=== PATIENT | female | born 1960 | race Caucasian/White ===

== ENCOUNTER 2016-07-04 11:02 | Emergency (ER) ==
--- NOTE | 2016-07-04 12:37 | PROVIDER DOCUMENTATION ---
HPI-Musculoskeletal Pain/Inj - GENERAL Chief Complaint: Fall Stated Complaint: FALL Time Seen by Provider: 07/04/16 12:26 Source: patient - HX OF PRESENT ILLNESS-MUSKULOSKELTAL Nature of Presenting Problem: 56 y/o WF c/o left knee pain after falling off the last step of an [employer] bus. Denies hitting head or loc. She was on her way back from [facility], M/W/F dialysis. Denies pain in other locations. The knee bled, controlled now. Ambulatory. Denies dec rom, but states it is sore. Denies obvious deformity Review of Systems - Adult - REVIEW OF SYSTEMS - ADULT Constitutional: reports: no symptoms reported. denies: chills, fever, fatique Eyes: reports: no symptoms reported. denies: blurred vision, double vision, eye pain Ears, Nose, Mouth & Throat: reports: no symptoms reported. denies: ear pain, nose pain, throat pain Cardiovascular: reports: no symptoms reported. denies: chest pain, palpitations Respiratory: reports: no symptoms reported. denies: cough, shortness of breath , wheezing Gastrointestinal: reports: no symptoms reported. denies: abdominal pain, diarrhea, nausea, vomiting Genitourinary: reports: no symptoms reported. denies: dysuria, discharge, frequency, incontinence Musculoskeletal: reports: see HPI, joint pain, joint swelling, muscle aches. denies: bone pain, back pain, neck pain Integumentary: reports: no symptoms reported. denies: rash Neurological: reports: no symptoms reported. denies: headache/migraines Psychiatric: reports: no symptoms reported Endocrine: reports: no symptoms reported Hematologic/Lymphatic: reports: no symptoms reported Allergic/Immunologic: reports: no symptoms reported All Other Systems: Reviewed and Negative Past History - Adult - PAST MEDICAL HISTORY-ADULT Review of Records: reports: Old Records Reviewed, Nursing Assessment Review, Medications Reviewed, Social history reviewed & non-contributory. Major Childhood Illnesses: reports: history unknown Cardiovascular: reports: HTN Respiratory: reports: denies history Gastrointestinal: reports: GERD Obstetrical/Gynecological: reports: other (breast cancer/ hysterectomy) Genitourinary: reports: dialysis (Mon, Wed, Fri), ESRD Musculoskeletal: reports: denies history Neurological: reports: denies history Psychiatric: reports: anxiety Endocrine/Immune: reports: Diabetes, thyroid disorder Other Conditions: reports: denies history - PRIOR SURGERIES/PROCEDURES Surgical/Procedure History: reports: cholecystectomy, hysterectomy, other (left mastectomy) - IMMUNIZATION STATUS Childhood Immunizations: UTD Flu Vaccine: UTD - FAMILY HISTORY Family History: reviewed, not pertinent - SOCIAL HISTORY Smoking: denies Substance Use: none/never Alcohol Use Frequency: never Physical Exam-Injury Related - Physical Exam-Injury Related Initial Vital Signs Reviewed: Yes General Appearance: appears well, alert, no apparent distress, obese Eyes: PERRL/EOMI, pink conjunctivae Head, Ears, Nose, Mouth & Throat: normocephalic/atraumatic, moist mucous membranes Neck: non-tender, full range of motion, supple, normal inspection. negative: C- spine tenderness Respiratory: chest non-tender, lungs clear, normal breath sounds, no pleuratic chest pain, no respiratory distress, no accessory muscle use. negative: respiratory distress, decreased breath sounds, accessory muscle use, crackles, rales, rhonchi, stridor, wheezing Cardiovascular: normal peripheral pulses, regular rate, rhythm, no edema, no gallop, no JVD, no murmur Peripheral Pulses: dorsalis-pedis (R): 2+, dorsalis-pedis (L): 2+ Lymphatic: no adenopathy Extremity: normal range of motion, normal gait, normal inspection, no pedal edema, no calf tenderness, normal capillary refill, pelvis stable, other (left knee: there is a very minimal abrasion on the anterior left knee, no swelling appreciated. Full rom, strength 5/5. Negative Lockmans, valgus and varus stressing.) Integumentary: normal color, warm/dry Neurologic: grossly normal, no motor/sensory deficits Psych/Mental Status: AL, normal mood/affect, normal thought content, normal thought process, oriented x 3 - Glascow Coma Score Best Eye Response ([place]): (4) open spontaneously Best Verbal Response ([place]): (5) oriented Best Motor Response ([place]): (6) obeys commands Progress - PLAN OF CARE/RESULTS Progress/Plan/Lab Results: Vital Signs Temp Pulse Resp BP Pulse Ox 07/04/16 14:32 73 18 119/68 100 07/04/16 11:15 97.3 F L 72 18 161/66 100 Penicillins Allergy (Mild, Verified 05/28/16 18:51) RASH Gabapentin [Neurontin] 300 mg PO ORDERED 01/13/14 Levothyroxine Sodium [Synthroid] 200 mcg PO QAM 01/13/14 Furosemide 40 mg PO DAILY 03/16/14 Niacin 500 mg PO DAILY 03/16/14 Amlodipine Besylate [Norvasc] 10 mg PO DAILY 06/14/14 Cinnamon Bark/Chromium Picolin [Cinnamon Plus Chromium Capsule] 1 each PO DAILY 03/29/15 Insulin Detemir [Levemir] 100 unit SUBQ QHS 03/29/15 Insulin Glulisine [Apidra] 30 unit SUBQ BID 03/29/15 Levothyroxine [Synthroid] 25 microgm PO DAILY 01/31/16 [place]-3 Fatty Acids/Fish Oil [Fish Oil 1,000 mg Softgel] 1 each PO DAILY Quetiapine Fumarate 200 mg PO HS 01/31/16 Saxagliptin [Onglyza] 5 mg PO DAILY 01/31/16 Venlafaxine HCl [Venlafaxine HCl ER] 375 mg PO BID 01/31/16 Glycerin [Colace] 1 each RC PRN PRN #15 supp.rect 05/28/16 Tramadol [Ultram] 50 mg PO Q8HR #20 tablet 07/04/16 Orders Category Date Time Status Knee Immobilizer .left Care 07/04/16 14:04 Active EXTREM LOWER W/O CONTRAST [CT] Stat Exams 07/04/16 13:22 Draft KNEE 3 VIEWS LEFT [RAD] Stat Exams 07/04/16 12:27 Draft - XRAY 1 XRAY: Left XRAY Study: Knee Impression: Abnormal (? possible lateral tibial plateau fracture. consider futher imaging with CT or MRI per Dr. Ortega, radiology) - CT/MRI 1 CT Study: Lower Ext Impression: Abnormal (chronic appearing lateral tibial plateau deformity. no definite acute fracture. no ligament rupture. Large nonspecific joint effusion.) Departure - Departure Time of Disposition Order: 14:05 DIAGNOSIS: Knee effusion, left Disposition: HOME 01 Certified Medical Emergency: Emergent Condition: Stable Additional Instructions: Follow up with Dr. Lua, orthopedic ED Follow Up Instructions: You have been treated by a care provider in the Emergency Department. These instructions are being provided to you so you can have an understanding of how to care for yourself upon discharge. Upon discharge from the Emergency Department, you are responsible for making arrangements for follow-up care by a physician of your choice. Take all prescribed medications as directed. Return to the Emergency Department immediately for any new or worsening symptoms. You may call the Physician Referral phone number at [phone] to obtain a list of Physicians who are taking new patients. Prescriptions: Tramadol [Ultram] 50 mg PO Q8HR #20 tablet Referrals: Ilir Rosado MD [Primary Care Provider] - Mayi Lua MD [STAFF PHYSICIAN] - Instructions: Knee Effusion, [id number] Attestation - Physician/ Mid-level Attestation Patient care was provided by Mid-level provider (ASSEMBLY MACHINE FEEDER/PA):: Yes Mid-level provider:: Radha Tipton Mid-level documentation review:: The Mid-level provider documentation, treatment plan and medical decision making was reviewed by the physician who agrees with all treatment and medical decision making by the MLP.
--- NOTE | 2016-07-04 13:30 | Diag Imaging Result Document ---
PROCEDURE NAME: KNEE 3 VIEWS LEFT - 07/04/2016 X-RAY LEFT KNEE 4 VIEWS: COMPARISON: None. FINDINGS: There is a large suprapatellar joint effusion. There is abnormal appearance of the bony trabeculae in an oblique fashion in the central tibial plateau extending to the lateral tibial plateau. A fracture here may be suspected. There is moderate, triple compartment osteoarthritis with significant degenerative osteophyte formation. There is also lateral subluxation of the patella with degenerative changes here. IMPRESSION: 1. Cannot exclude nondisplaced tibial plateau fracture. Correlate clinically. Further imaging may be considered. 2. Joint effusion. 3. Osteoarthritis.
--- NOTE | 2016-07-04 14:14 | Diag Imaging Result Document ---
PROCEDURE NAME: EXTREM LOWER W/O CONTRAST - 07/04/2016 CT OF THE KNEES: COMPARISON: Left knee x-ray earlier 07/04/2016. FINDINGS: There is indeed a large suprapatellar joint effusion on the left. There is some old degenerative deformity at the anterior lateral tibial plateau. No evidence of acute fracture. There is severe lateral tilting of the patella with extremely severe osteoarthritis here. There is also severe osteoarthritis at the medial joint compartment. The ACL and PCL are intact. There is degeneration at the patellar ligament insertion. The right knee demonstrates some osteoarthrosis but no fracture or dislocation. No joint effusion. IMPRESSION: 1. Large indeterminate joint effusion on the left. 2. Chronic-appearing mild depression of the lateral tibial plateau but no definite acute fracture. 3. The ACL and PCL are intact.
[2016-07-04 14:33] VITALS: BP 119/68
== END 2016-07-04 15:47 | disposition home or self-care (01) ==
LOC: ED 11:02
DX: M25.462 Effusion, left knee (principal); M25.562 Pain in left knee; S80.212A Abrasion, left knee, initial encounter; M79.1 Myalgia; E11.9 Type 2 diabetes mellitus without complications; E07.9 Disorder of thyroid, unspecified; I12.0 Hypertensive chronic kidney disease with stage 5 chronic kidney disease or end stage renal disease; N18.6 End stage renal disease; Z79.899 Other long term (current) drug therapy; Z85.3 Personal history of malignant neoplasm of breast; Z99.2 Dependence on renal dialysis; Z90.12 Acquired absence of left breast and nipple; E66.9 Obesity, unspecified; Z68.39 Body mass index [BMI] 39.0-39.9, adult; W17.89XA Other fall from one level to another, initial encounter; Z79.4 Long term (current) use of insulin
CPT/HCPCS: 73700

== ENCOUNTER 2016-12-26 10:45 | Observation (INO) ==
[2016-12-26 11:40] LABS: CALCIUM 8.7 mg/dL (8.8-10.2); POTASSIUM 3.4 mmol/L (3.5-5.1)
[2016-12-26 11:51] LABS: HEMATOCRIT 21.2 % (37.0-47.0); HEMOGLOBIN 6.7 g/dL (12.0-16.0); MCH 33.8 PG (27-31); MCHC 31.6 g/dL (33-37); MCV 107.1 FL (81-99); MPV 9.8 FL (7.4-10.4); RBC 1.98 XMIL (4.2-5.4)
[2016-12-26] MEDS ORDERED: NS 2,000 ML MISC PRN (13:36)
[2016-12-26] MEDS ORDERED: TIGHT: 0.2 ML/HR MISC PRN (13:36)
[2016-12-26] MEDS ORDERED: HEPARIN IV PRN (13:36)
[2016-12-26 14:46] LABS: ALBUMIN 4.2 g/dL (3.5-5.0); ALKALINE PHOSPHATASE 71 U/L (32-104); DIRECT BILIRUBIN < 0.20 mg/dL (0.00-0.20); GOT 19 U/L (10-30); GPT 5 U/L (10-36); TOTAL BILIRUBIN 0.19 mg/dL (0.20-1.00); TOTAL PROTEIN 7.1 g/dL (6.3-8.3)
--- NOTE | 2016-12-26 14:46 | PROVIDER DOCUMENTATION ---
This chart was entered by Williams Donovan Scribe, acting as scribe for Elier Gray MD. HPI-General Adult - General Chief Complaint: Abnormal Lab[s] Stated Complaint: LOW BLOOD Time Seen by Provider: 12/26/16 10:54 Source: patient Allergies/Adverse Reactions: Patient Allergies Allergy/AdvReac Type Severity Reaction Status Date / Time Penicillins Allergy Mild RASH Verified 12/26/16 11:07 Home Medications: Home Medication List Medication Instructions Recorded Confirmed Last Taken Type Gabapentin [Neurontin] 300 mg PO ORDERED 01/13/14 12/26/16 12/25/16 23:00 History Levothyroxine Sodium [Synthroid] 200 mcg PO QAM 01/13/14 12/26/16 12/26/16 09: 00 History Furosemide 40 mg PO DAILY 03/16/14 12/26/16 12/26/16 09:00 History Niacin 500 mg PO DAILY 03/16/14 12/26/16 12/25/16 13:00 History Amlodipine Besylate [Norvasc] 10 mg PO DAILY 06/14/14 12/26/16 12/25/16 23:00 History Cinnamon Bark/Chromium Picolin 1 each PO DAILY 03/29/15 12/26/16 12/25/16 History [Cinnamon Plus Chromium Capsule] Insulin Detemir [Levemir] 90 unit SUBQ QHS 03/29/15 12/26/16 12/23/16 History Levothyroxine [Synthroid] 25 microgm PO DAILY 01/31/16 12/26/16 12/26/16 09:00 History [facility]-3 Fatty Acids/Fish Oil [Fish 1 each PO DAILY 01/31/16 12/26/16 12/25/16 13 :00 History Oil 1,000 mg Softgel] Quetiapine Fumarate 200 mg PO HS 01/31/16 12/26/16 12/25/16 23:00 History Venlafaxine HCl [Venlafaxine HCl 375 mg PO BID 01/31/16 12/26/16 12/25/16 History ER] Tramadol [Ultram] 50 mg PO Q8HR #20 tablet 07/04/16 12/26/16 Unknown Rx Insulin Aspart [Novolog Flexpen] 0 unit SQ DIRECTED 12/26/16 12/26/16 09:00 History Linagliptin [Tradjenta] 5 mg PO DAILY 12/26/16 12/26/16 12/25/16 19:00 History - History of Present Illness -Gen Adult Nature of Presenting Problems: patient is a 56 y/o F that presents to the ER after receiving call from and was told he had low blood counts and needed transfused. She reports having labs drawn this week during dialysis. Patient reports some shortness of breath on exertion and weakness but no other symptoms. She had previous transfusion a few weeks ago. She reports no blood loss. Location of Pain/Injury: reports: none Quality of Pain: reports: none Severity: reports: moderate Onset/Duration: reports: unsure Timing: reports: still present, constant Context/Activities at Onset: reports: none Modifying Factors: worse with: exercise Associated Symptoms: reports: shortness of breath, weakness. denies: chest pain , diaphoresis, diarrhea, dizziness, fever/chills, genitourinary problems, nausea , vomiting Similar Symptoms Previously?: Yes Recently seen or treated by another doctor?: Yes Review of Systems - Adult - REVIEW OF SYSTEMS - ADULT Constitutional: reports: armando. denies: chills, fever Eyes: reports: no symptoms reported Ears, Nose, Mouth & Throat: denies: ear discharge, ear pain, sinus problem Cardiovascular: denies: chest pain, edema, palpitations, syncope Respiratory: reports: dyspnea on exertion, shortness of breath. denies: chronic cough, cough, wheezing Gastrointestinal: denies: abdominal pain, hematemesis, diarrhea, nausea, rectal bleeding, vomiting Genitourinary: reports: no symptoms reported Musculoskeletal: reports: muscle weakness. denies: joint pain, joint swelling Integumentary: reports: no symptoms reported Neurological: denies: dizziness/vertigo, headache/migraines, loss of balance, numbness, paresthesia Psychiatric: reports: no symptoms reported Endocrine: reports: no symptoms reported Hematologic/Lymphatic: reports: no symptoms reported Allergic/Immunologic: reports: no symptoms reported All Other Systems: Reviewed and Negative Past History - Adult - PAST MEDICAL HISTORY-ADULT Review of Records: reports: Old Records Reviewed, Nursing Assessment Review, Medications Reviewed Cardiovascular: reports: HTN Gastrointestinal: reports: GERD Obstetrical/Gynecological: reports: other (breast cancer/ hysterectomy) Genitourinary: reports: dialysis (Mon, Wed, Fri), ESRD Psychiatric: reports: anxiety Endocrine/Immune: reports: Diabetes, thyroid disorder - PRIOR SURGERIES/PROCEDURES Surgical/Procedure History: reports: cholecystectomy, hysterectomy, other (left mastectomy) - IMMUNIZATION STATUS Childhood Immunizations: UTD Flu Vaccine: UTD - FAMILY HISTORY Family History: reviewed, not pertinent - SOCIAL HISTORY Smoking: non-smoker Living Situation: family Physical Exam-General - PHYSICAL EXAM-ADULT Initial Vital Signs Reviewed: Yes - CONSTITUTIONAL General Appearance: alert, no apparent distress - EYES Eyes: PERRL/EOMI, pink conjunctivae. negative: pale conjunctivae - HEAD, EARS, NOSE, MOUTH & THROAT HENMT: normocephalic/atraumatic, moist mucous membranes, normal ENT inspection - NECK Neck: full range of motion, normal inspection - RESPIRATORY Respiratory: lungs clear, normal breath sounds, no respiratory distress, no accessory muscle use - CARDIOVASCULAR Cardiovascular: regular rate, rhythm, no edema, no murmur - GASTROINTESTINAL (ABDOMEN) Abdominal Exam: normal bowel sounds, non tender, soft - MUSCULOSKELETAL Extremity: normal range of motion, no pedal edema, normal capillary refill - SKIN Integumentary: normal color, warm/dry. negative: pallor - NEUROLOGIC Neurologic: deckhand maintenance II-XII nml as tested, no motor/sensory deficits - PSYCHIATRIC Psych/Mental Status: normal mood/affect, normal thought content, normal thought process, oriented x 3 Progress - PLAN OF CARE/RESULTS Progress/Plan/Lab Results: Vital Signs - 8 hr 12/26/16 10:48 Temperature 98.5 F Pulse Rate 90 Respiratory Rate 18 Blood Pressure 118/79 O2 Sat by Pulse Oximetry 95 Orders Category Date Time Status BMP [BASIC METABOLIC PANEL] [CHEM] Stat Lab 12/26/16 11:09 Ordered CBC WITH NO DIFF [HEME] Stat Lab 12/26/16 11:09 Ordered TYPE & SCREEN [BBK] Stat Lab 12/26/16 11:09 Ordered Vital Signs Temp Pulse Resp BP Pulse Ox 12/26/16 10:48 98.5 F 90 18 118/79 95 Penicillins Allergy (Mild, Verified 12/26/16 11:07) RASH Gabapentin [Neurontin] 300 mg PO ORDERED 01/13/14 Levothyroxine Sodium [Synthroid] 200 mcg PO QAM 01/13/14 Furosemide 40 mg PO DAILY 03/16/14 Niacin 500 mg PO DAILY 03/16/14 Amlodipine Besylate [Norvasc] 10 mg PO DAILY 06/14/14 Cinnamon Bark/Chromium Picolin [Cinnamon Plus Chromium Capsule] 1 each PO DAILY 03/29/15 Insulin Detemir [Levemir] 90 unit SUBQ QHS 03/29/15 Levothyroxine [Synthroid] 25 microgm PO DAILY 01/31/16 [facility]-3 Fatty Acids/Fish Oil [Fish Oil 1,000 mg Softgel] 1 each PO DAILY Quetiapine Fumarate 200 mg PO HS 01/31/16 Venlafaxine HCl [Venlafaxine HCl ER] 375 mg PO BID 01/31/16 Tramadol [Ultram] 50 mg PO Q8HR #20 tablet 07/04/16 Insulin Aspart [Novolog Flexpen] 0 unit SQ DIRECTED 12/26/16 Linagliptin [Tradjenta] 5 mg PO DAILY 12/26/16 Laboratory 12/26/16 12/26/16 12/26/16 11:03 11:03 11:03 WBC 8.25 RBC 1.98 L Hgb 6.7 L Hct 21.2 L MCV 107.1 H MCH 33.8 H MCHC 31.6 L RDW Std Deviation 16.8 H Plt Count 203 MPV 9.8 Sodium 134 L Potassium 3.4 L Chloride 93 L Carbon Dioxide 25 Anion Gap 16 BUN 36 H Creatinine 5.1 H Estimated GFR/1.73 m2 9 BUN/Creatinine Ratio 7 Glucose 187 H Calculated Osmolality 281 Calcium 8.7 L Blood Type O POSITIVE Antibody Screen NEGATIVE Result Diagrams: 12/26/16 11:03 12/26/16 11:03 - CONSULTS/PCP/HOSPITALIST Notification #1 *Consult/PCP/Hospitalist*: Time Discussed: 12:56 Reason/Comments: anemia Consult Disposition: Admit (to hospitalist) #2 Consult: Ashley accepted by RUHKSANA Time Discussed: 13:05 Consult Disposition: Will see in ED, Admit Departure - Departure Date of Disposition Decision: 12/26/16 Time of Disposition Decision: 13:06 DIAGNOSIS: Anemia, ESRD on dialysis Disposition: ADMITTED INPATIENT 09 Certified Medical Emergency: Emergent Condition: Stable - Critical Care Note This patient required my direct & personal management of CC.: No This chart was documented by the indicated scribe, (Williams Donovan, Scribe) and accurately reflects the services I performed and decisions made by me, Elier Gray MD, as attested by the provider's signature.
--- NOTE | 2016-12-26 14:51 | Diag Imaging Result Doc PS360 ---
CHEST-2 VIEWS - 12/26/2016 INDICATION: hypoxia TECHNIQUE: COMPARISON: 05/28/2016 FINDINGS: Stable moderate cardiomegaly. Pulmonary vascularity is distended, more so than on the prior exam. No definite infiltrates or edema. No pneumothorax or large effusion. IMPRESSION: Cardiomegaly. Worsening pulmonary vascular congestion. Electronically signed by Norman Ortega 12/26/2016 2:48 PM
--- NOTE | 2016-12-26 15:26 | HISTORY AND PHYSICAL ---
VISITOR SERVICES TECHNICIAN: Dr. Trav Christine. PRIMARY CARE PHYSICIAN: Dr. Ilir Rosado. CHIEF COMPLAINT: Shortness of breath and abnormal labs. HISTORY OF PRESENT ILLNESS: Mrs. Jiang is a pleasant 56-year-old female with a history of ESRD on hemodialysis, chronic anemia, hypothyroidism, obesity, untreated sleep apnea, diabetes mellitus, who presents to the ER after being directed here by Dr. Christine for profound anemia. Apparently she received a PRBC transfusion for anemia around 2 weeks ago. Recheck today revealed that she had again low hemoglobin and hematocrit and she was directed here for further treatment. In the ER she was noted to have a hemoglobin 6.7, and hematocrit of 21.2 with a fairly significant macrocytosis. She denies any hematochezia or hematemesis. She states she reports possibly some melena. Subjectively she complains of shortness of breath but denies any chest pain. She also has lower extremity edema and occasional orthopnea. She denies any cough, congestion, fever, chills. After reviewing her history she has been here before for anemia and initially had endoscopy done with Dr. Chiang around 2 years ago which showed some gastritis but nothing acute. She is now going to be admitted for further treatment and evaluation. PAST MEDICAL HISTORY: 1. ESRD on hemodialysis followed by Dr. Christine. 2. Hypothyroidism. 3. Chronic anemia. 4. Diabetes mellitus. 5. Morbid obesity. 6. Pica, patient reports eating seven 24 ounce glasses of ice a day. 7. Hyperlipidemia. 8. Hypertension. 9. Peripheral neuropathy. 10. History of breast cancer. SURGICAL HISTORY: Left mastectomy, hysterectomy, cholecystectomy, right and left AV shunt, left reversed total shoulder arthroplasty. SOCIAL HISTORY: Patient denies tobacco, alcohol or drug use. FAMILY HISTORY: Noncontributory. REVIEW OF SYSTEMS: Fourteen-point review of systems obtained and found to be negative with the exception of the HPI. HOME MEDICATIONS: Norvasc 10 mg daily. Cinnamon bark. Chromium 1 daily. Lasix 40 mg daily. Neurontin 300 mg as directed. NovoLog FlexPen as directed. Levemir 90 units at bedtime. Synthroid 200 mcg a.m. Tradjenta 5 mg daily. Niacin 500 mg daily. [place]-3 fish oil 1 daily. Quetiapine 200 mg at bedtime. Tramadol 50 mg as needed. Venlafaxine 375 mg p.o. b.i.d. ALLERGIES: Penicillin. PHYSICAL EXAMINATION: VITAL SIGNS: Blood pressure is 118/79, pulse rate is 90, respiratory rate 18, O2 saturation 95% on room air. Temperature is 98.5 degrees. GENERAL: Morbidly obese, female, lying in hospital bed. No acute distress. NEUROLOGIC: The patient is awake, alert, and oriented. She follows commands without focal deficits. HEENT: Head is atraumatic, normocephalic. Her pupils are equal, round, reactive to light. Oral mucosa is moist. Trachea is midline. CHEST: Diminished throughout with occasional expiratory wheezes. CV: Regular. S1, S2 is noted. No murmurs. GI: Soft, nondistended, positive bowel sounds. EXTREMITIES: Trace to 1+ edema bilaterally. Diminished pulses bilaterally. DIAGNOSTIC DATA: WBC 8.25, hemoglobin 6.7, hematocrit 21.2, MCV 107.1, platelet count 203,000. Sodium 134, potassium 3.4, chloride 93, CO2 25, anion gap 16, BUN 36, creatinine 5.1, glucose 187, calcium 8.7. ASSESSMENT AND PLAN: 1. Unexplained anemia: Iron studies have been ordered. We will also check a thyroid function panel. She is going to be transfused 2 units and we will monitor her H and H. GI will also be consulted for possible endoscopy. 2. Dyspnea: Likely multifactorial to include anemia, possible COPD and heart failure. We are going to check an echo, chest x-ray, EKG and trend her enzymes. 3. ESRD on hemodialysis per Dr. Christine and his team. Appreciate the input. 4. Diabetes mellitus: We will add pattern sugars and sliding scale insulin. Continue her home medications. 5. Hypertension: Chronic and stable, continue home medications. 6. Hypokalemia: We will check a magnesium and replace, trend her electrolytes. 7. DVT prophylaxis will be provided with SCDs given possibility of bleeding. Further recommendations to follow. Dictated by RUKHSANA Self for Robert Baptiste MD cc: RUKHSANA Self MD I have seen and examined patient and I agree with the plan above. ESRD with Fluid overload. Severe anemia etiology unclear. Will be needing GI work up. MTDD
--- NOTE | 2016-12-26 15:30 | CONSULTATION ---
DATE OF CONSULTATION: 12/26/2016 REASON FOR CONSULTATION: Assistance with management. HISTORY OF PRESENT ILLNESS: Ms. Jiang is a 56-year-old, white female, who is well known to us. She has end-stage kidney disease and receives hemodialysis every Saturday, Saturday, and Saturday. She has diabetes, hypertension, hyperlipidemia, peripheral neuropathy, hypothyroidism, peripheral vascular disease. She has had problems with anemia and had a transfusion about a month ago. Her last unit transfused was on 12/05/2016. Her hemoglobin has trended back down such that it was 6.7 on Saturday. She has fatigue, exercise intolerance, and dark stool though no overt red blood and no nausea or vomiting. She has had some chest discomfort as well. She has subjective chills but no fever. No shortness of breath at rest. No cough or sputum production. Because of her recurrent problems with anemia, she is admitted to the hospital in order to receive a transfusion and also to have an evaluation. She has symptoms related to her anemia with shortness of breath and chest discomfort. PAST MEDICAL HISTORY: As above. HOME MEDICATIONS: Gabapentin, levothyroxine, niacin, furosemide, amlodipine, insulin, quetiapine, venlafaxine, omega-3, tramadol, linagliptin, insulin. ALLERGIES: Penicillin. SOCIAL: She lives at home. FAMILY HISTORY: Noncontributory. REVIEW OF SYSTEMS: Otherwise noncontributory. PHYSICAL EXAMINATION: Vital Signs: Blood pressure 118/79, heart rate 90, respiration 18, afebrile. Generally: She is a middle-aged white female in no acute distress. Skin: Pale and dry. No bruising. Eyes, Mouth: Pupils are equal and round. Conjunctivae are pink and moist. Oropharynx is pale but moist. Neck: Supple. Trachea is midline. Neck vein distention is not present. Heart: Regular without gallops or murmurs. Lungs: Have equal breath sounds. No crackles or wheezes. Abdomen: Soft, nontender. Bowel sounds are present. Extremities: Have 1 to 2+ edema. No clubbing or cyanosis. LABORATORY DATA: Sodium 134, potassium 3.4, chloride 93, bicarbonate 25. BUN 36, creatinine 5.1. Hemoglobin 6.7. IMPRESSION: 1. Symptomatic anemia. She will be admitted to the hospital and transfused on dialysis. We will ask GI to assist with her management and perform diagnostic studies as appropriate. If no GI source, then she may need to see Hematology. Her other cell lines are normal, however. We will check iron studies, B12, folate. 2. Hypertension in target. 3. Diabetes/hyperlipidemia. Will refer to the primary team. cc: Trav Christine MD
[2016-12-26] MEDS ORDERED: NS 2,000 ML ONE (15:44)
--- NOTE | 2016-12-26 16:38 | EKG Report ---
Test Performed on : 12/26/2016 3:37:14 PM Test Reason : dyspnea Blood Pressure : / mmHG Vent. Rate : 080 BPM Atrial Rate : 080 BPM P-R Int : 162 ms QRS Dur : 170 ms QT Int : 462 ms P-R-T Axes : 038 055 018 degrees QTc Int : 532 ms Normal sinus rhythm. Indeterminate axis Right bundle branch block Possible Inferior infarct (cited on or before 13-JAN-2014) Abnormal ECG When compared with ECG of 31-JAN-2016 12:04, fusion complexes are no longer present aberrant conduction. is no longer present Criteria for Anterior infarct are no longer present Criteria for Anterolateral infarct are no longer present Confirmed by Alonzo ELIZONDO, Ilir Massey ([id number]) on 12/27/2016 2:59:58 PM
[2016-12-27] MEDS: HUMALOG SUBQ SCH ×4 (05:59→22:39)
[2016-12-27] MEDS: ULTRAM PO SCH ×3 (06:00→22:41)
[2016-12-27 07:02] LABS: IRON SATURATION 19 %; TIBC 258 ug/dL; TOTAL IRON 50 ug/dL (49-151); UNBOUND IRON 208 ug/dL (112-346)
[2016-12-27 07:04] LABS: CALCIUM 8.9 mg/dL (8.8-10.2); POTASSIUM 3.3 mmol/L (3.5-5.1)
[2016-12-27 07:23] LABS: FERRITIN 378 ng/mL (13-150)
[2016-12-27] MEDS: NORVASC PO SCH (08:57)
--- NOTE | 2016-12-27 09:13 | ECHO REPORT ---
ORDER DATE: 12/26/2016 INDICATION: Dyspnea, hypertension, diabetes. FINDINGS: 1. Right atrium is normal in size. 2. Mild tricuspid regurgitation. RV systolic pressure of 38. 3. Normal RV size and systolic function. 4. Trace pulmonic insufficiency. 5. Mild left atrial enlargement at 4.9 cm. 6. No mitral prolapse. Mild mitral regurgitation. 7. Upper limits of normal LV size with an end-diastolic dimension of 5.6. Moderate left ventricular hypertrophy with a posterior and interventricular septal wall thickness of 1.5 cm each. Normal LV systolic function. Calculated EF of 69% with normal wall motion. 8. Aortic valve opens well. No evidence of stenosis or insufficiency. 9. Aorta appears normal in visualized segments. 10. There is a small posterior pericardial effusion with no evidence of tamponade physiology. cc: MD Kevin Galo CRNP
--- NOTE | 2016-12-27 10:43 | PROGRESS NOTE ---
DATE: 12/27/2016 TIME SEEN: 07 SUBJECTIVE: Ms. Jiang is resting quietly in bed. She is sitting up. Her feet are dependent. She states that she did not sleep well. She did not get her sleeper. She denies chest pain or increased work of breathing. States that she is breathing better and her weakness has improved. OBJECTIVE: Vital Signs: Her most recent vital signs are temperature 98.6 degrees, blood pressure 137/85, heart rate 90, respirations 18. She is on room air. She has had 750 in. She has had 2.5 L removed on dialysis yesterday. Laboratory Data: Sodium 140, potassium 3.3, chloride is 98, CO2 27, BUN 24, creatinine 3.5, glucose 196, anion gap is 15, calcium 8.9. Albumin yesterday was 4.2. White count 8.25 with a hemoglobin of 6.7 drawn on the . She has received 2 units of packed red blood cells since this lab. Physical Examination: General: This is a 56-year-old, white female. She is in no acute distress. Her skin is pale. She is warm, and dry. HEENT: Normocephalic, atraumatic. Conjunctivae pale pink. She has ZAC. Mucous membranes are moist. Neck: Supple. Trachea midline. No JVD. Cardiovascular: Regular rate and rhythm. She is without murmur or gallop. Lungs: Clear to auscultation anteriorly. Equal excursion on room air. Abdomen : Large, round, soft, nontender. Positive bowel sounds. Genitourinary: Not inspected. Minimal void with dialysis assist. Extremities: Continues with 1 to 2+ lower extremity edema. No clubbing or cyanosis. Neurological: Alert and oriented x3. ASSESSMENT AND PLAN: 1. End-stage renal disease. Patient had her routine dialysis yesterday. There is no indication for intervention today. We will plan for her prescribed normal treatment in the morning. 2. Electrolytes and acid-base balance. These are stable. 3. Anemia. Patient has been symptomatic with anemia. She has a GI consult on board. She has received 2 units of packed red blood cells during the night. This is the 2nd time in the past 30 days that patient's hemoglobin has dropped below 7. We will defer to GI for a workup. Otherwise, we are checking her anemia panel with iron studies, B12, and folate. I would like to thank you for allowing us to follow with this patient. Seen, data reviewed, discussed with Austin Ferraro on 12/27/16. I agree with the above assessment and plan of care. rg Dictated by RUKHSANA Bone for Trav Christine MD cc: RUKHSANA Bone MD [facility]
--- NOTE | 2016-12-27 13:46 | PROGRESS NOTE ---
DATE: 12/27/2016 SUBJECTIVE: Today, Ms. Jiang referred to be doing a whole lot better. Of note, she says she has been having some hair loss and being very cold. She ran a little bit of diarrhea since she had her gallbladder removed. OBJECTIVE: Vital Signs: Blood pressure is 187/85, pulse of 90, respirations 20, temperature 98.6 degrees. General: Ms. Jiang is a 56-year-old female. She is in bed, no distress. She was actually having her lunch when I saw her. She is not in any distress. HEENT: Mucosa is pink and moist. Anicteric. Acyanotic. Neck is supple. Chest: Good air entry bilaterally. A few bibasilar crepitations. Cardiovascular: Regular rate and rhythm. Abdomen is soft, distended. Extremities 1+ pedal edema. 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 There is no focal neurological deficit. LABORATORY DATA: Sodium is 140, potassium is 3.3, chloride is 98, bicarb is 27, creatinine is 3.3, consistent with her end-stage renal disease. A TSH is 51.39. Patient is on 225 mcg of levothyroxine. A chest x-ray which was done yesterday shows cardiomegaly and worsening pulmonary vascular congestion. An echocardiogram showed EF of 69%. ASSESSMENT: 1. Fluid overload likely due to underlying endstage renal disease. 2. Respiratory distress on presentation due to pulmonary edema, improved with dialysis. 3. Endstage renal disease. 4. Severe hypothyroidism. We will increase her levothyroxine to 250 mcg daily. 5. Severe normocytic anemia. Hemoglobin and hematocrit was 6.7 on presentation. The patient was transfused 2 packed red blood cells yesterday during dialysis. She is going to get an esophagogastroduodenoscopy and possible colonoscopy tomorrow with GI to give us some answers about why the patient continues to be anemic. We will keep the patient n.p.o. after midnight, and we will withhold any anticoagulation that she is on for tomorrow. cc: Robert Baptiste MD
[2016-12-27] MEDS ORDERED: GOLYTELY PO ONE (14:00)
[2016-12-27] MEDS: EFFEXOR XR PO SCH ×2 (14:41→22:41)
[2016-12-27] MEDS: SEROQUEL PO SCH (22:41)
[2016-12-28] MEDS: ULTRAM PO SCH ×3 (05:54→21:20)
[2016-12-28] MEDS: HUMALOG SUBQ SCH ×4 (06:04→21:20)
[2016-12-28] MEDS: SYNTHROID PO SCH (06:05)
[2016-12-28] MEDS ORDERED: NS 2,000 ML MISC PRN (06:57)
[2016-12-28] MEDS ORDERED: TIGHT: 0.2 ML/HR MISC PRN (06:57)
[2016-12-28] MEDS ORDERED: HEPARIN IV PRN (06:57)
[2016-12-28 07:18] LABS: MANUAL DIFF NEEDED? NO
[2016-12-28 07:28] LABS: BASO% 0.6 % (0.0-0.8); EOS# 0.24 X1000 (0.0-0.7); EOS% 2.8 % (0.0-10.0); HEMATOCRIT 29.1 % (37.0-47.0); HEMOGLOBIN 9.5 g/dL (12.0-16.0); IMM GRAN# 0.04 X1000 (0.0-0.04); IMM GRAN% 0.5 % (0.0-0.5); LYMPH# 0.93 X1000 (1.2-3.4); LYMPH% 10.8 % (20.5-51.1); MCH 32.6 PG (27-31); MCHC 32.6 g/dL (33-37); MONO# 0.71 X1000 (0.11-0.59); MONO% 8.3 % (1.7-9.3); MPV 10.4 FL (7.4-10.4); PLT 188 X1000 (130-400); RBC 2.91 XMIL (4.2-5.4)
[2016-12-28 07:48] LABS: ALBUMIN 4.1 g/dL (3.5-5.0); POTASSIUM 3.9 mmol/L (3.5-5.1)
[2016-12-28] MEDS ORDERED: NS 2,000 ML ONE (08:31)
[2016-12-28] MEDS ORDERED: HEPARIN ONE (08:32)
[2016-12-28] MEDS ORDERED: EPOGEN SUBQ ONE (09:34)
[2016-12-28] MEDS ORDERED: TYLENOL PO ONE (09:39)
--- NOTE | 2016-12-28 10:34 | PROGRESS NOTE ---
DATE: 12/28/2016 SUBJECTIVE: She had some nausea and vomiting with her bowel prep. She states that she did have clear stool by the end. No shortness of breath. OBJECTIVE: Vital Signs: Blood pressure 191/78, heart rate 71, respiration 18, afebrile. Intake 1.4 L. Output 600 mL. General: No acute distress. Skin: Pale and dry. Conjunctivae are pink. Oropharynx is moist. Neck: Neck veins are not appreciated. Heart: Regular. Lungs: Have equal breath sounds. No crackles. Abdomen: Obese and soft. Nontender. Bowel sounds present. Extremities: Have trace edema. No clubbing or cyanosis. LABORATORY DATA: Sodium 140, potassium 3.9, chloride 96, bicarbonate 24, BUN 33, creatinine 4.7. Hemoglobin 9.5. IMPRESSION: 1. End-stage kidney disease. She will have her routine hemodialysis treatment today. 2. Electrolytes/acid base. In target. 3. Anemia. Improved with transfusions. She has esophagogastroduodenoscopy and colonoscopy planned for today. We will dose with erythropoietin today. 4. Hypertension. Observe following dialysis. cc: Trav Christine MD
[2016-12-28] MEDS ORDERED: ZEMURON ONE (13:51)
[2016-12-28] MEDS ORDERED: NORCURON ONE (13:51)
[2016-12-28] MEDS ORDERED: DIPRIVAN 1% ONE (14:01)
[2016-12-28] MEDS ORDERED: ROBINUL ONE (14:01)
[2016-12-28] MEDS ORDERED: XYLOCAINE-MPF 2% ONE (14:01)
--- NOTE | 2016-12-28 14:59 | CONSULTATION ---
DATE OF CONSULTATION: 12/27/2016 REFERRING PHYSICIAN: Dr. Christine PRIMARY CARE DOCTOR: Ilir Rosado. REASON FOR CONSULTATION: Anemia. HISTORY OF PRESENT ILLNESS: Ms. Jiang is a 56-year-old female who was admitted on 12/18/2016 for shortness of breath and profound anemia. Yesterday, she got a blood transfusion. She has end- stage renal disease on hemodialysis for almost a year, being followed Dr. Christine. She had a similar presentation in 2014. At that time an EGD showed evidence of gastritis with no active bleeding. During this admission her hemoglobin is 6.7, hematocrit 21.2, with significant macrocytosis. She denies any signs of overt GI bleeding. Denies any nausea, vomiting, vomiting blood, or passing blood in the stools, or black stools. She denies any nosebleeds, gum bleeding, or any kind of blood in the urine. She does admit to taking Aleve every day for arthritis and she does take a lot of ice tea. PAST MEDICAL HISTORY: 1. End-stage renal disease on hemodialysis per Dr. Christine for last 1 year. 2. Hypothyroidism. 3. Obesity. 4. Chronic anemia. 5. Diabetes mellitus for many years. 6. Morbid obesity. 7. Pica. 8. Hyperlipidemia. 9. Hypertension. 10. Peripheral neuropathy. 11. History of breast cancer. PAST SURGICAL HISTORY: Left mastectomy, hysterectomy, cholecystectomy, right and left AV shunt, left reversed total shoulder arthroplasty. SOCIAL HISTORY: Denies alcohol, tobacco, or illicit drugs. FAMILY HISTORY: Noncontributory. No history of colon cancer in her family. REVIEW OF SYSTEMS: The patient denies any fevers, rigors, chills, chest pain, shortness of breath, dyspnea at rest. Does have exertional shortness of breath and feeling weak and tired related to anemia. Denies any nausea, vomiting, vomiting blood, passing blood in the stools, or any black stools. Denies any history of blood in the urine. Denies any nosebleeds , gum bleeding. Denies any neurologic complaints. MEDICATIONS: In the home are reviewed. Medications in the hospital were also reviewed. ALLERGIES: Penicillin. PHYSICAL EXAMINATION: Vital signs: Temperature of 98.6 degrees, pulse rate of 90, respiratory rate of 20, blood pressure 187/85, saturating 98% on room air. Body weight of 232 pounds 9.4 ounces, BMI of 39.5 kg. General appearance: Obese, lying in bed, in no acute distress. HEENT: Pale conjunctivae. No icterus. Pupils equal, react to light. Neck: Supple. Chest: Decreased breath sounds. Cardiac: Regular rate and rhythm. No murmur. Abdomen: Obese , soft, nontender, nondistended. Bowel sounds are noted. No guarding or rebound. Extremities: No cyanosis, clubbing. She has AV grafts noted in the upper extremities. Neurologic: She is alert, awake, oriented. LABS: Hemoglobin and hematocrit are 6.7 and 21.2, white count of 8.2, platelet count of 203,000, MCV of 107.1. Sodium 140, potassium 3.3, chloride 98, bicarb 27, anion gap of 15, BUN of 24, creatinine 3.5, glucose of 196, calcium is 8.9. Iron level of 50, percent saturation 19, ferritin of 378. AST 19, ALT 5, alkaline phosphatase 71, total bilirubin is 0.19, direct of less than 0.2. Total protein 7.1, albumin of 4.2. B12 of 1464, folate of 24. TSH 51.39. Chest x-ray done on 12/26 showed cardiomegaly, worsening pulmonary vascular congestion. She is status post 2 unit blood transfusion yesterday. IMPRESSION: 1. Macrocytic anemia. 2. History of use of nonsteroidal anti-inflammatory drugs. 3. End-stage renal disease, on hemodialysis on Saturday, Saturday, Saturday. 4. Diabetes. 5. Morbid obesity. 6. Symptomatic anemia. RECOMMENDATIONS: 1. We will schedule the patient for an EGD and colonoscopy tomorrow. In this regard, she will be on clear liquids today. Will make her NPO past midnight. I will give her a gallon of GoLYTELY today. We will start her on PPIs, Pepcid 20 mg IV q.12 hours. 2. Will call for a hematology consult. 3. Counseled the patient to avoid any NSAIDs and avoid excessive tea. The patient needs to follow gastroesophageal reflux lifestyle changes. Further recommendations pending hospital course. cc: MD Ilir Pabon MD Manish Arora, MD MTDD
[2016-12-28] MEDS: EFFEXOR XR PO SCH ×2 (15:34→21:45)
[2016-12-28] MEDS: NORVASC PO SCH (15:35)
--- NOTE | 2016-12-28 15:52 | PROGRESS NOTE ---
DATE: 12/28/2016 Today Ms. Jiang referred to be doing fine. She had the preparation for the GI procedures. Did have some nauseation but no major complaints. OBJECTIVE: Vital signs: Blood pressure was 183/78, pulse of 68, respiration is 14, temperature is 98.2 degrees. General: Ms. Jiang is a 56-year-old female. She was in bed and did not seem to be in any distress. HEENT: Mucosa is pink and moist. Anicteric. Acyanotic. Neck: Supple. Chest: Good air entry bilaterally. Few bibasilar crepitations. Cardiovascular: Regular rate and rhythm. Abdomen: Soft. Extremity: 1+ pedal edema. 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 There is no focal neurological deficit. LABORATORY DATA: WBC is 8.60, hemoglobin is 9.5, platelet count of 188,000. Chemistry is reviewed. It is consistent with end-stage renal disease. ASSESSMENT: 1. Fluid overload due to underlying end-stage renal disease. This has improved with dialysis. 2. Respiratory distress on presentation due to pulmonary edema improved with dialysis. 3. End-stage renal disease on hemodialysis. 4. Severe hypothyroidism. Patient is now on levothyroxine 250 mcg daily. 5. Severe normocytic anemia status post 2 PRBC transfusion. The patient is pending EGD and colonoscopy. Today we will re-evaluate later on with the report of the procedures. cc: Robert Baptiste MD
[2016-12-28] MEDS: SEROQUEL PO SCH (21:20)
[2016-12-29] MEDS: SYNTHROID PO SCH ×2 (05:46→06:09)
[2016-12-29] MEDS: ULTRAM PO SCH (05:48)
[2016-12-29] MEDS: HUMALOG SUBQ SCH ×2 (06:08→10:55)
[2016-12-29 06:28] LABS: ALBUMIN 3.7 g/dL (3.5-5.0); CALCIUM 8.8 mg/dL (8.8-10.2)
[2016-12-29 07:51] VITALS: BP 151/67
[2016-12-29] MEDS: NORVASC PO SCH (10:47)
[2016-12-29] MEDS: EFFEXOR XR PO SCH (10:47)
--- NOTE | 2016-12-29 14:55 | PROGRESS NOTE ---
DATE: 12/29/2016 DISPOSITION: Home. FOLLOWUP: 1. Dr. Christine. 2. Dr. Chiang. PRIMARY CARE PROVIDER: Dr. Ilir Rosado. INTERVENTION DONE DURING THIS ADMISSION: 1. EGD was done by Dr. Chiang, which was unremarkable. 2. Colonoscopy was attempted, but was unsuccessful because of poor preparation. IMAGING STUDIES OF SIGNIFICANCE: 1. An echocardiogram was done which showed ejection fraction of 69% with RV systolic pressure of 38, some moderate left ventricular hypertrophy with a posterior and interventricular septal wall of 1.5. 2. A chest x-ray was done which should cardiomegaly, worsening pulmonary vascular congestion. ADMISSION DIAGNOSES: 1. Unexplained anemia. 2. Dyspnea. 3. Endstage renal disease. 4. Hypertension. DIAGNOSES AT THE TIME OF DISCHARGE: 1. Fluid overload secondary to underlying endstage renal disease. 2. Respiratory distress on presentation due to pulmonary edema, improved with dialysis. 3. Possible diastolic heart failure. 4. Cardiomegaly with concentric hypertrophic cardiomyopathy. 5. Severe hypothyroidism. 6. Severe normocytic anemia likely related with endstage renal disease, status post 2 packed red blood cell transfusion. Patient had an esophagogastroduodenoscopy which was unremarkable. 7. Morbid obesity with body mass index of 39.5. 8. Suspicion of sleep apnea. DISCHARGE MEDICATIONS: 1. Gabapentin 300 p.r.n. 2. Levothyroxine 250 p.o. daily. 3. Furosemide 40 mg daily. 4. Amlodipine 10 mg daily. 5. Insulin Levemir 19 units subcutaneous daily. 6. Quetiapine 200 p.o. at bedtime. 7. Tramadol p.r.n. 8. Linagliptin 5 mg daily. 9. Sliding scale insulin as directed. 10. Omeprazole 20 mg daily. PRESENTING COMPLAINT: Shortness of breath and abnormal labs. HISTORY OF PRESENTING COMPLAINT: Ms. Jiang is a 56-year-old female, who normally follows up with Dr. Christine for endstage renal disease. Patient was brought in because of profound anemia for wake up. The patient also had some shortness of breath with some pulmonary edema on chest x-ray, which resolved with dialysis. During the hospital stay, patient was transfused 2 packed red blood cells. EGD was done and was unremarkable sigmoid colon. The colonoscopy was attempted, but there was poor preparation. Patient will follow up with Dr. Chiang for outpatient procedure. The patient also got dialyzed during the hospital stay. Shortness of breath improved. Echocardiogram did confirm that she has cardiomegaly with concentric hypertrophic cardiomyopathy likely due to underlying hypertension versus possible infiltrative disease like hypothyroidism or the diabetes mellitus itself. Today Ms. Jiang referred to be doing a lot better. She is going to be discharged to follow up with Dr. Chiang for outpatient colonoscopy and also follow up with Dr. Christine. Her hemoglobin went up to 9.5 after the 2 PRBC transfusion, and her chemistry has been reviewed consistent with endstage renal disease. ACTIVITY: Activity as tolerated. DIET: Renal and cardiac diet. FOLLOWUP: Follow up with Dr. Chiang, Dr. Christine and Dr. Rosado. TIME SPENT FOR DISCHARGE: 38 minutes. cc: Robert Baptiste MD
[2016-12-30] MEDS ORDERED: PRILOSEC PO SCH (07:00)
--- NOTE | 2017-01-19 16:10 | OPERATIVE NOTE ---
PROCEDURE DATE: 12/28/2016 PROCEDURE/PROGRESS NOTE: I was asked to see the patient with anemia requiring blood transfusion. She had similar spell a month before. Patient is scheduled for colonoscopy and EGD. However the patient was evaluated by Anesthesia, she appears to be too fragile, and I am consulted, and procedure was canceled. We will follow her closely in discussion with nephrologists. Since there is no sign of any rigorous bleeding we will treat her conservatively for now. cc: Tremaine Gil MD
--- NOTE | 2017-01-27 15:09 | OPERATIVE NOTE ---
PROCEDURE DATE: 12/28/2016 PROCEDURES: 1. Esophagogastroduodenoscopy. 2. Attempted colonoscopy. PREOPERATIVE DIAGNOSIS: Severe microcytic anemia. POSTOPERATIVE DIAGNOSIS: Gastritis. No active bleeding. Colonoscopy canceled. DESCRIPTION OF PROCEDURE: After informed consent and adequate intravenous sedation by Anesthesia, the scope introduced through the esophagus stomach and duodenum. The patient has no signs of any bleeding. There is some gastric erythema. At this point, patient is turned around. The patient, however, appears to be fragile. Anesthesiologist was called in and it was determined that she had to be awakened and we should not proceed with colonoscopy this point. We will reschedule when she is ready. She has volume overload, renal disease and these things need to be further tuned up and anemia improved with possible transfusions and general improvement of overall status before we do the colonoscopy. cc: Tremaine Gil MD
== END 2016-12-29 13:50 | disposition home or self-care (01) ==
LOC: ED 10:45 → EDIPHOLD 10:45 → 4N 15:18
PROVIDERS: ATTEND Internal Medicine

== ENCOUNTER 2017-03-13 01:37 | Inpatient (IN) ==
[2017-03-06 12:37] LABS: URINE MICRO REVIEW NEEDED? NO; URINE SOURCE CLEAN CATCH
[2017-03-06 12:40] LABS: BASO% 0.5 % (0.0-0.8); BILIRUBIN URINE NEGATIVE (NEGATIVE); BLOOD URINE TRACE (NEGATIVE); COLOR STRAW; EOS# 0.16 X1000 (0.0-0.7); EOS% 2.1 % (0.0-10.0); GLUCOSE URINE NEGATIVE (NEGATIVE); HEMATOCRIT 27.2 % (37.0-47.0); HEMOGLOBIN 8.4 g/dL (12.0-16.0); IMM GRAN# 0.02 X1000 (0.0-0.04); IMM GRAN% 0.3 % (0.0-0.5); LEUKOCYTES URINE NEGATIVE (NEGATIVE); LYMPH# 0.76 X1000 (1.2-3.4); LYMPH% 10.1 % (20.5-51.1); MANUAL DIFF NEEDED? YES; MCH 32.8 PG (27-31); MCHC 30.9 g/dL (33-37); MCV 106.3 FL (81-99); MONO# 0.51 X1000 (0.11-0.59); MONO% 6.8 % (1.7-9.3); NEUT% 80.2 % (42.2-75.2); NITRITE URINE NEGATIVE (NEGATIVE); PH URINE 7.5; PLT 239 X1000 (130-400); PROTEIN URINE 200 mg/dL (NEGATIVE); RBC 2.56 XMIL (4.2-5.4); SP GRAVITY URINE 1.002; TURBIDITY URINE CLEAR (CLEAR); UR EPITHELIAL CELLS <10 /HPF (<10); URINE BACTERIA 1+ /HPF; URINE RBC <10 /HPF (<10); URINE WBC <10 /HPF (<10); UROBILINOGEN URINE NORMAL (NORMAL)
[2017-03-06 12:49] LABS: INR 1.02; PROTIME 10.7 Seconds (9.2-11.7); PTT 28.5 Seconds (22.0-36.0)
[2017-03-06 12:54] LABS: BANDS 2 % (0-1); EOS 2 % (1-10); LYMPHS 12 % (21-51)
[2017-03-06 12:55] LABS: CALCIUM 9.1 mg/dL (8.8-10.2); POTASSIUM 4.2 mmol/L (3.5-5.1)
--- NOTE | 2017-03-06 14:01 | EKG Report ---
Test Performed on : 03/06/2017 12:02:04 PM Test Reason : [facility] Blood Pressure : / mmHG Vent. Rate : 080 BPM Atrial Rate : 080 BPM P-R Int : 160 ms QRS Dur : 156 ms QT Int : 434 ms P-R-T Axes : 041 156 034 degrees QTc Int : 500 ms Normal sinus rhythm. Indeterminate axis Right bundle branch block Possible Inferior infarct (cited on or before 13-JAN-2014) Abnormal ECG When compared with ECG of 26-DEC-2016 15:37, No significant change was found Confirmed by Demario Freitas MD ([id number]) on 03/06/2017 9:44:42 PM
[2017-03-13] MEDS ORDERED: FENTANYL ONE (08:09)
[2017-03-13] MEDS ORDERED: VERSED ONE (08:09)
[2017-03-13] MEDS ORDERED: PEPCID ONE (08:19)
[2017-03-13] MEDS ORDERED: REGLAN ONE (08:19)
[2017-03-13] MEDS ORDERED: COLACE ONE (08:19)
[2017-03-13] MEDS ORDERED: VANCOMYCIN 1 GM/NS 1 GM/250 ML IVPB ONE (08:20)
[2017-03-13] MEDS ORDERED: 1/2 NS 500 ML ONE (08:20)
[2017-03-13] MEDS ORDERED: LYRICA ONE (08:20)
[2017-03-13] MEDS ORDERED: CELEBREX ONE (08:20)
[2017-03-13] MEDS ORDERED: XYLOCAINE-MPF 2% ONE (09:32)
[2017-03-13] MEDS ORDERED: DIPRIVAN 1% ONE (09:32)
[2017-03-13] MEDS ORDERED: QUELICIN (DOSE) ONE (09:33)
[2017-03-13] MEDS ORDERED: MARCAINE 0.25% PF ONE (09:41)
[2017-03-13] MEDS ORDERED: DURAMORPH ONE (09:41)
[2017-03-13] MEDS ORDERED: TORADOL ONE (09:41)
[2017-03-13] MEDS ORDERED: VANCOMYCIN ONE (09:42)
[2017-03-13] MEDS ORDERED: SODIUM CHLORIDE 0.9% ONE (09:42)
[2017-03-13] MEDS ORDERED: CYKLOKAPRON 1,000 MG/NS 1,000 MG/100 ML IVPB ONE (09:42)
[2017-03-13] MEDS ORDERED: NEOSPORIN G.U. IRRIGANT ONE (09:43)
[2017-03-13] MEDS ORDERED: EXPAREL 1.3% ONE (09:43)
[2017-03-13] MEDS ORDERED: ZOFRAN ONE (10:49)
[2017-03-13] MEDS ORDERED: DECADRON ONE (10:49)
[2017-03-13] MEDS ORDERED: OFIRMEV 1000 MG/ISOTONIC SOLN 1,000 MG/100 ML BOTTLE ONE (10:49)
[2017-03-13 10:52] LABS: URINE MICRO REVIEW NEEDED? NO; URINE SOURCE CATH
[2017-03-13 10:55] LABS: BILIRUBIN URINE NEGATIVE (NEGATIVE); BLOOD URINE NEGATIVE (NEGATIVE); COLOR STRAW; GLUCOSE URINE NEGATIVE (NEGATIVE); LEUKOCYTES URINE NEGATIVE (NEGATIVE); NITRITE URINE NEGATIVE (NEGATIVE); PROTEIN URINE 200 mg/dL (NEGATIVE); SP GRAVITY URINE 1.005; TURBIDITY URINE CLEAR (CLEAR); UROBILINOGEN URINE NORMAL (NORMAL)
[2017-03-13 10:57] LABS: UR EPITHELIAL CELLS <10 /HPF (<10); URINE BACTERIA NEGATIVE /HPF; URINE RBC <10 /HPF (<10); URINE WBC <10 /HPF (<10)
[2017-03-13] MEDS ORDERED: NS 2,000 ML ONE (12:37)
[2017-03-13] MEDS ORDERED: HEPARIN ONE (12:37)
[2017-03-13] MEDS ORDERED: NS 1,000 ML ONE (12:53)
--- NOTE | 2017-03-13 12:57 | Diag Imaging Result Doc PS360 ---
KNEE 1-2 VIEWS-LEFT - 03/13/2017 INDICATION: post op tka TECHNIQUE: Two views COMPARISON: 07/04/2016 FINDINGS: There has been left total knee arthroplasty. Alignment is anatomic. No hardware fracture or loosening. IMPRESSION: No complication. Electronically signed by Norman Ortega 03/13/2017 12:55 PM
[2017-03-13] MEDS ORDERED: NS 1,000 ML IV SCH (13:00)
[2017-03-13] MEDS ORDERED: NS 2,000 ML MISC PRN (13:43)
[2017-03-13] MEDS ORDERED: PNEUMOVAX 23 IM ONE (14:00)
[2017-03-13] MEDS ORDERED: ZOFRAN PO PRN (14:00)
[2017-03-13] MEDS ORDERED: MILK OF MAGNESIA PO PRN (14:00)
[2017-03-13] MEDS ORDERED: OXY IR PO PRN (14:00)
[2017-03-13] MEDS ORDERED: ZOFRAN IV PRN (14:00)
--- NOTE | 2017-03-13 16:51 | CONSULTATION ---
DATE OF CONSULTATION: 03/13/2017 HISTORY OF PRESENT ILLNESS: She had left knee total knee arthroplasty elective surgery done. She has end-stage renal disease. She gets dialysis I believe 3 times a week. PAST MEDICAL HISTORY: 1. End-stage renal disease. Hemodialysis per Dr. Christine. 2. Hypothyroidism. 3. Chronic anemia. 4. Diabetes mellitus type 2. 5. Morbid obesity. 6. PICA. Patient eats about 24 ounces glass of ice of day at least at 1 point. 7. Hyperlipidemia. 8. Hypertension. 9. Peripheral neuropathy. 10. History of breast cancer. SURGICAL HISTORY: She has had a left mastectomy. Status post hysterectomy. Status post cholecystectomy. She has had a right and left AV shunt. Left reverse total shoulder arthroplasty. SOCIAL HISTORY: No tobacco. No alcohol. FAMILY HISTORY: Did not report any history of coronary artery disease or renal disease. Looking back at old history and physical, did not have any pertinent family history. REVIEW OF SYSTEMS: General: No history of weight gain or loss, fever or chills. She has had pain in that left knee for years from degenerative arthritis. Lungs: No respiratory complaints. Cardiovascular: No chest pain or tachy palpitation. GI/: No complaints of change in bowels, gross hematuria or dysuria. Musculoskeletal/Neurologic: No focal complaints. Endocrinologic/Hematologic: No history of recent trouble. PHYSICAL EXAMINATION: General: She is getting dialysis, awake and alert. Vital signs: Temperature 98 degrees, pulse 76, respirations 18, blood pressure 146/67. These are vital signs at around 8 o'clock this morning. HEENT: The pupils are equal, round. CVP less than 6 cm. Lungs: Clear in all lung garsia. Cardiovascular: Regular rhythm and rate without murmur or S3. Abdomen: Soft, nondistended, nontender. Extremities: Without clubbing, cyanosis, or edema. Left leg wrapped and elevated. Her weight is 230 pounds. Height is 5 feet 4 inches. LABORATORY: Reviewed from 03/06. White count 7530, hematocrit was 27, platelet count 239,000. Sodium 136, potassium 4.2, chloride 92, BUN 47, creatinine 5.8, calcium 9.1, ProTime 10.7, PTT was 28. Urinalysis unremarkable. IMAGING: Knee x-ray postoperative: There has been left total knee arthroplasty. Alignment anatomical. No hardware fracture or loosening. CURRENT MEDICATIONS: Tylenol 1000 mg p.o. q.6 hours, Norvasc 10 mg daily, Colace 100 mg b.i.d., Lasix 80 mg p.o. daily, Levemir 25 units subcutaneous daily, Synthroid 125 mcg daily, milk of magnesia as needed, morphine 2-6 mg IV q.2 hours p.r.n. pain, Prilosec 40 mg a day, Zofran as needed for nausea, OxyIR 5-10 mg q.3 hours p.r.n., Xarelto 10 mg p.o. daily, Renvela or sevelamer 2.4 g p.o. t.i.d., 0.5 normal saline at 83 mL/hour. She got a dose of vancomycin before surgery. ASSESSMENT AND PLAN: 1. Left total knee arthroplasty, doing well. To began physical therapy. 2. End-stage renal disease. Her volume status, electrolytes, acid-base appear appropriate. 3. Anemia of chronic disease. Hemoglobin is 8.4, hematocrit is 27, that was on 03/06. We will follow her hemoglobin and hematocrit. If we need to give her blood, we can give it during dialysis. She is undergoing dialysis today at the present time. 4. Diabetes mellitus type 2. We will follow pattern sugars and put her on a low sliding scale. 5. Morbid obesity. I encouraged her to continue a low carbohydrate diet. Pursue weight reduction. 6. Hypertension. Watch her blood pressure. 7. Peripheral neuropathy secondary to diabetes. Aware. 8. History of breast cancer. 9. History of hypothyroidism. Continue Synthroid. Appears euthyroid on examination. We will check her T4 and TSH while she is here. Also check a B12 and folate tomorrow. We will check a basic metabolic profile and magnesium and a CBC. Check her hemoglobin and hematocrit. I thank you for this consult. cc: Jacques Roman MD
[2017-03-13] MEDS ORDERED: MORPHINE ONE (16:52)
[2017-03-13] MEDS: MORPHINE IV PRN (16:54)
[2017-03-13] MEDS: 1/2 NS 1,000 ML IV SCH (17:35)
[2017-03-13] MEDS: TYLENOL PO SCH (17:36)
[2017-03-13] MEDS: RENVELA POWDER PACKET PO SCH (17:36)
--- NOTE | 2017-03-13 19:51 | CONSULTATION ---
DATE OF CONSULTATION: 03/13/2017 REASON FOR CONSULTATION: Assistance with management. No hospitalist consult has been placed. HISTORY OF PRESENT ILLNESS: Ms. Jiang is a 56-year-old, white female who is well known to us. She has multiple hospitalizations, her most recent being in November, but she has had multiple ER visits since then. These admissions have been centered around significant anemia. She never completed her gastrointestinal evaluation. She did require multiple transfusions and had heme- positive stool at the time. She has end-stage kidney disease secondary to diabetes. She also has a history of breast cancer, hypertension, hyperlipidemia, peripheral neuropathy. She receives dialysis every Saturday, Saturday, and Saturday. She was admitted for left total knee arthroplasty which was performed today by Dr. Mccabe. She has no chest pain, palpitation or shortness of breath. She does not complain of melena. No abdominal pain or other new complaints. Surgery was uneventful today and she had no hypotension during her procedure. Her pain is been managed with morphine and she did receive a single dose of Celebrex, Lyrica, Marcaine, Toradol. PAST MEDICAL HISTORY: As above. She also has hypothyroidism. HOME MEDICATIONS: Include amlodipine, insulin, omeprazole, levothyroxine, pregabalin, Tradjenta, hydrocodone, folate, furosemide, aspirin, FiberCon. ALLERGIES: Penicillin. SOCIAL HISTORY: She does not currently use alcohol or tobacco. Lives at home. FAMILY HISTORY/REVIEW OF SYSTEMS: Otherwise noncontributory. PHYSICAL EXAMINATION: Vital Signs: Blood pressure 146/67, heart rate 76, and afebrile. Generally: She is in no acute distress. Skin: Warm and dry. Conjunctivae are pink. Pupils are equal. Oropharynx is clear and moist. Neck is supple. Trachea is midline. Neck vein distention is not present. Heart: Regular with S4 gallop. Soft murmur. Lungs: Have equal breath sounds. No crackles or wheezes. Abdomen: Soft and nontender. Bowel sounds are present. Extremities: Have 2+ edema. No clubbing or cyanosis. Left leg is dressed. Neurologic Exam: Grossly nonfocal. LABORATORY DATA: Sodium 136, potassium 4.2, chloride 92, bicarbonate 28, BUN 47, creatinine 4.8, hemoglobin 8.4. IMPRESSION: 1. End-stage kidney disease. She is undergoing dialysis currently. We will plan to repeat treatment tomorrow. Goal of 4 L ultrafiltration today. 2. Anemia. Hemoglobin is low, but acceptable. We will recheck iron stores and dose with IV iron and erythropoietin if needed. 3. Hypertension in target. 4. Status post left total knee arthroplasty. Pain control is adequate. She has received vancomycin as perioperative treatment. No changes. cc: MD Jacques Pabon MD
[2017-03-13] MEDS ORDERED: VANCOMYCIN 1 GM/NS 1 GM/250 ML IVPB IV ONE (20:00)
[2017-03-13] MEDS: PERIDEX MT SCH (20:04)
[2017-03-13] MEDS: COLACE PO SCH (20:06)
[2017-03-13] MEDS: HUMULIN R SUBQ SCH (20:06)
--- NOTE | 2017-03-14 01:00 | OPERATIVE NOTE ---
PROCEDURE DATE: 03/13/2017 PREOPERATIVE DIAGNOSIS: Degenerative osteoarthritis of the left knee. POSTOPERATIVE DIAGNOSIS: Degenerative osteoarthritis of the left knee. PROCEDURE: Left total knee arthroplasty with DePuy Attune size 6 narrow posterior stabilized femur, size 5 tibial tray, 8 mm rotating platform tibial insert, and a 35 mm medialized anatomic patella. SURGEON: Wiflred Mccabe MD. TRAILER SECTIONS ASSEMBLER: ECHO Estrella. SECOND WATER RESTORATION TECHNICIAN: Alexis Hamlin RN. ANESTHESIA: Spinal. INTRAVENOUS FLUIDS: 500 mL lactated Ringer's. ESTIMATED BLOOD LOSS: 25 mL. TOURNIQUET TIME: 90 minutes at 350 mmHg. COMPLICATIONS: None. INDICATION: The patient is a 56-year-old female with a chronic history of worsening pain and discomfort over the left knee. She has continued with the pain and discomfort, despite appropriate nonoperative treatment. X-rays revealed degenerative arthritis. Recommendation to proceed with left total knee arthroplasty was offered. Risks and benefits of surgery were explained, including the risk of anesthesia, , bleeding, infection, failure to relieve pain, postoperative stiffness, nerve injury, blood clots, and other imponderables. All questions answered. The patient and family wished to proceed. DETAILS OF OPERATION: The patient was taken to the operating room and placed supine on the operating table. Once adequate anesthesia was obtained, the patient's left lower extremity was subsequently prepped and draped in the usual sterile fashion. Esmarch was used to exsanguinate the left lower extremity. The tourniquet was inflated to 350 mmHg. A standard anterior incision was made with a skin knife. Medial and lateral skin envelopes were developed. Standard medial parapatellar arthrotomy was then performed. Patella fat pad was excised. Retractors then placed. 1 cm anterior to the PCL insertion, a starting reamer was passed. Intramedullary guide with a distal femoral cutting block was pinned in position. Distal femoral cut was then performed. A sizing block measured a size 6. Corresponding pins were placed. Anterior, posterior, and chamfer cuts were then made. Attention then turned to the proximal tibia, where resection of the ACL and PCL was performed. Using the extramedullary guide, the proximal tibia cutting block was pinned in position. Had good alignment confirmed with the alignment augustus. The proximal tibia was then resected. The medial and lateral menisci were excised. A curved osteotome was used to remove the posterior osteophytes off the distal femur. A spacer block was placed, and a good soft tissue balance in both flexion and extension. A size 5 tibial tray appeared to be correct size. This was pinned in position. This was followed by a central reamer and a fin punch. After this had been performed, a box cutting guide was pinned in position on the distal femur, and a box cut was performed. Trial tibial femoral component was then placed, and 2 lug holes were drilled. A trial tibial insert was placed, and had good soft tissue balancing. Patella was everted and resected in standard fashion. A size 35 appeared to be correct size. Corresponding holes were drilled. A size 35 medialized anatomic patella appeared to be correct size. Trial component was placed and had good patellofemoral tracking. The trial components were then removed. Copious irrigation then performed with antibiotic pulsatile lavage. Vancomycin was mixed with cement on the back table. Sequential cementing was then performed, first with the tibial tray. Excess cement was removed with a Arrowsmith, followed by the femoral component, and excess cement was removed with a Arrowsmith. A trial tibial insert was placed in full extension. Axial loading was maintained while the cement cured. The patella was cemented in standard fashion. Patella clamp was placed. While the cement was curing, Exparel was placed in deep soft tissue, as well as subcutaneous tissue. After the cement had cured, peripheral cement was removed with a small osteotome. The 8 mm rotating platform tibial insert appeared to be correct size. The trial component was removed. Exparel was placed in the deep posterior capsule. The patient's wound was copiously irrigated with antibiotic pulsatile lavage. An 8 mm rotating platform tibial insert was then placed. The knee was then carried through the range of motion. Had good range of motion, good soft tissue balancing, and good patellofemoral tracking. A 1/8 Hemovac drain was placed, and was not sewn in. Copious irrigation was then performed once again with antibiotic pulsatile lavage. Number 1 Vicryl was used to repair the arthrotomy, followed by 2-0 Vicryl to repair the subcutaneous tissue, and skin aleyda. Adaptic, sterile 4 x 4's, Webril, and an Scooby wrap was applied to the left lower extremity. Patient tolerated the procedure well, with no complications. Transferred to the recovery room in stable condition. cc: MD Jacques Garcia MD
[2017-03-14] MEDS: TYLENOL PO SCH ×5 (04:34→22:22)
[2017-03-14] MEDS: XARELTO PO SCH (05:24)
[2017-03-14] MEDS: PRILOSEC PO SCH ×2 (05:25→07:47)
[2017-03-14] MEDS: SYNTHROID PO SCH ×2 (05:25→07:48)
[2017-03-14 06:20] LABS: BASO% 0.5 % (0.0-0.8); EOS# 0.14 X1000 (0.0-0.7); EOS% 1.4 % (0.0-10.0); HEMATOCRIT 17.4 % (37.0-47.0); HEMOGLOBIN 5.4 g/dL (12.0-16.0); IMM GRAN# 0.03 X1000 (0.0-0.04); IMM GRAN% 0.3 % (0.0-0.5); LYMPH# 0.78 X1000 (1.2-3.4); LYMPH% 7.9 % (20.5-51.1); MANUAL DIFF NEEDED? YES; MCH 32.9 PG (27-31); MCV 106.1 FL (81-99); MONO# 0.91 X1000 (0.11-0.59); MONO% 9.3 % (1.7-9.3); MPV 11.2 FL (7.4-10.4); NEUT% 80.6 % (42.2-75.2); PLT 169 X1000 (130-400); RBC 1.64 XMIL (4.2-5.4)
[2017-03-14 06:30] LABS: CALCIUM 8.3 mg/dL (8.8-10.2); POTASSIUM 4.8 mmol/L (3.5-5.1)
--- NOTE | 2017-03-14 06:54 | PROGRESS NOTE ---
DATE: 03/14/2017 SUBJECTIVE: The patient is a pleasant 56-year-old female, who is 1 day status post left total knee arthroplasty. Patient is currently resting comfortably this morning. She did undergo dialysis after surgery yesterday. OBJECTIVE: On physical exam, patient's left lower extremity dressing is intact. Her calf is soft. She has active dorsiflexion and plantar flexion. She is otherwise neurovascularly intact. Her hemoglobin and hematocrit are pending. IMPRESSION: Postoperative day #1, status post left total knee arthroplasty. PLAN: At this point, we will change her dressing, discontinue her drain, and Hep-Lock her IV. We will mobilize with physical therapy. Will consult Soap Drier Tender for discharge planning for inpatient rehabilitation. cc: MD Jacques Garcia MD
[2017-03-14] MEDS ORDERED: SYNTHROID PO SCH (07:00)
[2017-03-14] MEDS ORDERED: PRILOSEC PO SCH (07:00)
[2017-03-14 07:06] LABS: HEMOGLOBIN A1C 4.7 % (4.8-6.0)
[2017-03-14] MEDS: HUMULIN R SUBQ SCH ×4 (07:08→20:32)
[2017-03-14] MEDS ORDERED: HEPARIN IV PRN (07:19)
[2017-03-14] MEDS ORDERED: NS 2,000 ML MISC PRN (07:19)
[2017-03-14] MEDS ORDERED: TIGHT: 0.2 ML/HR MISC PRN (07:19)
[2017-03-14 07:21] LABS: FREE T4 1.12 ng/dL (0.93-1.70)
[2017-03-14] MEDS: RENVELA POWDER PACKET PO SCH ×3 (08:12→16:51)
[2017-03-14] MEDS: NORVASC PO SCH ×2 (08:12→20:39)
[2017-03-14] MEDS: LYRICA PO SCH ×2 (08:12→20:39)
[2017-03-14] MEDS: PERIDEX MT SCH ×3 (08:12→20:44)
[2017-03-14] MEDS: FIBERCON PO SCH (08:12)
[2017-03-14] MEDS: COLACE PO SCH ×2 (08:12→20:39)
[2017-03-14] MEDS: TRADJENTA PO SCH (08:12)
[2017-03-14] MEDS: LASIX PO SCH (08:13)
[2017-03-14] MEDS: ASPIRIN PO SCH (08:13)
[2017-03-14] MEDS: LEVEMIR SUBQ SCH ×2 (08:13→20:39)
[2017-03-14] MEDS ORDERED: LASIX PO SCH (09:00)
[2017-03-14] MEDS ORDERED: NS 2,000 ML ONE (09:06)
[2017-03-14] MEDS ORDERED: HEPARIN ONE (09:06)
--- NOTE | 2017-03-14 09:42 | PROGRESS NOTE ---
DATE: 03/14/2017 She had a total knee arthroplasty yesterday. Has had a good night. She had dialysis yesterday. I think the plan is to have dialysis today and also get a unit of blood for her chronic anemia and postop blood-loss anemia.Vital signs: Temperature 98.3 degrees, pulse 76, respirations 18, blood pressure 131/63. HEENT: Pupils are equal, round. Lungs: Are clear in all lung garsia. Cardiovascular: Regular rhythm and rate without murmur or S3. Abdomen: Soft. Skin: Is warm and dry. Left leg, both with good warm feet. Pedal pulses 2+ and symmetrical. Urine output 2100 mL. LAB: White count 9820, hematocrit 17 with a hemoglobin of 5.4, platelet count 169,000. Chemistries: Sodium 134, potassium 4.8, chloride 92, BUN 35, creatinine 4.3, vitamin B12 1000. Folate was 30. T4 and TSH look okay. ASSESSMENT AND PLAN: 1. Postop day 1 left total knee arthroplasty. 2. End-stage renal disease. Volume status looks good but is getting some IV fluid. I am going to give her some blood as well today so dialysis today and will receive a unit of blood. Electrolytes look good. 3. Diabetes mellitus type 2. Blood sugars controlled. 4. Chronic anemia, acute on chronic with acute blood loss anemia. Received a unit of blood today. 5. Hypertension. Blood pressure control. 6. Peripheral neuropathy. Aware. Review of orders: I do not see any changes. cc: Jacques Roman MD
[2017-03-14] MEDS: NEPHRO-VITE PO SCH (13:00)
[2017-03-14] MEDS: 1/2 NS 1,000 ML IV SCH ×2 (13:05→13:50)
[2017-03-14] MEDS: OXY IR PO PRN ×3 (13:48→22:22)
--- NOTE | 2017-03-14 17:03 | PROGRESS NOTE ---
DATE: 03/14/2017 SUBJECTIVE: Patient is resting in a chair. She has undergone a knee arthroplasty. She received 2 units of packed red blood cells today. OBJECTIVE: Vital Signs: Temperature 97.5 degrees, pulse 72, respiratory rate 18, blood pressure 107/57. Intake 768 mL. Output 2.7 L. General: Middle-aged female, resting in a chair, no acute distress. HEENT: Normocephalic, atraumatic. Oral mucosa moist. ZAC. Conjunctivae pink. Neck: Supple. Trachea midline. No JVD. Cardiovascular: Regular rate and rhythm. No murmur. Pulmonary: Equal excursion. Clear bilaterally. No increased work of breathing. Abdomen: Soft. Positive bowel sounds. : Not inspected. Extremities: There is 1+ to 2+ pretibial edema. Her left foot is elevated. No clubbing or cyanosis. Integumentary: Skin is warm and dry. LAB DATA: WBC of 9.8, hemoglobin 5.4. Sodium 134, potassium 4.8, CO2 27, creatinine 4.3. ASSESSMENT AND PLAN: 1. End-stage renal disease management. Dialysis is Saturday, Saturday, Saturday schedule. Plan to dialyze her in the morning. We will check her labs in the morning for her appropriate dialysis bath. 2. Anemia, likely secondary to blood loss from surgery. The patient does have some chronic blood- loss anemia that we have been trying to get her to have worked up as an outpatient with GI. This has not occurred yet. Nonetheless, we will go ahead and check her labs in the morning. If her hemoglobin is not improved appropriately we will go ahead and transfuse while on dialysis tomorrow. 3. Electrolytes, acid-base balance. These are acceptable. 4. Hypertension, controlled. 5. Fluid volume. She is euvolemic. Dictated by RUKHSANA Elena for Trav Christine MD Patient seen, data reviewed, discussed with David Khoury on 03/15/17. I agree with the above assessment and plan of care. cc: MD Jacques Pabon MD [facility]
[2017-03-15] MEDS: OXY IR PO PRN ×4 (02:19→17:20)
[2017-03-15] MEDS: 1/2 NS 1,000 ML IV SCH ×2 (03:42→17:08)
[2017-03-15] MEDS: TYLENOL PO SCH ×4 (04:10→22:19)
[2017-03-15 06:12] LABS: HEMATOCRIT 21.4 % (37.0-47.0); HEMOGLOBIN 6.6 g/dL (12.0-16.0)
[2017-03-15] MEDS: HUMULIN R SUBQ SCH ×4 (06:15→22:15)
[2017-03-15] MEDS: PRILOSEC PO SCH (06:25)
[2017-03-15] MEDS: XARELTO PO SCH (06:25)
[2017-03-15] MEDS: SYNTHROID PO SCH (06:25)
[2017-03-15] MEDS ORDERED: HEPARIN IV PRN (06:50)
[2017-03-15] MEDS ORDERED: NS 2,000 ML MISC PRN (06:50)
[2017-03-15] MEDS ORDERED: TIGHT: 0.2 ML/HR MISC PRN (06:50)
[2017-03-15] MEDS ORDERED: INSULIN PEN NEEDLES ONE (07:37)
[2017-03-15] MEDS ORDERED: NS 2,000 ML ONE ×2 (08:41→12:12)
[2017-03-15] MEDS ORDERED: HEPARIN ONE ×2 (08:41→12:12)
--- NOTE | 2017-03-15 09:18 | PROGRESS NOTE ---
DATE: 03/15/2017 SUBJECTIVE: She is sitting up eating her breakfast. No shortness of breath, nausea, vomiting, etc. OBJECTIVE: Vital signs: Blood pressure is 173/63, heart rate 83, respirations 18, afebrile. General: She is in no acute distress. Skin: Somewhat pale but dry. Conjunctivae are pink. Neck veins are not visible in the erect position. Heart is regular without gallops or murmurs. Lungs have equal breath sounds. No crackles or wheezes. Abdomen: Soft, nontender. Bowel sounds present. Extremities: 2+ edema. No clubbing or cyanosis. IMPRESSION: 1. End stage kidney disease. She will have her routine hemodialysis today with goal of achieving her outpatient dry weight. 2. Anemia. She will require 2 additional units of packed red blood cells today. 3. Electrolytes/acid base. No new data. 4. Hypertension. Blood pressure has been well controlled, the most recent reading notwithstanding. cc: MD Yusuf Pabon MD
--- NOTE | 2017-03-15 09:19 | PROGRESS NOTE ---
DATE: 03/15/2017 SUBJECTIVE: The patient is a pleasant 56-year-old female who is 2 days status post left total knee arthroplasty. The patient did receive 2 units of packed red blood cells yesterday and also underwent dialysis. She currently is resting comfortably this morning. OBJECTIVE: On physical exam of patient's left lower extremity, her wound looks good. There are no signs or symptoms of infection. Her calf is soft. She has active dorsiflexion and plantar flexion. She is neurovascularly distally. LABORATORY DATA: Labs are pending this morning. IMPRESSION: 1. Postoperative day #2, status post left total knee arthroplasty. 2. Acute blood loss anemia with history of chronic anemia. 3. End-stage renal disease. PLAN: At this point, will recheck the patient's lab work this morning. Will progress with physical therapy and social. The patient has been consulted for discharge planning for inpatient rehabilitation. We would consider this discharging to rehab tomorrow if she is medically cleared. She is scheduled to undergo dialysis today cc: MD Yusuf Garcia MD
[2017-03-15] MEDS: RENVELA POWDER PACKET PO SCH ×3 (10:14→17:05)
--- NOTE | 2017-03-15 11:22 | PROGRESS NOTE ---
DATE: 03/15/2017 SUBJECTIVE: This patient states that she is feeling better but she is feeling weak. She is complaining of left knee discomfort secondary to the surgery but she is stable. No acute events overnight. Her hemoglobin is still at 6.6, and she will receive 2 PRBCs. OBJECTIVE: Vital Signs: Temperature 98.5 degrees, pulse 80, respiratory rate 18, blood pressure 173/63, oxygen saturation 93 on 2 L of nasal cannula. HEENT: Head is normocephalic. No trauma. PERRLA. Neck: Supple. JVD no masses. Central trachea. Chest: Clear to auscultation. No wheezing. No rales. Abdomen: Soft, nontender, nondistended. No hepatosplenomegaly. Extremities: Left knee wound secondary to surgery. Pulses are present symmetrically 2+. Neurological: The patient is alert and oriented x3. No focal neurological deficits. Skin: Pale. LABORATORY: Hemoglobin 6.6, hematocrit 21.4, glucose 158. ASSESSMENT AND PLAN: 1. Postoperative day #2 of left total knee arthroplasty. 2. End-stage renal disease. Continue with hemodialysis. 3. Chronic anemia with acute blood loss anemia. She will receive 2 units of PRBCs today during dialysis. 4. Type 2 diabetes. The blood sugar is well controlled. 5. Hypertension. Continue with the same management. 6. Peripheral neuropathy. Not aware. No changes. Hopefully during this weekend this patient will be discharged to a rehab center. community organization worker has been notified and she is working on this. This patient will get dialysis today and she will receive also 2 units of PRBCs. cc: Yusuf Baker MD
[2017-03-15] MEDS: ASPIRIN PO SCH (12:51)
[2017-03-15] MEDS: NEPHRO-VITE PO SCH (12:53)
[2017-03-15] MEDS: TRADJENTA PO SCH (12:53)
[2017-03-15] MEDS: FIBERCON PO SCH (12:54)
[2017-03-15] MEDS: PERIDEX MT SCH ×2 (12:54→22:15)
[2017-03-15] MEDS ORDERED: ZOFRAN ONE (13:41)
[2017-03-15] MEDS: LYRICA PO SCH ×2 (17:09→22:14)
[2017-03-15] MEDS: NORVASC PO SCH ×2 (17:09→22:14)
[2017-03-15] MEDS: LEVEMIR SUBQ SCH ×2 (17:10→22:15)
[2017-03-15] MEDS: COLACE PO SCH ×2 (17:10→22:14)
[2017-03-15] MEDS: LASIX PO SCH (17:11)
[2017-03-15] MEDS: MORPHINE IV PRN (19:12)
[2017-03-15] MEDS ORDERED: SEROQUEL PO SCH (22:03)
[2017-03-16] MEDS: 1/2 NS 1,000 ML IV SCH (03:16)
[2017-03-16] MEDS: TYLENOL PO SCH ×4 (04:32→23:01)
[2017-03-16] MEDS: HUMULIN R SUBQ SCH ×4 (06:07→23:02)
[2017-03-16] MEDS: PRILOSEC PO SCH (06:14)
[2017-03-16] MEDS: XARELTO PO SCH (06:14)
[2017-03-16] MEDS: SYNTHROID PO SCH (06:14)
[2017-03-16 07:13] LABS: HEMATOCRIT 24.6 % (37.0-47.0); HEMOGLOBIN 7.7 g/dL (12.0-16.0)
[2017-03-16 07:38] LABS: CALCIUM 8.3 mg/dL (8.8-10.2); POTASSIUM 4.7 mmol/L (3.5-5.1)
[2017-03-16] MEDS: ASPIRIN PO SCH ×2 (10:53→11:01)
[2017-03-16] MEDS: LEVEMIR SUBQ SCH ×2 (10:53→23:01)
[2017-03-16] MEDS: TRADJENTA PO SCH (10:53)
[2017-03-16] MEDS: LYRICA PO SCH ×2 (10:53→23:01)
[2017-03-16] MEDS: NEPHRO-VITE PO SCH ×2 (10:53→11:02)
[2017-03-16] MEDS: LASIX PO SCH (10:53)
[2017-03-16] MEDS: COLACE PO SCH ×3 (10:54→23:00)
[2017-03-16] MEDS: FIBERCON PO SCH ×2 (10:54→11:02)
[2017-03-16] MEDS: NORVASC PO SCH ×2 (10:54→23:01)
[2017-03-16] MEDS: PERIDEX MT SCH ×2 (10:54→23:00)
[2017-03-16] MEDS: RENVELA POWDER PACKET PO SCH ×3 (10:54→17:59)
[2017-03-16] MEDS ORDERED: NS 500 ML ONE (12:55)
--- NOTE | 2017-03-16 13:48 | PROGRESS NOTE ---
DATE: 03/16/2017 SUBJECTIVE: Patient is a pleasant 56-year-old female who is 3 days status post left total knee arthroplasty. She is currently resting comfortably. She did undergo dialysis yesterday. OBJECTIVE: On physical exam patient's left lower extremity her wound looks good. There is no signs or symptoms of infection. Calf is soft. She has active dorsiflexion, plantar flexion. She is neurovascular intact distally. LABORATORY DATA: Her hemoglobin is 7.7, hematocrit is 24.6. IMPRESSION: 1. Postop day #3 status post left total knee arthroplasty. 2. End-stage renal disease. 3. Chronic anemia with acute blood loss anemia treated with transfusion. PLAN: At this point patient will continue with physical therapy. Social service been consulted for discharge planning for inpatient rehabilitation. cc: MD Yusuf Garcia MD
--- NOTE | 2017-03-16 14:55 | PROGRESS NOTE ---
DATE: 03/16/2017 SUBJECTIVE: She has been sleeping all morning. Her exam was performed at noon. She is a little confused today, asking what day it is. Otherwise, no specific complaints. No bleeding. No bowel movement. OBJECTIVE: Vital Signs: Blood pressure 137/57, heart rate 77, respirations 14, afebrile. General: She is in no acute distress. Skin: Warm and dry. Conjunctivae are pink. Neck: Neck veins are not visible. Heart: Regular. Lungs: Equal without crackles. Abdomen: Obese and soft. Bowel sounds are present. Extremities: Have 2+ edema. No clubbing or cyanosis. LABORATORY DATA: Sodium 137, potassium 4.7, chloride 98, bicarbonate 27, BUN 31, creatinine 4.3, hemoglobin 7.7. IMPRESSION: 1. Anemia. Her hemoglobin has corrected very slowly. She has had 4 units of blood and her hemoglobin has improved from 5.4 to 7.7. I will keep her and give 1 more unit of packed red blood cells today. Given her mental state, it probably makes sense to observe her over the weekend. 2. Volume status acceptable. 3. Electrolytes in target. 4. End-stage renal disease. 5. Schedule dialysis on Saturday. cc: MD Yusuf Pabon MD
--- NOTE | 2017-03-16 15:23 | PROGRESS NOTE ---
DATE: 03/16/2017 SUBJECTIVE: When I evaluated this patient she was sleepy, but arousable, and she was completely alert and oriented x3. Her sister was at the bedside, and she was able to recognize her. It looks like her dose of Seroquel was recently changed. I do believe it is too much, so I will decrease the dose from 200 to 100 daily during the night. Her hemoglobin improved after transfusion from 6.6 to 7.7. We will continue to monitor. PHYSICAL EXAMINATION: Vital Signs: Temperature 98.1 degrees, pulse 77, respiratory rate 14, blood pressure 137/57, oxygen saturation 100% on 2 L of nasal cannula. HEENT: Head normocephalic. No trauma. PERRLA. Neck: Supple. No JVD. No masses. Central trachea. Chest: Clear to auscultation. No wheezing. No rales. Cardiovascular: RRR. No murmurs. Abdomen: Soft, nontender, nondistended. No hepatosplenomegaly. Extremities: No edema. She has a left wound at the level of the knee that looks clean, dry and intact. Mild swelling. Neurological examination: The patient is sleepy, but arousable. Oriented x3. She is following commands and moving all 4 extremities. LABORATORY: Hemoglobin 7.7, hematocrit 24.6. Sodium 137, potassium 4.7, chloride 98, bicarbonate 27, BUN 31, creatinine 4.3, glucose 128, calcium 8.3. ASSESSMENT AND PLAN: 1. Postoperative day #3 of left total knee arthroplasty. Aware. 2. End-stage renal disease. Continue with hemodialysis as scheduled. 3. Chronic anemia with acute blood loss anemia. She received already 2 units of packed red blood cells yesterday and the hemoglobin improved from 6.6 to 7.7. 4. Type 2 diabetes. Blood sugar is well controlled. 5. Hypertension. Continue with the same management. 6. Peripheral neuropathy. Aware. No changes. 7. Mild altered mental status in the morning. At this moment she is sleepy, but her dose of Seroquel has been recently changed, so I do believe it is too much for her. I will decrease the dose to 100. Overall this patient is doing fine. Hopefully she can be discharged very soon to a rehab center. She will need to continue with anticoagulation with Xarelto 10 mg p.o. daily for at least 9 more days. She has end-stage renal disease and anticoagulation in these kind of patients is not well defined, but she needs to be anticoagulated and start her physical activity. cc: Yusuf Baker MD
[2017-03-16] MEDS: OXY IR PO PRN (21:25)
[2017-03-16] MEDS: SEROQUEL PO SCH (23:01)
[2017-03-17 06:14] LABS: HEMATOCRIT 27.7 % (37.0-47.0); HEMOGLOBIN 8.5 g/dL (12.0-16.0)
[2017-03-17] MEDS: HUMULIN R SUBQ SCH ×3 (06:17→18:26)
[2017-03-17] MEDS: TYLENOL PO SCH ×3 (06:23→18:35)
[2017-03-17] MEDS: PRILOSEC PO SCH (06:23)
[2017-03-17] MEDS: XARELTO PO SCH (06:24)
[2017-03-17] MEDS: SYNTHROID PO SCH (06:24)
[2017-03-17 06:54] LABS: CALCIUM 8.4 mg/dL (8.8-10.2); POTASSIUM 5.7 mmol/L (3.5-5.1)
[2017-03-17] MEDS ORDERED: ALBUTEROL 0.5% INH CONC FOR HYPERKALEMIA INH ONE (08:00)
[2017-03-17] MEDS: LYRICA PO SCH (08:33)
[2017-03-17] MEDS: LASIX PO SCH (08:33)
[2017-03-17] MEDS: PERIDEX MT SCH (08:33)
[2017-03-17] MEDS: COLACE PO SCH (08:33)
[2017-03-17] MEDS: NORVASC PO SCH (08:33)
[2017-03-17] MEDS: ASPIRIN PO SCH (08:33)
[2017-03-17] MEDS: LEVEMIR SUBQ SCH (08:34)
[2017-03-17] MEDS: NEPHRO-VITE PO SCH (08:34)
[2017-03-17] MEDS: RENVELA POWDER PACKET PO SCH ×3 (08:34→18:35)
[2017-03-17] MEDS: TRADJENTA PO SCH (09:04)
[2017-03-17] MEDS: FIBERCON PO SCH (09:04)
[2017-03-17] MEDS ORDERED: VELTASSA PO ONE (12:00)
--- NOTE | 2017-03-17 13:46 | PROGRESS NOTE ---
DATE: 03/17/2017 SUBJECTIVE: This patient looks more alert and oriented today. Yesterday she was more sleepy and confused but today she looks more alert. She is able to recognize family members at the bedside. She is oriented x3. I have decreased the dose of Seroquel from 200 to 100 during the night and it looks like it is much better. Her hemoglobin has been stable after 4 units of PRBCs. OBJECTIVE: Vital Signs: Temperature 98.9 degrees, pulse 94, respiratory rate 16, blood pressure 123/62, oxygen saturation 96 on room air. HEENT: Head normocephalic. No trauma. PERRLA. Neck: Supple. No JVD. No masses. Central trachea. Chest: Clear to auscultation. No wheezing. No rales. Cardiovascular: RRR. No murmurs. Abdomen: Soft, nontender, nondistended. No hepatosplenomegaly. Extremities: No edema. She has left wound at the level of the knee that looks clean, dry and intact. Mild swelling. Neurological: The patient is alert, oriented x3 and as per the family at the bedside, she has been somehow confused on and off but she is able to move all 4 extremities. LABORATORY: Hemoglobin 8.5, hematocrit 27.7. Sodium 135, potassium 5.7, chloride 98, bicarbonate 25, BUN 49, creatinine 5.9, glucose 104, calcium 8.4. ASSESSMENT AND PLAN: 1. Postoperative day #3 of left total knee arthroplasty, aware. 2. End-stage renal disease. Continue with hemodialysis as scheduled. 3. Chronic anemia with acute blood loss anemia. She received already 4 units of PRBCs and the hemoglobin today is 8.5. We will continue to monitor stable. 4. Type 2 diabetes. Blood sugar is well controlled. 5. Hypertension. Continue with the same management. 6. Peripheral neuropathy. Aware. 7. Mild confusion yesterday, likely related to her dose of Seroquel which I have decreased to 100 at bedtime. Will continue with the same management for now. She looks better today. Overall, this patient is doing fine. Hopefully she can be discharged very soon to a rehab center. She will need to continue with anticoagulation with Xarelto 10 mg p.o. daily for at least 8 more days. She has end-stage renal disease and anticoagulation in this kind of patient is not well defined but she needs to be anticoagulated to start her physical therapy. cc: Yusuf Baker MD
[2017-03-18] MEDS: SEROQUEL PO SCH (02:13)
[2017-03-18] MEDS: HUMULIN R SUBQ SCH ×5 (02:13→22:12)
[2017-03-18] MEDS: COLACE PO SCH ×3 (02:13→21:20)
[2017-03-18] MEDS: TYLENOL PO SCH ×3 (02:14→13:23)
[2017-03-18] MEDS: LYRICA PO SCH (02:14)
[2017-03-18] MEDS: NORVASC PO SCH ×2 (02:14→08:38)
[2017-03-18] MEDS: PERIDEX MT SCH ×4 (02:14→22:09)
[2017-03-18] MEDS: LEVEMIR SUBQ SCH ×2 (02:15→08:39)
[2017-03-18] MEDS: SYNTHROID PO SCH (06:17)
[2017-03-18] MEDS: XARELTO PO SCH (06:17)
[2017-03-18] MEDS: PRILOSEC PO SCH (06:17)
[2017-03-18 06:24] LABS: BASO% 0.2 % (0.0-0.8); EOS# 0.18 X1000 (0.0-0.7); EOS% 1.4 % (0.0-10.0); HEMATOCRIT 27.8 % (37.0-47.0); HEMOGLOBIN 8.7 g/dL (12.0-16.0); IMM GRAN# 0.05 X1000 (0.0-0.04); IMM GRAN% 0.4 % (0.0-0.5); LYMPH# 0.56 X1000 (1.2-3.4); LYMPH% 4.3 % (20.5-51.1); MANUAL DIFF NEEDED? YES; MCH 31.3 PG (27-31); MCHC 31.3 g/dL (33-37); MONO# 1.02 X1000 (0.11-0.59); MONO% 7.8 % (1.7-9.3); MPV 10.4 FL (7.4-10.4); NEUT% 85.9 % (42.2-75.2); PLT 260 X1000 (130-400); RBC 2.78 XMIL (4.2-5.4)
[2017-03-18 06:37] LABS: CALCIUM 9.4 mg/dL (8.8-10.2)
[2017-03-18] MEDS ORDERED: TIGHT: 0.2 ML/HR MISC PRN (06:49)
[2017-03-18] MEDS ORDERED: HEPARIN IV PRN (06:49)
[2017-03-18] MEDS ORDERED: NS 2,000 ML MISC PRN (06:49)
--- NOTE | 2017-03-18 07:00 | PROGRESS NOTE ---
DATE: 03/18/2017 SUBJECTIVE: The patient is a 56-year-old female who is 5 days status post left total knee arthroplasty. She is currently resting comfortably. She is scheduled for dialysis today. OBJECTIVE: On physical exam, the patient's left lower extremity, the wound looks good. There are no signs of infection. Her calf is soft. She is neurovascularly intact distally. She has active dorsiflexion and plantar flexion. LABORATORY DATA: Her hemoglobin is 8.7, hematocrit 27.8. IMPRESSION: Postoperative day number 5, status post left total knee arthroplasty. PLAN: At this point, the patient will undergo dialysis today. We will plan on discharging to rehab once okay with Dr. Christine. cc: MD Shona Garcia MD
[2017-03-18 07:15] LABS: BANDS 6 % (0-1); LYMPHS 8 % (21-51)
[2017-03-18 07:41] LABS: POTASSIUM 5.9 mmol/L (3.5-5.1)
[2017-03-18] MEDS: NEPHRO-VITE PO SCH (08:38)
[2017-03-18] MEDS: TRADJENTA PO SCH (08:38)
[2017-03-18] MEDS: FIBERCON PO SCH (08:38)
[2017-03-18] MEDS: LASIX PO SCH (08:38)
[2017-03-18] MEDS: ASPIRIN PO SCH (08:38)
[2017-03-18] MEDS: RENVELA POWDER PACKET PO SCH ×3 (08:38→17:26)
[2017-03-18] MEDS ORDERED: HEPARIN ONE (08:58)
[2017-03-18] MEDS ORDERED: NS 2,000 ML ONE (08:58)
--- NOTE | 2017-03-18 11:40 | PROGRESS NOTE ---
DATE: 03/18/2017 DATE/TIME SEEN: 03/18/2017 at 07:55. SUBJECTIVE: Ms. Jiang is resting quietly in bed. Head of the bed is slightly elevated. She is mostly nonverbal today. She does have some tremors noted to her upper extremities, neck and head area. She is unable to follow most commands. OBJECTIVE/PHYSICAL EXAMINATION: Vital Signs: Her most recent vital signs: Last temperature 100.4 degrees, blood pressure 145/60, heart rate 89, respirations are 17. She remains on 2 L nasal cannula. Last recorded saturation is 99%. She has had 1400 in. She has had 0 recorded out, with need for dialysis today. She remains in a positive fluid volume for the last 48 hours. General Appearance: This is a 56-year-old white female. She appears chronically ill. She is actually in no acute distress. Skin: Warm and dry. Head of the bed is elevated. HEENT: Normocephalic, atraumatic. Conjunctiva is pale. She has ZAC. Mucous membranes are dry. Neck: Supple. Trachea midline. No JVD. Cardiovascular: She is regular rate and rhythm. She has a soft systolic murmur noted. Chest: Lungs are clear to auscultation anterior. Equal excursion on room air. Abdomen: Large, round, soft, nontender. Positive bowel sounds. Extremities: She has a fistula to the left upper arm. This remains intact with good thrill. Lower extremities have 2+ lower extremity edema. No clubbing or cyanosis. Neurological: The patient is positive for asterixis bilaterally to the upper extremities, head and chest neck area. LABS: Sodium 136, potassium 5.9, chloride 95, CO2 23, BUN 67, creatinine 7.7, glucose 107. Her calcium is 9.4, anion gap of 18. Her white count 13.09, hemoglobin 8.7, hematocrit 27.8, platelet count of 260,000. IMPRESSION: 1. The patient is positive for asterixis bilaterally to the upper extremities, head and chest neck area. Patient has been on Lyrica and Seroquel. We will currently hold these at this time. She does remain on OxyIR and morphine, though she has not received anything in the last 14-16 hours. Patient is to dialyze today, which will assist and possible toxic removal, causing her asterixis. We will re-evaluate in the a.m. 2. Electrolytes. Patient has mild hyponatremia with hyperkalemia. Again, with correction on dialysis. 3. Acidosis. This does remain stable. 4. Anemia. Patient has received 4 units of packed red blood cells during her hospital stay. Again, no indications for intervention at this time. 5. Arthroplasty. This is being followed by Orthopedics. No indications for further intervention. 6. Fluid volume. This is acceptable at this time. I would like to thank you for allowing us to follow with this patient. Dictated by RUKHSANA Bone for Trav Christine MD Patient seen, data reviewed, discussed with Austin Ferraro on 03/18/17. I agree with the above assessment and plan of care. cc: RUKHSANA Bone MD Katherine Takundwa, MD [facility]
[2017-03-18 13:06] LABS: ALBUMIN 3.7 g/dL (3.5-5.0); ALKALINE PHOSPHATASE 83 U/L (32-104); DIRECT BILIRUBIN < 0.20 mg/dL (0.00-0.20); GOT 33 U/L (10-30); GPT 13 U/L (10-36); TOTAL BILIRUBIN 0.31 mg/dL (0.20-1.00); TOTAL PROTEIN 7.6 g/dL (6.3-8.3)
[2017-03-18] MEDS ORDERED: BENADRYL IV ONE (14:26)
[2017-03-18] MEDS ORDERED: VANCOMYCIN 1 GM/NS 1 GM/250 ML IVPB IV ONE (15:00)
[2017-03-18 15:04] LABS: ALLEN TEST YES; BE 6.7 mmoll (-3.0-3.0); BLOOD TYPE ARTERIAL; DRAW SITE R RADIAL; METHB 1.1 % (0.0-1.5); O2(CT) 9.6 mL/dL (15.0-23.0); SAMPLE BLOOD; THB 8.2 g/dL (11.5-17.4)
[2017-03-18 15:13] LABS: pH(98.6) 7.37 (7.35-7.45)
[2017-03-18 15:14] LABS: PCO2(98.6) 57 mmHg (35-45); PO2(98.6) 46 mmHg (60-100)
[2017-03-18 15:15] LABS: MODALITY ROOM AIR
--- NOTE | 2017-03-18 15:45 | Diag Imaging Result Doc PS360 ---
EXAM: CT HEAD W/O CONTRAST TECHNIQUE: Dose reduction protocol was used. INDICATION: encephalopathy COMPARISON: 12/12/2014 FINDINGS: There is prominent diffuse brain atrophy, stable. There is stable very mild patchy low attenuation in the periventricular and subcortical white matter suggesting mild microangiopathy. There is no definite acute infarct given the limited sensitivity of CT versus MRI. There is no discrete intracranial mass, mass effect, or intracranial hemorrhage. The surrounding soft tissues and bony structures are essentially unremarkable. IMPRESSION: Stable chronic changes but no evidence of acute intracranial pathology. Electronically signed by Jensen Roldan 03/18/2017 3:43 PM
--- NOTE | 2017-03-18 16:06 | Diag Imaging Result Doc PS360 ---
EXAM: CT THORAX/ABD/PELVIS W/O CONT INDICATION: fever/Leukocytosis TECHNIQUE: Dose reduction protocol was used. COMPARISON: CT abdomen and pelvis dated 07/11/2012. No prior dedicated CT chest is available for comparison. FINDINGS: CHEST: There is bilateral interstitial thickening suggesting edema. There is mild subsegmental atelectasis at the left lung base. There is a prominent calcified granuloma in the right lower lobe. There is no pleural fluid collection and no pneumothorax. There is cardiomegaly and there is a moderate-sized pericardial effusion. There are a few calcified mediastinal and hilar lymph nodes indicating prior granulomatous disease. ABDOMEN/PELVIS: There has been a previous cholecystectomy. There is questionable very subtle nodularity involving the contour of the liver which could indicate cirrhosis. The spleen is mildly prominent measuring up to 14.1 cm in axial length. There are multiple splenic calcified granulomata. The adrenal glands and pancreas are unremarkable. Both kidneys are atrophic. This has worsened during the interval. There is a small amount of gas in the urinary bladder. This is nonspecific and may be due to recent instrumentation. The bladder is unremarkable, otherwise. There is no evidence of bladder wall thickening. There is somewhat increased stool in the colon which could indicate constipation. There is uncomplicated diverticulosis coli. The appendix is normal. The remainder of the GI tract is essentially unremarkable. There has been a previous hysterectomy. The left ovary appears to remain and there are several cystic lesions arising from the left ovary. However, it is very similar to the previous study. There is body wall anasarca. There is prominent anterolisthesis of L5 on S1, but it is stable. IMPRESSION: 1.Diffuse bilateral interstitial thickening suggesting pulmonary edema. 2.Cardiomegaly and moderate-sized pericardial effusion. 3.Suggestion of very subtle nodular liver contour, which may indicate cirrhosis. 4.Mildly prominent spleen. 5.Renal atrophy that has worsened during the interval. 6.Possible constipation. 7.Body wall anasarca. 8.Other incidental/nonacute findings detailed above. Electronically signed by Jensen Roldan 03/18/2017 4:04 PM
[2017-03-18] MEDS: MERREM 500 MG in NS 50 ML IV SCH (17:42)
[2017-03-18] MEDS ORDERED: ZOSYN 2.25 GM in NS 50 ML IV SCH (18:00)
[2017-03-18] MEDS: OXY IR PO PRN (21:20)
[2017-03-18] MEDS: DULCOLAX PR SCH (21:20)
[2017-03-18] MEDS: LACTULOSE PO SCH (22:09)
[2017-03-18] MEDS ORDERED: BENADRYL PO ONE (22:10)
[2017-03-19] MEDS: OXY IR PO PRN ×4 (01:47→20:16)
--- NOTE | 2017-03-19 03:58 | PROGRESS NOTE ---
DATE: 03/18/2017 SUBJECTIVE: The patient was seen today while on hemodialysis. She was noted to be lethargic and despite that she was oriented to person and place only. She was also noted to be febrile this morning with a temperature of a 100.4 degrees. She also has asterixis. OBJECTIVE: Vital Signs: Temperature max 100.4 degrees, blood pressure 137/68, heart rate 86, respirations 20, O2 saturations 95% on 2 L nasal cannula. General: This is a chronically ill- appearing elderly female lying in bed in no acute distress. Heart: S1, S2 normal. Regular rate and rhythm. Lungs: Equal air entry bilaterally. No crackles. No rales. No wheezing. Abdomen: Positive bowel sounds. Soft. Distended. Nontender. Extremities: 2+ edema, no cyanosis, no calf tenderness. Neuro: The patient is lethargic. She is oriented to person and place. She has asterixis to the upper extremities and head. She does respond to painful stimuli. LABS: White blood cell count 13, hemoglobin 8.7, hematocrit 27, platelets 260, 000. ABG pH of 7.37, pCO2 57, PO2 46, bicarb 30, O2 saturations 87% on 2 L nasal cannula. Sodium 136, potassium 5.9, chloride 97, CO2 23, BUN 67, creatinine 7.6, glucose 107, ammonia level 22 , AST 33, ALT 13, alkaline phosphatase 83. CT of the head shows chronic changes nothing acute. CT of the abdomen, pelvis and chest reveals diffuse bilateral interstitial thickening suggestive of pulmonary edema. Cardiomegaly and moderate-sized pericardial effusion. Nodular liver which may indicate cirrhosis. Renal atrophy. Constipation. ASSESSMENT AND PLAN: 1. Encephalopathy. This may be a combination of toxic and metabolic encephalopathy. Several of the patient's medications have been discontinued by the nephrology service. A head CT was unremarkable and patient's ammonia level was normal. The patient may possibly have an underlying infection. Will continue to monitor the patient's mental status closely. Will consult Neurology further recommendations. Will also again work the patient up for an underlying infection and start empiric antibiotic therapy. Cultures have been obtained. 2. Hypoxemia. The CT of the chest was reviewed and it indicates that the patient has pulmonary edema. Will continue with supplemental oxygen and bronchodilator therapy. 3. Pulmonary edema. This will be addressed during the patient's dialysis sessions. 4. Moderate pericardial effusion. Will order a 2-dimensional echocardiogram. 5. Leukocytosis. Blood cultures have been obtained as well as a urinalysis. A CT of the chest, abdomen and pelvis does not reveal an obvious source of infection at this time. The patient has been started on empiric antibiotic therapy. 6. End-stage renal disease. Management as per the rpg programmer. 7. Constipation. Will start the patient on scheduled laxatives therapy. 8. Nodular liver. This may be suggestive of cirrhosis. Will order an abdominal ultrasound to be done tomorrow morning to further assess this. 9. Macrocytic anemia. The patient's hemoglobin and hematocrit have improved after receiving blood over the course of the hospital stay. The patient had an EGD done in November that revealed gastritis. A colonoscopy was attempted but unable to be completed. Will continue to monitor the hemoglobin and hematocrit and check stool for occult blood. 10. Hypothyroidism. Continue on Synthroid. 11. Hypertension. Controlled. 12. Hyperkalemia. This will be addressed during dialysis. The patient is also on Veltassa. 13. Status post left total knee arthroplasty. Stable. The patient will be going to rehab once medically stable. 14. Deep vein thrombosis prophylaxis. Continue on Xarelto. cc: Shona Posada MD MTDRodrick
[2017-03-19 04:39] LABS: ALLEN TEST YES; BE 0.6 mmoll (-3.0-3.0); BLOOD TYPE ARTERIAL; DRAW SITE R RADIAL; O2(CT) 18.9 mL/dL (15.0-23.0); PO2(98.6) 101 mmHg (60-100); SAMPLE BLOOD; SAO2 98.1 % (95.0-100.0); THB 14.1 g/dL (11.5-17.4); pH(98.6) 7.24 (7.35-7.45)
[2017-03-19 04:40] LABS: MODALITY CANNULA; PCO2(98.6) 70 mmHg (35-45)
[2017-03-19 06:00] LABS: MANUAL DIFF NEEDED? NO
[2017-03-19 06:11] LABS: RETIC% 2.6 % (0.8-2.1); RETIC-HE 31.1 PG (28.2-36.6)
[2017-03-19] MEDS: XARELTO PO SCH (06:14)
[2017-03-19 06:15] LABS: BASO% 0.5 % (0.0-0.8); EOS# 0.19 X1000 (0.0-0.7); EOS% 1.7 % (0.0-10.0); HEMATOCRIT 24.5 % (37.0-47.0); HEMOGLOBIN 7.7 g/dL (12.0-16.0); IMM GRAN# 0.02 X1000 (0.0-0.04); IMM GRAN% 0.2 % (0.0-0.5); LYMPH# 0.44 X1000 (1.2-3.4); MCH 31.3 PG (27-31); MCHC 31.4 g/dL (33-37); MCV 99.6 FL (81-99); MONO# 1.09 X1000 (0.11-0.59); MONO% 9.9 % (1.7-9.3); MPV 10.1 FL (7.4-10.4); NEUT% 83.7 % (42.2-75.2); PLT 230 X1000 (130-400); RBC 2.46 XMIL (4.2-5.4)
[2017-03-19] MEDS: PROTONIX IV SCH (06:15)
[2017-03-19] MEDS: HUMULIN R SUBQ SCH ×4 (06:29→22:00)
[2017-03-19 06:36] LABS: ALBUMIN 3.3 g/dL (3.5-5.0); CALCIUM 8.6 mg/dL (8.8-10.2)
[2017-03-19] MEDS: SYNTHROID PO SCH (06:54)
--- NOTE | 2017-03-19 07:13 | Diag Imaging Result Doc PS360 ---
EXAM: CHEST-PORTABLE HISTORY: pulmonary edema TECHNIQUE: AP portable erect at 0540 COMMENT: There is cardiomegaly. The inspiration is slightly less optimal than on 12/26/2016 otherwise there is been no significant change. IMPRESSION: Cardiomegaly. Electronically signed by Drew Best 03/19/2017 7:11 AM
[2017-03-19] MEDS: RENVELA POWDER PACKET PO SCH ×3 (08:44→17:26)
[2017-03-19] MEDS: NORVASC PO SCH (08:47)
[2017-03-19] MEDS: ASPIRIN PO SCH (08:47)
[2017-03-19] MEDS: LACTULOSE PO SCH ×2 (08:47→20:16)
[2017-03-19] MEDS: NEPHROCAPS PO SCH (08:47)
[2017-03-19] MEDS: LASIX PO SCH (08:47)
[2017-03-19] MEDS: COLACE PO SCH ×2 (08:47→20:16)
[2017-03-19] MEDS: PERIDEX MT SCH ×2 (08:47→20:16)
[2017-03-19] MEDS: TRADJENTA PO SCH (08:48)
[2017-03-19] MEDS: LEVEMIR SUBQ SCH (08:48)
[2017-03-19 09:43] LABS: ALLEN TEST YES; BE 1.7 mmoll (-3.0-3.0); BLOOD TYPE ARTERIAL; DRAW SITE R RADIAL; O2(CT) 11.4 mL/dL (15.0-23.0); PO2(98.6) 112 mmHg (60-100); SAMPLE BLOOD; SAO2 98.8 % (95.0-100.0); THB 8.3 g/dL (11.5-17.4); pH(98.6) 7.28 (7.35-7.45)
[2017-03-19 09:44] LABS: MODALITY BI PAP
[2017-03-19 09:46] LABS: PCO2(98.6) 62 mmHg (35-45)
--- NOTE | 2017-03-19 10:37 | Diag Imaging Result Doc PS360 ---
EXAM: US ABDOMEN-COMPLETE HISTORY: Cirrhosis/splenomegaly TECHNIQUE: Abdominal ultrasound COMMENT: The pancreatic head and body are normal in appearance. The aorta and inferior vena cava are normal where there are visible. The liver is somewhat heterogeneous in echotexture. There is antegrade flow in the portal vein. There is no evidence of biliary dilatation the common bile duct measuring 5 mm. Both kidneys are atrophic the right measuring 6.3 the left 7.7 cm in length. The kidneys are hyperechoic. There is a 1.8 cm cyst in the right upper pole. The spleen is enlarged measuring over 13.7 cm in two planes. IMPRESSION: Probable cirrhosis. Bilateral renal atrophy which has worsened since 12/09/2013. Possibility of medical renal disease is suspected. Splenomegaly. Electronically signed by Drew Best 03/19/2017 10:35 AM
--- NOTE | 2017-03-19 12:42 | PROGRESS NOTE ---
DATE: 03/19/2017 SUBJECTIVE: The patient is a pleasant 56-year-old female, who is 6 days status post left total knee arthroplasty. The patient's events were noted yesterday when the patient became lethargic and developed encephalopathy. She has undergone a head CT, which was negative for an acute abnormality. She is currently on BiPAP. Vital signs are stable. OBJECTIVE: General appearance: On physical exam, patient is currently on a BiPAP. She is lethargic. However, is arousable. Does follow commands. Left knee: Her wound looks good. There is no signs infection. She has no some evidence of ecchymosis. Calf is soft. She has active dorsiflexion and plantar flexion. ASSESSMENT: 1. The patient is status post left total knee arthroplasty. 2. Encephalopathy. 3. Hypoxemia secondary to pulmonary edema. 4. End-stage renal disease requiring dialysis. PLAN: At this point, the patient is currently undergoing supportive treatment of BiPAP. She is continuing to undergo workup. cc: MD Shona Garcia MD
--- NOTE | 2017-03-19 14:56 | CONSULTATION ---
DATE OF CONSULTATION: 03/19/2017 REASON FOR CONSULTATION: Altered mental status. SUBJECTIVE: A 56-year-old, female, status post a very recent left knee surgery, who was to be discharged yesterday. She was noted to have increased confusion and was not acting herself. An ABG was obtained, showing a pO2 of 46, and pCO2 of 57, with normal pH. Pulse ox was placed, showing a range of upper-60s to, I believe, the 80s per the nursing notes. She was transferred to the ICU. Also noted her white count was elevated at 13. Her hospital course has been complicated by anemia, requiring 4 units of red blood cells. Also, she is a dialysis patient and had been receiving hemodialysis during her stay. Her BUN and creatinine had jumped yesterday, but are coming back down today. The patient has been started on antibiotics empirically. Urine sample has been difficult to obtain. Head CT was obtained, which did not show any acute findings. PAST MEDICAL HISTORY: End-stage renal disease, on hemodialysis, hypothyroidism , chronic anemia, type 2 diabetes, morbid obesity, PICA, hyperlipidemia, hypertension, peripheral neuropathy, history of breast cancer, left mastectomy, hysterectomy, cholecystectomy, shoulder surgery, recent left knee surgery. SOCIAL HISTORY: She is a nonsmoker. No alcohol. FAMILY HISTORY: No coronary disease or renal disease. REVIEW OF SYSTEMS: Unobtainable, due to her current mental status. PHYSICAL EXAMINATION: Vital Signs: She had a low-grade temp of 100.4 degrees yesterday morning, has since been normalized. Blood pressure ranging from about 112 to 170/40s to 70s, most recently 143/78. Pulse 95, respirations 11 to 28. Currently, now on BiPAP. General: This is an obese, female, on BiPAP. Supine in bed in ICU. No acute distress. She opens her eyes to voice and regards. Neck: Supple. No meningismus. HEENT: Normal. BiPAP in place. Cardiovascular: Regular rate. Intact distal pulses. There is some swelling to the left leg and post surgical changes. Otherwise, no significant edema. Lungs: No increased work of breathing. Normal chest rise extension. She is on BiPAP. No audible wheezes. Abdomen: Soft, nontender, nondistended. Extremities: Well-perfused. There is some left leg swelling, post-surgical changes. Again, pulses were intact. Skin: Warm, dry, and intact with, otherwise, post-surgical changes about the left knee. Neurologic: Mental status: She is asleep initially. Arouses to voice, regards. Mostly attentive, although occasionally drifts to sleep. Follows simple commands. Knows digit distinction. Difficult with left/right distinction. No complex commands. She is oriented to self, the year, but not otherwise. Cranial nerves: Pupils miotic, 2 mm. Subtle reaction bilaterally. Horizontal eye movement with passive head turning. Face appears symmetrical. Blinks to threat. Intact corneas. Motor exam: No obvious drift. Her strength appears symmetric, at least against gravity, but difficult to have her participate otherwise. The left leg strength testing is limited by her recent knee surgery. Sensory exam: Responds to sensory stimulation in all extremities equally. Reflexes are symmetric, diminished throughout. Toes downgoing. No clonus. No definite incoordination on limited testing. DIAGNOSTICS: Noncontrasted head CT was personally reviewed. There are no acute findings, though there was some prominent diffuse cerebral atrophy noted. LABORATORY STUDIES: White count of 13, now 11, hemoglobin 7.7, hematocrit 24. ABG yesterday with a pH of 7.37, pCO2 57, pO2 of 46. Normal sodium today, and potassium. BUN today 46, creatinine 5.2, glucose 93, calcium 8.6, phosphorus 5. LFTs are not elevated, with the exception of AST which is 33. No urine. Ammonia is normal. ASSESSMENT AND PLAN: A 56-year-old, female with end-stage renal disease, on hemodialysis, status post recent left knee surgery, which was complicated by anemia, requiring transfusion. Now with the development of global encephalopathy. Her exam is limited by the reduced range of motion of the left leg at this time, but otherwise appears to be nonfocal. Head CT did not show any acute findings, which is reassuring. I suspect the encephalopathy is likely related to toxic or metabolic causes, and possibly an infectious etiology as well. She was also noted to be hypoxic for unclear reasons. I agree with the correction of any underlying abnormalities. If her mentation does not improve, then I would recommend a brain MRI once she is capable of having this. Thank you for this consultation. cc: MD Shona Carter MD MTDD
--- NOTE | 2017-03-19 16:59 | ECHO REPORT ---
ORDER DATE: 03/19/2017 INDICATION: Pericardial effusion, hypertension, end-stage renal disease. FINDINGS: 1. The right atrium appears normal in size. 2. There is mild tricuspid regurgitation. There is poor color Doppler evaluation, but RV systolic pressure appears to be 42. 3. Right ventricle appears to be dilated with moderate reduction in RV systolic function. 4. Mild pulmonic insufficiency. 5. Mild left atrial enlargement at 4 cm. 6. No mitral prolapse. Limited Doppler evaluation of the mitral valve was performed. 7. Normal LV size. Moderate left ventricular hypertrophy with a posterior and interventricular septal wall thickness of 1.4 cm each. LV end-diastolic dimension is 5.2. The LV systolic function appears to be normal on the order of 60-65%. 8. Aortic valve opens well. It is trileaflet. I do not see any evidence of stenosis or insufficiency. 9. Aorta appears normal in visualized segments. 10. There is a mild predominantly posterior pericardial effusion with no evidence of tamponade physiology. 11. The IVC is dilated at a dimension of 2.4 cm. cc: MD Shona Galo MD
[2017-03-19] MEDS: MERREM 500 MG in NS 50 ML IV SCH (17:26)
--- NOTE | 2017-03-19 19:26 | PROGRESS NOTE ---
DATE: 03/19/2017 SUBJECTIVE: Ms. Jiang is resting quietly in bed. She is alert to person. Otherwise, she is unable to follow commands and she continues to pick and pull at her gown, along with her blanket and sheets. OBJECTIVE: Vital signs: Her most recent vital signs are temperature 97.8 degrees, blood pressure 150/58, heart rate 90, respirations 16. She is on 3 L nasal cannula. Last recorded saturation 98%. She has had 300 in, she has had 3 L out, removed on dialysis yesterday. LABORATORIES: Sodium 137, potassium 5, chloride 97, CO2 28, BUN 46, creatinine 5.2, glucose 93, anion gap 12, calcium 8.6, phosphorus 5, albumin 3.3. White count 10.98, hemoglobin 7.7, hematocrit 24.5, with a platelet count of 230,000. ABG: PH 7.24, CO2 of 70, pO2 of 101, bicarb 25.3 on 3 L. PHYSICAL EXAMINATION: General: This is a 56-year-old white female. She is currently resting in bed. She is in no acute distress, though she appears chronically ill. Skin: Warm and dry. HEENT: Normocephalic, atraumatic. Conjunctiva is pale. She has ZAC. Mucous membranes are dry. Neck: Supple. Trachea midline. No evidence of JVD. Cardiovascular: Regular rate and rhythm. No murmur or gallop appreciated. Lungs: Clear to auscultation anteriorly. Equal excursion. She is on O2. Abdomen: Large, round, soft, nontender. Positive bowel sounds. Genitourinary: Not inspected. Minimal void with dialysis assist. Extremities: She has trace to 1 + lower extremity edema, with upper hand edema. Neurological: The patient is unable to follow commands. She does make eye contact when you call her name, otherwise she remains nonverbal. ASSESSMENT AND PLAN: 1. End-stage renal disease. The patient had a routine dialysis treatment yesterday. We will plan for the a.m. treatment per her routine schedule. 2. Electrolytes. These remain stable. 3. Acid-base balance. This remains stable. 4. Anemia. This remains low, but stable. The patient has received 4 units of packed red blood cells during her hospitalization. May possibly require transfusion on dialysis tomorrow. We will schedule a CBC to evaluate. 5. Left knee arthroplasty. This remains in a boot. It is followed by Orthopedics. I would like to thank you for allowing us to follow with this patient. Dictated by RUKHSANA Bone for Trav Christine MD Patient seen, data reviewed, discussed with Austin Ferraro on 03/19/17. I agree with the above assessment and plan of care. cc: RUKHSANA Bone MD Katherine Takundwa, MD [facility]
[2017-03-19] MEDS: DULCOLAX PR SCH (20:16)
[2017-03-20 04:28] LABS: ALLEN TEST YES; BLOOD TYPE ARTERIAL; DRAW SITE R RADIAL; O2(CT) 7.8 mL/dL (15.0-23.0); PO2(98.6) 86 mmHg (60-100); SAMPLE BLOOD; THB 5.7 g/dL (11.5-17.4); pH(98.6) 7.23 (7.35-7.45)
[2017-03-20 04:32] LABS: MODALITY BI PAP; PCO2(98.6) 71 mmHg (35-45)
--- NOTE | 2017-03-20 04:55 | PROGRESS NOTE ---
DATE: 03/19/2017 SUBJECTIVE: The patient is resting comfortably. She is currently on BiPAP. She is a little more awake today and able to interact with her family at the bedside. OBJECTIVE: Vital Signs: Temperature 98.8 degrees, blood pressure 127/63, heart rate 76, respirations 16, O2 saturations 99% on BiPAP at 35% FiO2. General: This is a morbidly obese female lying in bed, in no acute distress. Heart: S1, S2. Normal. Regular rate and rhythm. Lungs: Equal air entry bilaterally, no crackles, no rales. Abdomen: Positive bowel sounds, soft, nontender, obese, no rebound tenderness. Extremities: No edema. No cyanosis. No calf tenderness. Neuro: The patient is alert and oriented to person and place. She does have periods of mild confusion. LABS: White blood cell count 10, hemoglobin 7.7, hematocrit 24, platelets 230,000, retic count 2.6. ABG pH of 7.28, pCO2 62, PO2 112, bicarb 26. Sodium 137, potassium 5, chloride 97, CO2 28, BUN 46, creatinine 5.2, glucose 108. ASSESSMENT AND PLAN: 1. Acute hypercapnic respiratory failure. The patient was started on BiPAP this morning. Will continue BiPAP, antibiotic therapy and bronchodilator therapy. Pulmonary has been consulted for further recommendations. 2. Encephalopathy. Slowly improving. Will continue to monitor closely. The patient has been assessed by the neurologist. 3. Leukocytosis. Slowly improving. The patient has been afebrile. Continue with antibiotic therapy. So far the cultures remain negative. 4. End-stage renal disease. Management as per the high value associate. 5. Iron-deficiency anemia. The patient's stool for occult blood was positive and her hemoglobin and hematocrit have dropped again since yesterday. Will consult GI for further assistance. Also the patient is on Xarelto for DVT prophylaxis. 6. Hypertension. Controlled. 7. Pulmonary edema. This will be addressed during dialysis. 8. Constipation. Continue on scheduled laxative therapy. 9. Pericardial effusion. Stable. No evidence of tamponade. 10. Gastrointestinal prophylaxis. Continue on IV Protonix. 11. Status post left total knee arthroplasty. Stable. 12. Liver cirrhosis. This appears to be a new diagnosis for the patient. She also has splenomegaly. Again GI has been consulted for further recommendations. cc: Shona Posada MD
[2017-03-20 04:57] LABS: MANUAL DIFF NEEDED? NO
[2017-03-20 05:03] LABS: BASO% 0.4 % (0.0-0.8); EOS# 0.13 X1000 (0.0-0.7); EOS% 1.4 % (0.0-10.0); HEMATOCRIT 23.3 % (37.0-47.0); HEMOGLOBIN 7.2 g/dL (12.0-16.0); IMM GRAN# 0.02 X1000 (0.0-0.04); IMM GRAN% 0.2 % (0.0-0.5); LYMPH# 0.56 X1000 (1.2-3.4); LYMPH% 5.9 % (20.5-51.1); MCH 31.2 PG (27-31); MCHC 30.9 g/dL (33-37); MCV 100.9 FL (81-99); MONO# 0.69 X1000 (0.11-0.59); MONO% 7.3 % (1.7-9.3); MPV 10.2 FL (7.4-10.4); NEUT% 84.8 % (42.2-75.2); PLT 225 X1000 (130-400); RBC 2.31 XMIL (4.2-5.4)
[2017-03-20 05:13] LABS: INR 1.04; PROTIME 10.9 Seconds (9.2-11.7)
[2017-03-20 05:33] LABS: ALBUMIN 3.1 g/dL (3.5-5.0); CALCIUM 9.2 mg/dL (8.8-10.2); POTASSIUM 5.6 mmol/L (3.5-5.1)
[2017-03-20] MEDS: PROTONIX IV SCH (06:13)
[2017-03-20] MEDS: SODIUM CHLORIDE 0.9% INJ SCH (06:13)
[2017-03-20] MEDS: SYNTHROID PO SCH (06:13)
[2017-03-20] MEDS: XARELTO PO SCH (06:13)
[2017-03-20] MEDS: HUMULIN R SUBQ SCH ×4 (06:36→21:00)
[2017-03-20] MEDS ORDERED: TIGHT: 0.2 ML/HR MISC PRN (06:47)
[2017-03-20] MEDS ORDERED: NS 2,000 ML MISC PRN (06:47)
[2017-03-20] MEDS ORDERED: HEPARIN IV PRN (06:47)
--- NOTE | 2017-03-20 07:22 | Diag Imaging Result Doc PS360 ---
EXAM: CHEST-PORTABLE HISTORY: pulmonary edema TECHNIQUE: AP portable erect at 0545 COMMENT: There is cardiomegaly. There is increased interstitial markings and pulmonary vascularity. Given differences in inspiration this has not changed appreciably since 03/19/2017. IMPRESSION: Cardiomegaly with mild pulmonary edema. Electronically signed by Drew Best 03/20/2017 7:19 AM
[2017-03-20] MEDS ORDERED: NS 2,000 ML ONE (08:09)
[2017-03-20] MEDS ORDERED: HEPARIN ONE (08:09)
[2017-03-20] MEDS ORDERED: DUONEB (A & A) INH PRN (08:18)
[2017-03-20] MEDS: TRADJENTA PO SCH (08:19)
[2017-03-20] MEDS: NEPHROCAPS PO SCH (08:19)
[2017-03-20] MEDS: COLACE PO SCH ×2 (08:19→20:44)
[2017-03-20] MEDS: LASIX PO SCH (08:19)
[2017-03-20] MEDS: RENVELA POWDER PACKET PO SCH ×3 (08:19→17:01)
[2017-03-20] MEDS: LACTULOSE PO SCH ×2 (08:19→20:45)
[2017-03-20] MEDS: ASPIRIN PO SCH (08:19)
[2017-03-20] MEDS: PERIDEX MT SCH ×3 (08:19→20:03)
[2017-03-20] MEDS: NORVASC PO SCH (08:19)
[2017-03-20] MEDS ORDERED: INSULIN PEN NEEDLES ONE (09:00)
[2017-03-20] MEDS: LEVEMIR SUBQ SCH (09:00)
--- NOTE | 2017-03-20 09:52 | CONSULTATION ---
DATE OF CONSULTATION: 03/20/2017 REFERRING PHYSICIAN: Dr. Posada. HISTORY OF PRESENT ILLNESS: This is a 56-year-old female with a past medical history of end-stage renal disease on hemodialysis, hypothyroidism, chronic anemia, diabetes, morbid obesity, hyperlipidemia, hypertension, peripheral neuropathy and history of breast cancer that underwent a left total knee arthroplasty and subsequently developed hypercapnic respiratory failure and was placed on BiPAP. She denies any chest pain, abdominal pain, nausea, vomiting or diarrhea. REVIEW OF SYSTEMS: A 10-point review of systems was conducted, is pertinent as noted in the HPI, otherwise noncontributory. PAST MEDICAL HISTORY: As mentioned in HPI, otherwise noncontributory. PAST SURGICAL HISTORY: Left mastectomy, hysterectomy, cholecystectomy, right and left AV shunt, left reverse total shoulder arthroplasty and recent left total knee arthroplasty. ALLERGIES: Penicillin. SOCIAL HISTORY: Denies use of tobacco, alcohol or illicit drugs. FAMILY HISTORY: Noncontributory. ACTIVE MEDICATIONS: 1. Norvasc. 2. Aspirin. 3. Dulcolax. 4. Peridex. 5. Colace. 6. Lasix. 7. Levemir. 8. Humulin R. 9. Lactulose. 10. Synthroid. 11. Tradjenta. 12. Merrem. 13. Zofran. 14. Oxy-IR. 15. Protonix. 16. Xarelto. PHYSICAL EXAMINATION: Vital Signs: Blood pressure 148/59, heart rate 85, respiratory rate 18, temperature 97.8, oxygen saturation 96%. General: Awake, in bed and no acute distress noted. HEENT: Normocephalic and atraumatic. PERRL. Cardiovascular: S1, S2 present. Chest: Reduced entry. Abdomen: Bowel sounds present in all quadrants. Extremities: No edema noted. Neurologic: No focal deficits. LABS AND INVESTIGATIONS: WBC 9.51, RBC is 2.31, hemoglobin 7.2, hematocrit 23.3, platelet count 225. Sodium 136, potassium 5.6, chloride 95, CO2 22, anion gap 19. BUN 67, creatinine 0.7, glucose 110. Blood gas reveals a pH 7.23, pCO2 of 71, pO2 of 86, HC03 26.5, base excess 2, saturated oxygen 98. Chest x-ray shows cardiomegaly with mild pulmonary edema. ASSESSMENT AND PLAN: This is a 56-year-old, morbidly obese female, with past medical history mentioned in HPI that is status post total left knee arthroplasty. She did develop acute hypercapnic respiratory failure and was placed on BiPAP. She is receiving intravenous antibiotics. Will order bronchodilators. She also has had some encephalopathy that is slowly improving. Also end-stage renal disease. Continue hemodialysis per plasterer journeyman. She is on Xarelto and Protonix. Further recommendations pending diagnostic studies. Thank for the courtesy of this consult. Dictated by RUKHSANA Ramirez for Kerry Carranza MD cc: RUKHSANA Ramirez MD Katherine Takundwa, MD
--- NOTE | 2017-03-20 10:46 | PROGRESS NOTE ---
DATE: 03/20/2017 SUBJECTIVE: Ms. Jiang is resting quietly in bed. She remains on BiPAP. She opens her eyes to verbal stimuli. She does not interact. She does appear slightly agitated upon arousal and starts pulling at her bedding, though she remains nonverbal. OBJECTIVE: Her most recent vital signs, temperature 97.8 degrees, blood pressure 136/60, heart rate 72, respirations 18. She remains on 30% BiPAP. She has had 660 in. She has had 0 recorded out, with need for hemodialysis. LABS: Sodium 136, potassium 5.6, chloride 95, CO2 22, BUN 67, creatinine 7, glucose 110, anion gap 19, calcium 9.2, phosphorus 6.8, and albumin 3.1. White count 9.51, hemoglobin 7.2, hematocrit 23.3, with a platelet count of 225,000. Patient's pro-time is 10.9 with an INR of 1.04. ABGs: pH is 7.23, pCO2 71, pO2 86, bicarb 26.5 on 30% BiPAP. She has a lactate of 0.50. PHYSICAL EXAM: General: This is a 56-year-old white female. She is resting in bed. She appears in no acute distress, though she does get agitated upon stimulation and rest after no verbal stimulation present. Skin: Warm and dry. HEENT: Normocephalic, atraumatic. Conjunctivae pale. She has ZAC. Mucous membranes are dry. Neck: Supple. Trachea midline. No JVD. Cardiovascular: She is regular rate and rhythm. No murmur or gallop appreciated. Lungs: Clear to auscultation anteriorly. Equal excursion. She remains on O2 with BiPAP. Abdomen: Large, round, soft, nontender, positive bowel sounds. Genitourinary: Not inspected. Minimal void with dialysis assist. Extremities: Indicate trace pretibial edema, especially trace to 1+ to the upper extremities. Patient's left foot remains in a boat. Neurological: Patient is unable to follow commands. She does get agitated to verbal stimuli. Otherwise, she makes eye contact with her name and then drifts back off to sleep again. ASSESSMENT AND PLAN: 1. End-stage renal disease. Patient is due for her routine dialysis treatment today. We will plan to place her on a 2 K bath. She is to dialyze for 3.5 hours. We will attempt to pull patient to her dry weight. 2. Electrolytes. Patient has mild hyperkalemia with correction on dialysis. 3. Acid-base balance. This remains a little bit stable. 4. Anemia. Patient's hemoglobin has dropped from 9 to 7.2, in the last 3 days. We will plan for 2 units of packed red blood cells to be transfused while on dialysis. May consider having a GI inspection with possible scope during this hospitalization. 5. Knee arthroplasty. Again, this is followed by orthopedics. I would like to thank you for allowing us to follow with this patient. Dictated by RUKHSANA Bone for Trav Christine MD Patient seen, data reviewed, discussed with Austin Ferraro on 03/20/17. I agree with the above assessment and plan of care. cc: RUKSHANA Bone MD Katherine Takundwa, MD [facility] HOSPITALRodrick
--- NOTE | 2017-03-20 12:00 | PROGRESS NOTE ---
DATE: 03/20/2017 SUBJECTIVE: The patient was noted to be very agitated this morning. She is currently on BiPAP. No other issues reported by the nursing staff. OBJECTIVE: Vital Signs: Temperature 96.1 degrees, blood pressure 140/70, heart rate 73, respirations 18, O2 saturation is 98% on nasal cannula. General: This is a chronically ill- appearing, elderly female, lying in bed, in no acute distress. Heart: S1, S2. Normal. Regular rate and rhythm. Lungs: Equal air entry bilaterally. No crackles. No wheezing. No rales. Abdomen: Positive bowel sounds. Soft, nontender, nondistended. Extremities: No edema. No cyanosis. No calf tenderness. Neurologic: The patient is confused. She is able to move all 4 extremities. LABS: White blood cell count 9.5, hemoglobin 7.2, hematocrit 23, platelets 225,000. INR 1. Sodium 136, potassium 5.6, chloride 95, CO2 22, BUN 67, creatinine 7, glucose 110. ABG, pH 7.23, pCO2 71, PO2 86, bicarb 26, albumin 3.1. ASSESSMENT AND PLAN: 1. Acute hypercapnic respiratory failure. The patient remains on BiPAP. Further recommendations to follow from the baggage agent. 2. Pulmonary edema. This will be addressed during dialysis. 3. Iron deficiency anemia. The patient's hemoglobin and hematocrit have dropped again today. GI has been consulted for further evaluation. The patient's stool for occult blood is positive. 4. End-stage renal disease. 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 5. Encephalopathy. Unchanged. Will continue to monitor for improvement. 6. Hypertension. Controlled. 7. Pericardial effusion. Stable. 8. Liver cirrhosis. We will await further recommendations from GI. 9. Status post left total knee arthroplasty. Stable. cc: Shona Posada MD
--- NOTE | 2017-03-20 12:44 | PROGRESS NOTE ---
DATE: 03/20/2017 Dr. Jewell saw Ms. Jiang for initial neurology consultation yesterday. She presented with confusion and was noted to be hypoxic several days ago. She has been managed for anemia, renal failure, dyslipidemia, hypertension, diabetes mellitus. She has not had any focal neurologic features. She has never been completely unresponsive. She has sometimes been difficult to arouse and sometimes difficult to keep alert. I saw her today during dialysis. Workup includes noncontrast CT of the head 2 days ago showing diffuse atrophy, chronic white matter changes, nothing focal or acute, nothing significantly changed compared to 2015 scan. Lab work shows anemia, WBC count down from 13,000 a few days ago; under 10,000 today. PO2 up from 46 two days ago to 86 today. Chemistry shows elevated BUN and creatinine above baseline, mildly elevated blood sugar, borderline hypocalcemia, moderately elevated phosphorus. HOME MEDICATIONS: Computer record charts her home medicine list including 1. Quetiapine. 2. Furosemide. 3. Aspirin. 4. Lyrica. 5. Trajenta. 6. Insulin. 7. Amlodipine. 8. Thyroid. 9. Omeprazole. 10. Folic acid. 11. B vitamins. 12. Xarelto. 13. Ondansetron. 14. Docusate. 15. She has oxycodone 5 mg or 10 mg dose p.r.n. as preadmission medicine. There was no urine drug screen this admission. CURRENT MEDICINES: 1. Albuterol/ipratropium. 2. Amlodipine. 3. Aspirin. 4. Bisacodyl. 5. Chlorhexidine. 6. Docusate. 7. Furosemide. 8. Insulin. 9. Lactulose. 10. Thyroid. 11. Trajenta. 12. B vitamin. 13. Ondansetron. 14. Pantoprazole. 15. Xarelto. 16. Sevelamer. 17. P.r.n. oxycodone, but I am not sure she has had a dose of oxycodone in recent hours. I believe she had 10 mg oxycodone doses 4 times yesterday, last about 14 hours ago. Temperature was charted at 102.7 four days ago, 100.4 two days ago, afebrile for more than 48 hours now. She has not had documented period of hypotension or extreme hypertension. Heart rate has been stable 70s-90s. Today, she seemed to sleep during dialysis. I woke her up with relatively minor stimulation. She seemed temporarily alert, briefly attentive, but did not follow requests to speak or to name or to hold up fingers. She was not attentive to visual field testing. She has full lateral eye movement with passive head turning. She did speak some words that were easily understood. Speech was not significantly dysarthric. Tone seems equal in the limbs. Vigorous motor exam is not possible at this point with dialysis in progress with access in one arm, attention to an IV problem in the other arm, left knee immobilized. There is no meningismus. IMPRESSION: Global encephalopathy, uncertain etiology. I suspect this is toxic /metabolic, but I do not have anything more precise to offer. I do not have any new suggestion and nothing to add to what Dr. Jewell has recommended. I suspect she will gradually improve with continued dialysis and attention to her metabolic situation. I do not think oxycodone is responsible for her current appearance, but we need to be careful with sedating medicines. Although there is not anything focal and there is no clear evidence of LABORER STEEL HANDLING infection, I think brain imaging would be reasonable if she does not improve in the next few days. cc: MD Shona Haq III, MD MTDD
[2017-03-20] MEDS: OXY IR PO PRN ×2 (16:39→23:55)
[2017-03-20] MEDS: MERREM 500 MG in NS 50 ML IV SCH (17:01)
--- NOTE | 2017-03-20 19:49 | PROGRESS NOTE ---
DATE: 03/20/2017 SUBJECTIVE: The patient is 7 days status post left total knee arthroplasty. The patient has developed encephalopathy as well as hypoxemia secondary to pulmonary edema. She has undergone evaluation per Dr. Munoz and was diagnosed with global encephalopathy with suspected toxic metabolic etiology. She underwent dialysis earlier today. She is resting comfortably. Her vital signs are stable. She is cooperative. She does follow commands. Still confused however. OBJECTIVE: The patient's left lower extremity wound looks good. There are no signs or symptoms of infection. The calf is soft. She is able to actively dorsiflex and plantarflex her ankle. LABORATORY DATA: Her hemoglobin is 7.2 and hematocrit is 23.3. IMPRESSION: 1. Postop day 7 status post left total knee arthroplasty. 2. Encephalopathy. 3. Hypoxemia secondary to pulmonary edema. 4. End-stage renal disease on dialysis. PLAN: At this point, the patient is confused. To undergo further medical workup. Will continue dialysis per Dr. Christine. She will undergo GI evaluation as well. cc: MD Shona Garcia MD
[2017-03-20] MEDS: DULCOLAX PR SCH (20:43)
[2017-03-21 04:41] LABS: ALLEN TEST YES; BE 4.2 mmoll (-3.0-3.0); BLOOD TYPE ARTERIAL; DRAW SITE R RADIAL; METHB 1.1 % (0.0-1.5); O2(CT) 13.2 mL/dL (15.0-23.0); PO2(98.6) 121 mmHg (60-100); SAMPLE BLOOD; SAO2 99.3 % (95.0-100.0); THB 9.7 g/dL (11.5-17.4); pH(98.6) 7.32 (7.35-7.45)
[2017-03-21 04:42] LABS: PCO2(98.6) 61 mmHg (35-45)
[2017-03-21 04:43] LABS: MODALITY BI PAP
[2017-03-21 05:14] LABS: BASO% 0.4 % (0.0-0.8); EOS# 0.14 X1000 (0.0-0.7); EOS% 1.3 % (0.0-10.0); HEMATOCRIT 29.5 % (37.0-47.0); HEMOGLOBIN 9.4 g/dL (12.0-16.0); IMM GRAN# 0.03 X1000 (0.0-0.04); IMM GRAN% 0.3 % (0.0-0.5); LYMPH% 4.5 % (20.5-51.1); MANUAL DIFF NEEDED? YES; MCH 30.8 PG (27-31); MCHC 31.9 g/dL (33-37); MCV 96.7 FL (81-99); MONO# 0.77 X1000 (0.11-0.59); MONO% 6.9 % (1.7-9.3); MPV 10.4 FL (7.4-10.4); NEUT% 86.6 % (42.2-75.2); PLT 219 X1000 (130-400); RBC 3.05 XMIL (4.2-5.4)
[2017-03-21 05:36] LABS: ALBUMIN 3.5 g/dL (3.5-5.0); CALCIUM 8.3 mg/dL (8.8-10.2); POTASSIUM 4.5 mmol/L (3.5-5.1)
[2017-03-21] MEDS: PROTONIX IV SCH (06:24)
[2017-03-21] MEDS: XARELTO PO SCH (06:24)
[2017-03-21] MEDS: SYNTHROID PO SCH (06:24)
[2017-03-21] MEDS: SODIUM CHLORIDE 0.9% INJ SCH (06:24)
[2017-03-21] MEDS: HUMULIN R SUBQ SCH ×4 (06:25→20:18)
[2017-03-21 06:34] LABS: BANDS 4 % (0-1); EOS 2 % (1-10); LYMPHS 6 % (21-51); MONO 8 % (1-9)
[2017-03-21] MEDS: ASPIRIN PO SCH (08:11)
[2017-03-21] MEDS: LACTULOSE PO SCH ×2 (08:11→20:44)
[2017-03-21] MEDS: PERIDEX MT SCH ×2 (08:11→20:44)
[2017-03-21] MEDS: LEVEMIR SUBQ SCH (08:11)
[2017-03-21] MEDS: RENVELA POWDER PACKET PO SCH ×3 (08:11→16:18)
[2017-03-21] MEDS: COLACE PO SCH ×2 (08:11→20:39)
[2017-03-21] MEDS: NEPHROCAPS PO SCH (08:11)
[2017-03-21] MEDS: LASIX PO SCH (08:11)
[2017-03-21] MEDS: TRADJENTA PO SCH (08:11)
[2017-03-21] MEDS: NORVASC PO SCH (08:11)
--- NOTE | 2017-03-21 08:48 | CONSULTATION ---
DATE OF CONSULTATION: 03/20/2017 REFERRING PHYSICIAN: Dr. Mccabe. PRIMARY DOCTOR: Dr. Ilir Rosado. REASON FOR CONSULTATION: Anemia and question of liver cirrhosis. HISTORY OF PRESENT ILLNESS: Ms. Jiang is a 56 year female who was admitted on 03/13/2017 for a left total knee arthroplasty and it was complicated by hypercapnic respiratory failure, placed on BiPAP. She was kept in ICU. She has a known history of endstage renal disease on hemodialysis, hypothyroidism, chronic anemia, diabetes, morbid obesity, hyperlipidemia, hypertension, peripheral neuropathy and history of breast cancer. The patient had a EGD and colonoscopy done within the last 2 years and workup of anemia. During this hospital stay she was noted to be confused and anemic and GI was consulted. She also had abdominal ultrasound done on 03/19/2017 which showed evidence of: 1. Probable cirrhosis. 2. Bilateral renal atrophy. 3. Splenomegaly, spleen measuring 13.7 cm. 4. A 1.8 cm cyst in the right upper pole of the kidneys. No evidence of any biliary dilation and the common bile duct measuring 5 mm. The liver is heterogeneous in echotexture. The pancreatic head and body are normal in appearance. There is antegrade flow in the portal vein. Prior to that, on 03/18/[address] of the chest, abdomen and pelvis for fever and leukocytosis which showed: A. Bilateral interstitial thickening suggesting edema. B. Mild subsegmental atelectasis of the left lung base. C. Calcified granuloma in the right lower lobe. D. Cardiomegaly. E. Moderate size pericardial effusion. F. Few calcified mediastinal and hilar lymph nodes indicating prior granulomatous disease. G. Previous cholecystectomy. H. Nodularity involving the contour of the liver, which could indicate cirrhosis. I. Spleen enlarged at 14.1 cm in the axial length and multiple splenic calcified granulomata noted. Both kidneys are atrophic. J. Increased stool in the colon which indicated constipation. K. Uncomplicated diverticulosis coli. L. Status post a previous hysterectomy. Cystic lesions arising in the left ovary and body wall anasarca. M. Prominent anterolisthesis of L5 on S1 that is stable. The patient was confused during our interview so most of the history obtained from the patient's records, chart and the nursing staff. According to nursing staff, the patient had a bowel movement today and she has been eating better and there is no documented history of nausea, vomiting, vomiting of blood, passing blood in the stools or black stools. PAST MEDICAL HISTORY: 1. Morbid obesity. 2. End stage renal disease on hemodialysis. 3. Hyperthyroidism. 4. Chronic anemia. 5. Diabetes. 6. Hyperlipidemia. 7. Hypertension. 8. Peripheral neuropathy. 9. Arthritis. 10. History of breast cancer. 11. Reflux disease. 12. Constipation. 13. Diverticulosis. PAST SURGERY HISTORY: EGD, colonoscopy, recent left knee arthroplasty, hysterectomy, left mastectomy, cholecystectomy, right and left AV shunt, left reverse total shoulder arthroplasty. ALLERGIES: Penicillin. SOCIAL HISTORY: No history of alcohol or illicit drugs. FAMILY HISTORY: Noncontributory. REVIEW OF SYSTEMS: Limited as the patient is confused. MEDICATIONS IN THE HOSPITAL: Include: 1. Pneumococcal vaccine. 2. Albuterol/ipratropium. 3. Amlodipine. 4. Aspirin. 5. Dulcolax 10 mg at bedtime. 6. Chlorhexidine mouthwash b.i.d. 7. Colace 100 mg p.o. b.i.d. 8. Folic acid and vitamin B complex. 9. Lasix 80 mg every day. 10. Levemir 25 units subcutaneous daily. 11. Sliding-scale regular insulin. 12. Lactulose 30 mL p.o. b.i.d. 13. Synthroid 120 mcg every day. 14. Linagliptin 5 mg daily. 15. Meropenem 500 mg IV q. 24 hours. 16. Zofran 4 mg. 17. Oxy-IR 5 mg p.o. q. 8 hours. 18. Protonix 40 mg IV every 24 hours. 19. Xarelto 10 mg p.o. daily. 20. Sevelamer 12.4 g p.o. t.i.d. 21. Diabetic diet and Nepro shake. PHYSICAL EXAMINATION: Vital signs: Temperature 99.2 degrees, pulse rate of 89, respiratory rate 20, blood pressure 136/71, saturating 97% on 3 L nasal cannula. Body weight of 216 pounds 0.8 ounces. BMI of 39.4 kg. The patient is obese, lying in bed, chronically confused. HEENT: Pale. No icterus. Neck: Supple. Abdomen: Obese, mildly protuberant, mildly distended. No guarding. No rebound. Nontender. Extremities: No cyanosis, no clubbing. Status post left knee arthroplasty. Neurologic: She was awake and confused. She would not answer any of my questions. LABS: Hemoglobin and hematocrit is 7.2 and 23.3, white count 9.5, platelet count of 225,000. MCV of 100.9, INR 1.04, PT of 10.9. ABG showing 7.23, PCO2 71,000, PO2 86 and lactate of 0.5. Sodium 136, potassium 5.6, chloride 195, bicarb 22, anion gap 19, BUN 6, creatinine 107, glucose 110, calcium 9.2, phosphorus 6.8, ammonia of 25, albumin 3.1, AST of 33, ALT 13, alkaline phos 83, total bilirubin is 0.31, direct less than 0.2. Ultrasound of the abdomen and CT of the abdomen, pelvis and chest noted in HPI. IMPRESSION AND PLAN: 1. New diagnosis of change in the contour of the liver and splenomegaly on imaging raising a question of cirrhosis. The patient has high risk factors of obesity, diabetes, hyperlipidemia which can cause fatty liver disease which can cause liver cirrhosis. We will perform chronic liver disease workup to exclude any other possible etiology causing heterogeneous echotexture of the liver. Of course the patient needs to lose weight to help treat fatty liver disease. 2. Constipation. Patient already on lactulose 30 mL p.o. b.i.d. and Colace. 3. GI prophylaxis on PPIs. 4. End-stage renal disease on hemodialysis per nephrology. 5. Pulmonary edema and acute hypercapnic respiratory failure using BiPAP as needed, being managed by pulmonology team. 6. Encephalopathy could be because of hypercarbia as her ammonia is normal. 7. Pericardial effusion being monitored by primary team. 8. Anemia. We will transfuse as needed. I will try to obtain records of last EGD and colonoscopy from our clinic. 9. Diverticulosis in the colon. She will continue to avoid constipation and avoid corn, nuts, and seeds in diet. 10. Anasarca. She is on Lasix per the primary team. 11. The above plan was discussed with the patient and nurse at bedside and family at bedside. All questions answered. cc: MD Shona Aviles MD Kirk L. Jackson, MD Robert S. Tapscott, MD Mamoun I. Najjar, MD Trav D. Gladish, MD
--- NOTE | 2017-03-21 09:25 | PROGRESS NOTE ---
DATE: 03/21/2017 SUBJECTIVE: The patient is a 56-year-old female, who is 8 days status post left total knee arthroplasty. Patient still experiencing confusion and secondary to encephalopathy. She received dialysis yesterday and received 2 units of packed red blood cells. PHYSICAL EXAMINATION: The patient is confused; however, cooperative with the exam and is following commands. Her left lower extremity wound looks good. There are no signs of infection. Calf is soft. She has active dorsiflexion and plantar flexion. LABORATORY DATA: Hemoglobin is 9.4, hematocrit 29.5. IMPRESSION: 1. Postoperative day #8, status post left total knee arthroplasty. 2. Encephalopathy. 3. End-stage renal disease on dialysis. 4. Anemia. PLAN: At this point, the patient is to undergo medical workup and awaiting GI evaluation for liver cirrhosis. cc: MD Shona Garcia MD MTDD
--- NOTE | 2017-03-21 10:09 | Diag Imaging Result Doc PS360 ---
EXAM: CHEST-PORTABLE HISTORY: dyspnea TECHNIQUE: AP portable sitting upright at 1000 COMMENT: There is cardiomegaly. There is perihilar opacity bilaterally consistent with mild pulmonary edema. This is more apparent than on the previous study of 03/20/2017, however the previous study was slightly better exposed. IMPRESSION: Cardiomegaly and mild pulmonary edema. Electronically signed by Drew Best 03/21/2017 10:07 AM
[2017-03-21 11:18] LABS: HEPATITIS PROFILE ACUTE SEE COMMENTS
--- NOTE | 2017-03-21 12:48 | PROGRESS NOTE ---
DATE: 03/21/2017 SUBJECTIVE: The patient is sitting up, eating breakfast with the assistance of the tech. The patient is still confused. No acute events noted overnight. OBJECTIVE: Vital Signs: Temperature 99.2 degrees, blood pressure 158/70, heart rate 84, respirations 18, O2 saturations 96% on 3 L nasal cannula. General: This is a morbidly obese female, lying in bed, in no acute distress. Head: Normocephalic, atraumatic. Neck: Supple. No JVD. No lymphadenopathy. Heart: S1, S2 normal. Regular rate and rhythm. Lungs: Equal air entry bilaterally, no crackles, no rales. Abdomen: Positive bowel sounds, soft , obese, nontender, nondistended. Extremities: No edema. No cyanosis. No calf tenderness. Neurologic: The patient is awake, but remains confused. She is able to move all 4 extremities. LABS: White blood cell count 11, hemoglobin 9.4, hematocrit 29, platelets 219, 000. Sodium 136, potassium 4.5, chloride 94, CO2 28, BUN 56, creatinine 5.4, glucose 144, calcium 8.3. IMAGING: Chest x-ray reveals mild pulmonary edema and cardiomegaly. ASSESSMENT AND PLAN: 1. Acute hypercapnic respiratory failure. Slowly improving. The patient is on BiPAP at night and nasal cannula during the day. Pulmonary is following. 2. Low-grade fever with leukocytosis. Will repeat blood cultures today and consult ID. 3. Pulmonary edema. Will continue to monitor for improvement. 4. Iron-deficiency anemia. The patient's hemoglobin and hematocrit is improved after receiving a blood transfusion yesterday. We will monitor the patient's hemoglobin and hematocrit. Gastroenterology is following. 5. End-stage renal disease. Management as per the director of special education. 6. Encephalopathy. Unchanged. Neurology is following. Will order an MRI of the brain. 7. Pericardial effusion. Stable. 8. Liver cirrhosis. The patient is currently undergoing a workup to determine the etiology. 9. Status post left total knee arthroplasty. Stable. 10. Diabetes mellitus type 2. Continue on Tradjenta and sliding scale insulin plus Levemir. 11. Deep vein thrombosis prophylaxis. The patient is on Xarelto. cc: Shona Posada MD MTDRodrick
--- NOTE | 2017-03-21 13:31 | Diag Imaging Result Doc PS360 ---
EXAM: MRI BRAIN W/O CONTRAST INDICATION: encephalopathy COMPARISON: None. FINDINGS: There is no evidence of acute infarct. There is marked diffuse brain atrophy. There is patchy T2/FLAIR hyperintensity in the periventricular and subcortical white matter suggesting mild microangiopathy. There is no discrete intracranial mass, mass effect, or intracranial hemorrhage. The surrounding soft tissues and bony structures are essentially unremarkable. IMPRESSION: Marked diffuse brain atrophy and suggestion of mild white matter microangiopathy but no definite acute intracranial pathology. Electronically signed by Jensen Roldan 03/21/2017 1:29 PM
[2017-03-21] MEDS ORDERED: MAXIPIME 1 GM in NS 50 ML IV SCH (17:45)
--- NOTE | 2017-03-21 17:48 | PROGRESS NOTE ---
DATE: 03/21/2017 TIME SEEN: 08:15. SUBJECTIVE: Ms. Jiang is resting quietly in bed. She is in no acute distress. Her skin is warm and dry. OBJECTIVE: Vital Signs: Temperature 99.1 degrees, blood pressure 158/70, heart rate 92, respirations are 14. She remains on 3 L nasal cannula. She is currently receiving a breathing treatment. She has had 1250, she has had 2400 out per dialysis. LABS: Sodium is 136, potassium 4.5, chloride 94, CO2 28, BUN 56, creatinine 5.4 , glucose 144. Her anion gap is 14, calcium 8.3, phosphorus 4.6, albumin 3.5. White count 11.14, hemoglobin 9.4, hematocrit 29.5, platelet count 219,000. Her ammonia level is 25, lactic acid of 0.60. Her ABGs; pH 7.326, PO2 61, PO2 121, bicarb 28.2, patient had these drawn on BiPAP at 30%. PHYSICAL EXAM: This is a 56-year-old white female. She remains confused. She remains pleasant today. She does assist with some commands.HEENT: Normocephalic, atraumatic. Conjunctivae pink. She has ZAC. Mucous membranes are moist. Neck: Supple. Trachea midline. No JVD. Cardiovascular: She is regular rate and rhythm. She has a soft systolic murmur noted. Lungs: Clear to auscultation anteriorly. Equal excursions. She remains on O2. Abdomen: Large, round, soft, nontender. Positive bowel sounds. Genitourinary: Not inspected. Minimal void with dialysis assist. Extremities: Have no edema. No clubbing or cyanosis. Neurological: As mentioned above. ASSESSMENT AND PLAN: 1. End-stage renal disease. Patient is due for her routine dialysis treatment in the morning. We will plan for her normal prescription per her routine labs. 2. Electrolytes and acid-base balance. These remain stable. 3. Anemia. This is improved after having 2 units of packed red blood cells on dialysis yesterday we will continue to monitor. It is noted that Dr. Chiang has now been consulted to evaluate blood loss with possible GI bleed. 4. Altered mental status. Patient remains in close observation. Respiratory status has improved. More alert and appropriate. rg 5. Left knee arthroplasty. This is currently being followed by Orthopedics. I would to thank you for allowing us to follow with this patient. Dictated by RUKHSANA Bone for Trav Christine MD Patient seen, data reviewed, discussed with Austin Ferraro on 03/21/17. I agree with the above assessment and plan of care. cc: RUKHSANA Bone MD Katherine Takundwa, MD [facility]
--- NOTE | 2017-03-21 20:35 | PROGRESS NOTE ---
DATE: 03/21/2017 GASTROENTEROLOGY FOLLOWUP: SUBJECTIVE: Patient currently resting in bed. She is still confused but she was able to recognize me today. She was able to answer my questions. She denies any abdominal pain, nausea, vomiting. She denies any vomiting or passing blood in stools. OBJECTIVE: Vitals: Temperature of 98.3 degrees, pulse rate of 80, respiratory rate 20, blood pressure 114/73, saturating 98% on 3 L nasal cannula. General: Malnourished , lying in bed, in no acute distress. HEENT: Mild pallor. No icterus. Neck: Supple. Abdomen: Obese, soft, nontender. No guarding. No rebound. Extremities: No cyanosis, clubbing. She is status post left knee replacement. Neurologic: She was awake and alert. Answers all questions. Has confusion off and on. LABS: Hemoglobin and hematocrit is 9.4 and 29.4, white count of 11.1, platelet count of 219,000. PH of 7.32, pCO2 61, PO2 121, this is on BiPAP with FiO2 30%. Sodium of 136, potassium 4.5, chloride 94, bicarb, anion gap 14, BUN of 56, creatinine of 5.4, glucose of 134 , calcium is 8.3, phosphorus 4.6. CRP 157.5, ammonia of 25, albumin of 3.5. Her SIMÓN is negative. Hepatitis panel is nonreactive. Her brain MRI was done showing marked diffuse brain atrophy and suggestion of mild white matter microangiopathy but no definite acute intracranial pathology was noted. IMPRESSION AND PLAN: 1. New diagnosis of possible liver cirrhosis. We will follow the chronic liver disease workup. We will continue to follow liver enzymes. 2. Anemia. Watch for now and transfuse as needed. Continue on iron supplementation. supplementation. 3. Acute hypercapnic respiratory failure. Slowly improving. She uses BiPAP at night. 4. Encephalopathy. Could be because of hypercarbia. We will evaluate her further once her CO2 normalizes. 5. Pericardial effusion. Stable. 6. Status post left total knee arthroplasty. Being followed by orthopedics team. 7. Type 2 diabetes, insulin sliding scale and Levemir and Tradjenta. 8. Gastrointestinal prophylaxis with proton pump inhibitors. The above plan of care was discussed with the patient's nurse at bedside. 09Please see dictation Dr. Garcia coronary Dr. Lu doctorate in chart Dr. Flores patient. cc: MD Kerry Pabon MD Manish Arora, MD Katherine Takundwa, MD Dr. Harris MTDD
[2017-03-21] MEDS: DULCOLAX PR SCH (20:39)
[2017-03-21] MEDS: OXY IR PO PRN (20:44)
[2017-03-21] MEDS: ICAR-C PO SCH (20:45)
[2017-03-22 04:35] LABS: ALLEN TEST YES; BE 3.6 mmoll (-3.0-3.0); BLOOD TYPE ARTERIAL; DRAW SITE R RADIAL; METHB 1.2 % (0.0-1.5); O2(CT) 12.8 mL/dL (15.0-23.0); PO2(98.6) 122 mmHg (60-100); SAMPLE BLOOD; SAO2 99.4 % (95.0-100.0); THB 9.3 g/dL (11.5-17.4); pH(98.6) 7.34 (7.35-7.45)
[2017-03-22 04:36] LABS: MODALITY BI PAP; PCO2(98.6) 56 mmHg (35-45)
[2017-03-22 06:24] LABS: MANUAL DIFF NEEDED? NO
[2017-03-22] MEDS: XARELTO PO SCH (06:28)
[2017-03-22] MEDS: PROTONIX IV SCH (06:29)
[2017-03-22] MEDS: SYNTHROID PO SCH (06:29)
[2017-03-22] MEDS: HUMULIN R SUBQ SCH ×4 (06:29→20:58)
[2017-03-22] MEDS: SODIUM CHLORIDE 0.9% INJ SCH (06:29)
[2017-03-22 06:35] LABS: BASO% 0.5 % (0.0-0.8); EOS# 0.31 X1000 (0.0-0.7); EOS% 2.3 % (0.0-10.0); HEMOGLOBIN 9.1 g/dL (12.0-16.0); IMM GRAN# 0.04 X1000 (0.0-0.04); IMM GRAN% 0.3 % (0.0-0.5); LYMPH# 0.74 X1000 (1.2-3.4); LYMPH% 5.5 % (20.5-51.1); MCH 31.1 PG (27-31); MCHC 32.5 g/dL (33-37); MCV 95.6 FL (81-99); MONO# 0.99 X1000 (0.11-0.59); MONO% 7.3 % (1.7-9.3); MPV 10.5 FL (7.4-10.4); NEUT% 84.1 % (42.2-75.2); PLT 261 X1000 (130-400); RBC 2.93 XMIL (4.2-5.4)
[2017-03-22] MEDS ORDERED: NS 2,000 ML ONE (06:44)
[2017-03-22] MEDS ORDERED: HEPARIN ONE (06:44)
--- NOTE | 2017-03-22 06:47 | CONSULTATION ---
DATE OF CONSULTATION: 03/21/2017 CONCLUSION: The patient approximately 2 days following a left total knee arthroplasty had a marked altered mental status the exact etiology of which is uncertain to me. She does have a mild leukocytosis but she has not had any fever. At this time I did not find any definite evidence of an infection. The knee where she had surgery on does not look infected either. It is not erythematous or swollen. RECOMMENDATIONS: Given her leukocytosis and the fact that she just had her knee replaced I think is reasonable to put the patient on an antibiotic. I am going to substitute cefepime for meropenem. DISCUSSION: The patient as mentioned above, underwent a left total knee arthroplasty. Approximately 2 days post surgery she developed a marked altered mental status. [place] [address], hemoglobin is 9.4, platelet count is 219,000. Her blood gases show a pH of 7.32, a PO2 of 121, a pCO2 of 61. Creatinine is 5.4. GFR is 8. Blood cultures earlier were negative and 2 blood cultures drawn today are pending. Chest x-ray shows cardiomegaly and mild pulmonary edema. An MRI of the brain showed marked diffuse atrophy. PAST MEDICAL HISTORY: Positive for end-stage renal disease. The patient is on hemodialysis. She has an AV fistula in the left arm. Patient also has hypothyroidism, chronic anemia, diabetes mellitus, morbid obesity, pica, hyperlipidemia, hypertension, peripheral neuropathy and a history of breast cancer. PAST SURGICAL HISTORY: Her surgical history is positive for a left mastectomy, hysterectomy, cholecystectomy. She has had a right and left AV shunt placed for dialysis. She has had a left reverse total shoulder arthroplasty. SOCIAL HISTORY: The patient does not smoke cigarettes and does not drink alcoholic beverages. FAMILY HISTORY: I am unable to obtain. REVIEW OF SYSTEMS: Unable to be obtained. PHYSICAL EXAMINATION: Temperature is 98.3 degrees, pulse 80, respirations 20, blood pressure 149/73. Patient is 5 feet 4 inches tall, weighs 223 pounds.General: This is an obese, middle- aged female. She is in no acute distress. Head, eyes, ears, nose, and throat: She can hear my spoken words. She can see near objects. No drainage noted from the nose or ears. Neck: No meningismus. Extremities: The patient has her knee in a machine that automatically flexes and extends it. The incision is intact. There is no erythema. The patient has an AV fistula in the left arm. The site is not erythematous or tender. Neurologic: Patient is awake. She did move her extremities to request. She was very confused. She was not oriented as to time or place. Abdomen: Soft without masses or tenderness. Thank you for the consult. cc: MD Shona Garber MD
[2017-03-22 07:00] LABS: ALBUMIN 3.5 g/dL (3.5-5.0); CALCIUM 9.6 mg/dL (8.8-10.2); POTASSIUM 4.9 mmol/L (3.5-5.1)
[2017-03-22] MEDS ORDERED: NS 2,000 ML MISC PRN (07:57)
[2017-03-22] MEDS ORDERED: HEPARIN IV PRN (07:57)
[2017-03-22] MEDS ORDERED: TIGHT: 0.2 ML/HR MISC PRN (07:57)
[2017-03-22] MEDS: RENVELA POWDER PACKET PO SCH ×3 (08:19→16:08)
[2017-03-22] MEDS: TRADJENTA PO SCH (08:19)
[2017-03-22] MEDS: PERIDEX MT SCH ×2 (08:19→20:41)
[2017-03-22] MEDS: LACTULOSE PO SCH ×2 (08:19→17:02)
[2017-03-22] MEDS: CENTRUM SILVER PO SCH (08:19)
[2017-03-22] MEDS: NEPHROCAPS PO SCH (08:19)
[2017-03-22] MEDS: LASIX PO SCH (08:20)
[2017-03-22] MEDS: NORVASC PO SCH (08:20)
[2017-03-22] MEDS: COLACE PO SCH ×2 (08:20→20:59)
[2017-03-22] MEDS: LEVEMIR SUBQ SCH (08:20)
[2017-03-22] MEDS: ASPIRIN PO SCH (08:20)
[2017-03-22] MEDS: ICAR-C PO SCH ×2 (08:24→20:41)
--- NOTE | 2017-03-22 12:27 | PROGRESS NOTE ---
DATE: 03/22/2017 SUBJECTIVE: The patient is a 56-year-old female who is 9 days status post left total knee arthroplasty. The patient is currently on BiPAP. She is following commands. OBJECTIVE: The patient's left lower extremity has some evidence of ecchymosis. The wound looks good. There are no signs or symptoms of infection. Calf is soft. She is able to plantar flex and dorsiflex her ankle. She is currently in a CPM for range of motion. IMPRESSION: 1. This is postop day #9 status post left total knee arthroplasty. 2. Encephalopathy. 3. End-stage renal disease. 4. Anemia, improved after transfusion. PLAN: At this point, patient is scheduled to undergo dialysis today. Will continue monitoring her progress with regards to encephalopathy. Will resume physical therapy once patient is more medically cleared. Will continue with CPM at this time for range of motion. cc: MD Shona Garcia MD
--- NOTE | 2017-03-22 16:38 | PROGRESS NOTE ---
DATE: 03/22/2017 SUBJECTIVE: Patient currently resting in bed eating breakfast. She has no complaints. She is still slow to respond, OBJECTIVE: Vital signs: Temperature 97.5 degrees, pulse 76, respiratory rate 17, blood pressure 166/66. Intake 420 mL. Output not measured General: This is a middle-aged female resting in bed. She is awake, alert, somewhat slow to respond but in no acute distress. HEENT: Normocephalic, atraumatic. She has glasses on. Oral mucosa moist. Neck: Supple. Trachea midline. No JVD. Cardiovascular: Regular rate and rhythm. Systolic murmur noted. Pulmonary: Equal excursion. She is clear bilaterally. Abdomen: Soft, positive bowel sounds. Genitourinary: Not inspected. Extremities: No clubbing, cyanosis or edema. Integumentary: Skin is warm and dry. LABORATORY DATA: WBC of 13.5, hemoglobin 9.1, sodium 139, potassium 4.9, CO2 26 , creatinine 6.5. ASSESSMENT AND PLAN: 1. End-stage renal disease management. Today is her routine dialysis day. On a 2 K bath/UF to dry weight/four hour treatment. 2. Electrolytes, acid-base balance anemia. These are stable. Hemoglobin stable after receiving packed red blood cells. Continue to monitor. Treat as warranted. 3. Altered mental status improving. Dictated by RUKHSANA Elena for Trav Christine MD Data reviewed, discussed with David Khoury on 03/22/17. I agree with the above assessment and plan of care. cc: MD Shona Pabon MD MTDD
[2017-03-22] MEDS ORDERED: MAXIPIME 1 GM in NS 50 ML IV ONE (17:00)
[2017-03-22] MEDS: DULCOLAX PR SCH (20:41)
[2017-03-22] MEDS: OXY IR PO PRN (20:43)
--- NOTE | 2017-03-22 23:17 | PROGRESS NOTE ---
DATE: 03/22/2017 SUBJECTIVE: The patient is resting comfortably in bed eating breakfast. She is more awake and alert today. No acute events noted overnight. OBJECTIVE: Vital Signs: Temperature 97 degrees, blood pressure 166/66, heart rate 76, respirations 17, O2 saturations 99% on 3 L nasal cannula. General: This is a morbidly obese female lying in bed in no acute distress. Heart: S1, S2. Normal. Regular rate and rhythm. Lungs: Clear to auscultation bilaterally. No crackles. No rales. No wheezing. Abdomen: Positive bowel sounds. Soft, obese, nontender, nondistended. Extremities: No edema. No cyanosis. No calf tenderness. Neurologic: The patient is alert and oriented x3. She is able to move all 4 extremities. LABS: White blood cell count 13, hemoglobin 9.1, hematocrit 28, platelets 261, 000. Sodium 139, potassium 4.9, chloride 95, CO2 26, BUN 85, creatinine 6.5, glucose 125, phosphorus 5.2, albumin 3.5. ASSESSMENT AND PLAN: 1. Acute hypercapnic respiratory failure. Improved. Continue with BiPAP at night. 2. Pulmonary edema. Slowly improving. 3. Iron deficiency anemia. The patient's hemoglobin and hematocrit are stable. 4. End-stage renal disease. The patient was dialyzed today. 5. Encephalopathy. Improved. 6. Liver cirrhosis. The workup is in progress. 7. Pericardial effusion. Stable. 8. Status post left total knee arthroplasty. Stable. 9. Diabetes mellitus type 2. Continue on Levemir plus sliding scale insulin. 10. Leukocytosis. The patient is currently on antibiotics. Will continue to monitor for improvement. Infectious Disease is following. 11. Deep vein thrombosis prophylaxis. Continue on Xarelto. cc: Shona Posada MD MTDD
[2017-03-23] MEDS: OXY IR PO PRN ×2 (04:24→16:37)
[2017-03-23 04:39] LABS: ALLEN TEST YES; BE 4.5 mmoll (-3.0-3.0); BLOOD TYPE ARTERIAL; DRAW SITE R RADIAL; METHB 1.7 % (0.0-1.5); O2(CT) 10.6 mL/dL (15.0-23.0); PO2(98.6) 155 mmHg (60-100); SAMPLE BLOOD; SAO2 98.9 % (95.0-100.0); THB 7.6 g/dL (11.5-17.4); pH(98.6) 7.38 (7.35-7.45)
[2017-03-23 04:40] LABS: MODALITY BI PAP; PCO2(98.6) 51 mmHg (35-45)
[2017-03-23] MEDS: XARELTO PO SCH (05:00)
[2017-03-23 05:20] LABS: MANUAL DIFF NEEDED? NO
[2017-03-23 05:50] LABS: ALBUMIN 3.2 g/dL (3.5-5.0); CALCIUM 8.9 mg/dL (8.8-10.2); POTASSIUM 4.5 mmol/L (3.5-5.1); TOTAL BILIRUBIN 0.3 mg/dL (0.20-1.00); TOTAL PROTEIN 6.7 g/dL (6.3-8.3)
[2017-03-23 05:51] LABS: BASO% 0.6 % (0.0-0.8); EOS# 0.31 X1000 (0.0-0.7); EOS% 2.6 % (0.0-10.0); HEMATOCRIT 26.6 % (37.0-47.0); HEMOGLOBIN 8.7 g/dL (12.0-16.0); IMM GRAN# 0.03 X1000 (0.0-0.04); IMM GRAN% 0.3 % (0.0-0.5); LYMPH# 0.92 X1000 (1.2-3.4); LYMPH% 7.7 % (20.5-51.1); MCH 31.4 PG (27-31); MCHC 32.7 g/dL (33-37); MONO# 0.94 X1000 (0.11-0.59); MONO% 7.9 % (1.7-9.3); MPV 10.3 FL (7.4-10.4); NEUT% 80.9 % (42.2-75.2); PLT 268 X1000 (130-400); RBC 2.77 XMIL (4.2-5.4)
[2017-03-23] MEDS: SYNTHROID PO SCH ×2 (05:52→06:00)
[2017-03-23] MEDS: PROTONIX IV SCH ×2 (05:52→05:59)
[2017-03-23] MEDS: HUMULIN R SUBQ SCH ×4 (05:59→21:20)
--- NOTE | 2017-03-23 07:23 | Diag Imaging Result Doc PS360 ---
EXAM: CHEST-PORTABLE HISTORY: abnormal exam TECHNIQUE: Portable chest COMPARISON: 03/21/2017 FINDINGS: The lungs are well expanded. The heart is markedly enlarged. There is mild pulmonary edema. Questionable tiny left pleural effusion. IMPRESSION: Persistent cardiomegaly with mild pulmonary edema. Electronically signed by Ralph Cortez 03/23/2017 7:21 AM
--- NOTE | 2017-03-23 08:06 | PROGRESS NOTE ---
DATE: 03/22/2017 PRESENT ILLNESS: The patient following surgery, had developed a striking change in her personality. Tonight it seems that she is much more relaxed. She is talking and seems in a coherent way. MEDICATIONS: The patient received cefepime after each dialysis. PHYSICAL EXAMINATION: Vital Signs: Temperature is 97.6, pulse 79, respirations 16, blood pressure 133/69. General: The patient appears to be in no acute distress. Lungs: Clear to auscultation. Cardiovascular: Regular heart rate. Abdomen: Soft and nontender. Extremities: The left knee incision is intact. There is no drainage and no erythema. The patient in her left arm has an AV fistula for dialysis. LAB AND X-RAY: There is no new x-ray. Lab for today shows there is an increase in the white count to 13,550, hemoglobin 9.1, and platelet count 261,000. The blood gases show a pH of 7.34, a pO2 of 122 and a pCO2 of 56. Creatinine 6.5, GFR is 7. ASSESSMENT AND PLAN: Altered mental status. Continue cefepime after dialysis. COMORBIDITIES: She has end-stage renal disease. She is on hemodialysis. She also has diabetes mellitus and morbid obesity. cc: MD Shona Garber MD MTDD
[2017-03-23] MEDS: RENVELA POWDER PACKET PO SCH ×3 (08:52→16:32)
[2017-03-23] MEDS: LASIX PO SCH (08:52)
[2017-03-23] MEDS: CENTRUM SILVER PO SCH (08:52)
[2017-03-23] MEDS: TRADJENTA PO SCH (08:52)
[2017-03-23] MEDS: COLACE PO SCH ×2 (08:52→21:53)
[2017-03-23] MEDS: NORVASC PO SCH (08:52)
[2017-03-23] MEDS: ASPIRIN PO SCH (08:52)
[2017-03-23] MEDS: PERIDEX MT SCH ×3 (08:52→22:09)
[2017-03-23] MEDS: LACTULOSE PO SCH ×3 (08:52→16:33)
[2017-03-23] MEDS: NEPHROCAPS PO SCH (08:52)
[2017-03-23] MEDS: LEVEMIR SUBQ SCH (08:53)
--- NOTE | 2017-03-23 09:15 | PROGRESS NOTE ---
DATE: 03/22/2017 SUBJECTIVE: The patient is resting in a chair. She denies any new complaints. She denies any fevers, rigors, chills. She denies any abdominal pain. She has been eating better. She has some constipation. Her last bowel movement was 2 days ago. OBJECTIVE: Vital signs: Temperature 97.5 degrees, pulse rate of 82, respiratory rate 17, saturating 94% room air, blood pressure of 166/66. General appearance: The patient is obese, sitting in chair, in no acute distress. HEENT: Mild pallor. No icterus. Neck: Supple. Abdomen: Obese, soft, nontender, nondistended. No guarding. No rebound. Extremities: No cyanosis, clubbing. extremities: She is status post left knee replacement. Neurological: Awake and alert. Answers questions. LABORATORIES: Hemoglobin and hematocrit are 9.1 and 28, white count 13.5, platelet count of 261,000. ABG showing pH of 7.34, pCO2 56, PO2 122, and she is on FiO2 of 30%. Sodium 139, potassium 4.9, chloride 195, bicarb 26, anion gap of 18, BUN of 87, creatinine of 6.5, glucose of 125, calcium 9.6, phosphorus 5.2. Her albumin is 3.5. Her alpha 1 antitrypsin is 144. Her SIMÓN is negative. Antimitochondrial antibody is less than 0.1, anti-smooth muscle antibody is negative. Hepatitis panel is nonreactive. IMPRESSION AND PLAN: 1. Constipation. Will start her on bowel regimen with Dulcolax suppository. I will also start on MiraLAX once daily by mouth. 2. Gastrointestinal prophylaxis with proton pump inhibitors. 3. New diagnosis of possible liver cirrhosis. Continue to follow up on liver disease workup. I suspect this is likely secondary to fatty liver disease. The patient was encouraged to lose weight and keep an eye on liver enzymes, which will be checking every 6 months. 4. Anemia. Going to watch for now. Continue on supplementation. 5. Acute hypercapnic respiratory failure, which is improving. She is using BiPAP at night. 6. Encephalopathy, likely secondary to hypercarbia, which is improving. Pericardial effusion stable. 7. Type 2 diabetes, on insulin sliding-scale, Levemir and Tradjenta. The above plan discussed with the patient. Answered all questions. cc: Dr. Emmett Decker [facility] MD Shona Aviles MD
[2017-03-23] MEDS: ICAR-C PO SCH ×2 (12:33→21:53)
--- NOTE | 2017-03-23 21:14 | PROGRESS NOTE ---
DATE: 03/23/2017 SUBJECTIVE: The patient is awake and alert and she ate all of her breakfast. She states that she does not have any complaints at this time. OBJECTIVE: Vital Signs: Temperature 97.9 degrees, blood pressure 143/59, heart rate 75, respirations 15, O2 saturations 98% on 3 L nasal cannula. General: This is a morbidly obese female lying in bed in no acute distress. Heart: S1, S2. Normal. Regular rate and rhythm. Lungs: Clear to auscultation bilaterally. No crackles. No rales. Abdomen: Positive bowel sounds. Soft, obese, nontender, nondistended. Extremities: No edema. No cyanosis. No calf tenderness. Neurologic: The patient is alert and oriented x3. No focal neurologic deficits noted. LABORATORIES: White blood cell count 11.9, hemoglobin 8.7, hematocrit 26, platelets 268,000. Sodium 137, potassium 4.5, chloride 96, CO2 32, BUN 67, creatinine 4.9, glucose 144. ABG: PH of 7.38, pCO2 51, PO2 155, bicarb 28. IMAGING: Chest x-ray shows cardiomegaly and mild pulmonary edema. ASSESSMENT AND PLAN: 1. Chronic hypercapnic respiratory failure. Continue with supplemental oxygen during the day and BiPAP at night. This appears to be improved. 2. Pulmonary edema. Slowly improving. 3. Iron-deficiency anemia. The patient's hemoglobin and hematocrit are slowly trending downward. We will continue to monitor this closely. 4. Encephalopathy. Improved. 5. End-stage renal disease. 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 6. Liver cirrhosis. Aware. Gastroenterology is following. 7. Status post left total knee arthroplasty. Stable. 8. Diabetes mellitus type 2. Continue on Levemir plus sliding scale insulin. 9. Leukocytosis. Slowly improving. Continue on IV antibiotic therapy. 10. Deep vein thrombosis prophylaxis. Continue on Xarelto. The patient is stable for transfer to the surgical floor. Will consult PT. cc: Shona Posada MD MTDD
[2017-03-23] MEDS: DULCOLAX PR SCH (21:53)
--- NOTE | 2017-03-23 22:40 | PROGRESS NOTE ---
DATE: 03/23/2017 SUBJECTIVE: Patient has been moved to a regular room from the intensive care unit. She is much more awake and alert. OBJECTIVE: Vital signs: Temperature 97.9 degrees, pulse 75, respiratory 15, blood pressure 143/59, intake 1.3 L, output 2.1 L. General: This is a middle-aged female resting in bed awake, alert. She is much more appropriate today. Does have occasional bouts of slowness. HEENT: Normocephalic, atraumatic. Oral mucosa moist. Neck: Supple. Trachea midline. There is no JVD noted. Cardiovascular: Regular rate and rhythm. There is a systolic murmur. Pulmonary: Equal excursion. She has no increased work of breathing. She remains on BiPAP at night. Abdomen: Soft with positive bowel sounds. : Not inspected. Extremities: No clubbing, cyanosis or edema. Integumentary: Skin is warm and dry. LAB DATA: WBC of 11.9, hemoglobin 8.7. Sodium 137, potassium 4.5, CO2 32, creatinine 4.9. ASSESSMENT AND PLAN: 1. End-stage renal disease management. She has a Saturday, Saturday, Saturday schedule. We dialyzed yesterday did not have issues with that, plan to dialyze again on Saturday. We have her at dry weight. 2. Hypercapnic respiratory failure. She continues on BiPAP at night. 3. Electrolytes, acid-base balance, anemia. These are stable. She has received transfusions while she has been in the hospital. Will continue to monitor closely. 4. Altered mental status continues to improve. Dictated by RUKHSANA Elena for Trav Christine MD cc: MD Shona Pabon MD
[2017-03-24 03:37] LABS: ALLEN TEST YES; BE 2.6 mmoll (-3.0-3.0); BLOOD TYPE ARTERIAL; DRAW SITE R RADIAL; METHB 1.1 % (0.0-1.5); O2(CT) 11.4 mL/dL (15.0-23.0); PCO2(98.6) 49 mmHg (35-45); PO2(98.6) 139 mmHg (60-100); SAMPLE BLOOD; SAO2 99.2 % (95.0-100.0); THB 8.2 g/dL (11.5-17.4); pH(98.6) 7.37 (7.35-7.45)
[2017-03-24 03:38] LABS: MODALITY BI PAP
[2017-03-24 05:49] LABS: MANUAL DIFF NEEDED? NO
[2017-03-24 06:07] LABS: BASO% 0.4 % (0.0-0.8); EOS# 0.44 X1000 (0.0-0.7); EOS% 3.2 % (0.0-10.0); HEMATOCRIT 24.6 % (37.0-47.0); HEMOGLOBIN 8.2 g/dL (12.0-16.0); IMM GRAN# 0.08 X1000 (0.0-0.04); IMM GRAN% 0.6 % (0.0-0.5); LYMPH# 1.06 X1000 (1.2-3.4); LYMPH% 7.6 % (20.5-51.1); MCH 31.4 PG (27-31); MCHC 33.3 g/dL (33-37); MCV 94.3 FL (81-99); MONO# 0.84 X1000 (0.11-0.59); MPV 10.2 FL (7.4-10.4); NEUT% 82.2 % (42.2-75.2); PLT 260 X1000 (130-400); RBC 2.61 XMIL (4.2-5.4)
[2017-03-24] MEDS: HUMULIN R SUBQ SCH ×3 (06:20→17:29)
[2017-03-24] MEDS: SODIUM CHLORIDE 0.9% INJ SCH (06:23)
[2017-03-24] MEDS: PROTONIX IV SCH (06:23)
[2017-03-24] MEDS: SYNTHROID PO SCH (06:23)
[2017-03-24] MEDS: XARELTO PO SCH (06:23)
[2017-03-24] MEDS: PERIDEX MT SCH ×2 (09:04→09:17)
[2017-03-24] MEDS: LACTULOSE PO SCH ×4 (09:05→18:13)
[2017-03-24] MEDS: LEVEMIR SUBQ SCH (09:05)
[2017-03-24] MEDS: LASIX PO SCH (09:07)
[2017-03-24] MEDS: TRADJENTA PO SCH (09:07)
[2017-03-24] MEDS: NORVASC PO SCH (09:07)
[2017-03-24] MEDS: ASPIRIN PO SCH (09:07)
[2017-03-24] MEDS: NEPHROCAPS PO SCH (09:07)
[2017-03-24] MEDS: ICAR-C PO SCH (09:07)
[2017-03-24] MEDS: COLACE PO SCH (09:07)
[2017-03-24] MEDS: CENTRUM SILVER PO SCH (09:08)
[2017-03-24] MEDS: RENVELA POWDER PACKET PO SCH ×3 (09:10→18:13)
[2017-03-24] MEDS: OXY IR PO PRN (13:24)
--- NOTE | 2017-03-24 17:21 | PROGRESS NOTE ---
DATE: 03/24/2017 SUBJECTIVE: Patient is a pleasant 57-year-old female who is 11 days status post left total knee arthroplasty. Patient is much improved and currently sitting in chair eating lunch. PHYSICAL EXAMINATION: Patient is awake, alert, cooperative with exam. Left lower extremity wound looks good. There is no sign of infection. Calf is soft. She is neurovascularly intact. LAB: Her hemoglobin is 8.2, hematocrit 24.6. IMPRESSION: 1. Postop day #11 status post left total knee arthroplasty. 2. Chronic hypercapnic respiratory failure improved. 3. Iron-deficiency anemia, encephalopathy improved. 4. End-stage renal disease. 5. Liver cirrhosis. PLAN: At this point patient will resume physical therapy with full weightbearing left lower extremity and gait training per total knee protocol, discharge planning is in progress for inpatient rehabilitation. Will plan on discharging to rehab once medically cleared. cc: MD Shona Garcia MD
--- NOTE | 2017-03-24 18:14 | PROGRESS NOTE ---
DATE: 03/24/2017 SUBJECTIVE: The patient is sitting on the bedside commode. She states that she feels a lot better. She is awake and alert. OBJECTIVE: Vital Signs: Temperature 98 degrees, blood pressure 167/68, heart rate 76, respirations 14, O2 saturation 98% on 2 L nasal cannula. General: This is an obese female, sitting on the bedside commode in no acute distress. Heart: S1, S2. Normal. Regular rate and rhythm. Lungs: Equal air entry bilaterally. No crackles. No rales. Abdomen : Positive bowel sounds. Soft, obese, nontender, nondistended. Extremities: No edema. No cyanosis. No calf tenderness. Neurologic: The patient is alert and oriented x4. LABORATORY: White blood cell count 13, hemoglobin 8.2, hematocrit 24, platelets 260,000. ASSESSMENT AND PLAN: 1. Chronic hypercapnic respiratory failure. Improved. Continue with BIPAP at night. 2. Pulmonary edema. Improved. 3. Iron deficiency anemia. The patient's hemoglobin and hematocrit are slowly trending downward. Transfuse p.r.n. 4. Encephalopathy. Resolved. 5. Liver cirrhosis. Aware. The patient is being followed by the butane compressor operator. 6. End-stage renal disease. Management as per the instrument technician helper. 7. Leukocytosis. Continue on antibiotic therapy as directed by Dr. Martin. 8. Status post left total knee arthroplasty. Stable. 9. Deep vein thrombosis prophylaxis. Continue on Xarelto. 10. Continue with physical therapy. cc: Shona Posada MD MTDD
[2017-03-25] MEDS: HUMULIN R SUBQ SCH ×4 (00:08→17:22)
[2017-03-25] MEDS: ICAR-C PO SCH ×3 (00:12→21:00)
[2017-03-25] MEDS: COLACE PO SCH ×4 (00:13→21:00)
[2017-03-25] MEDS: PERIDEX MT SCH ×3 (00:13→21:00)
[2017-03-25] MEDS: DULCOLAX PR SCH ×2 (00:14→21:01)
[2017-03-25] MEDS: OXY IR PO PRN ×2 (00:45→21:01)
[2017-03-25 05:39] LABS: MANUAL DIFF NEEDED? NO
[2017-03-25 05:51] LABS: BASO% 0.5 % (0.0-0.8); EOS# 0.57 X1000 (0.0-0.7); EOS% 4.3 % (0.0-10.0); HEMATOCRIT 23.2 % (37.0-47.0); HEMOGLOBIN 7.6 g/dL (12.0-16.0); IMM GRAN# 0.11 X1000 (0.0-0.04); IMM GRAN% 0.8 % (0.0-0.5); LYMPH% 7.5 % (20.5-51.1); MCH 30.4 PG (27-31); MCHC 32.8 g/dL (33-37); MCV 92.8 FL (81-99); MONO# 0.87 X1000 (0.11-0.59); MONO% 6.5 % (1.7-9.3); MPV 10.1 FL (7.4-10.4); NEUT% 80.4 % (42.2-75.2); PLT 252 X1000 (130-400)
[2017-03-25 06:05] LABS: CALCIUM 8.8 mg/dL (8.8-10.2); POTASSIUM 4.9 mmol/L (3.5-5.1)
[2017-03-25] MEDS: SYNTHROID PO SCH (06:28)
[2017-03-25] MEDS: PROTONIX IV SCH (06:28)
[2017-03-25] MEDS: XARELTO PO SCH (06:29)
[2017-03-25] MEDS ORDERED: HEPARIN ONE (08:15)
[2017-03-25] MEDS ORDERED: NS 2,000 ML ONE (08:16)
--- NOTE | 2017-03-25 08:19 | PROGRESS NOTE ---
DATE: 03/25/2017 PRESENT ILLNESS: The patient had developed an altered mental status after surgery. This appears to be much better. She, however, still continues to have a leukocytosis. MEDICATIONS: The patient gets cefepime after dialysis. PHYSICAL EXAMINATION: Vital Signs: Temperature is 98.3 degrees, pulse 76, respirations 12, blood pressure 135/62. General: This is an obese, middle-aged female. She is in no acute distress. Head, Eyes, Ears, Nose, and Throat: She is wearing glasses. She can hear my spoken words. She can see near objects. Lungs: Clear to auscultation. Cardiovascular: Heart rate is regular with a systolic murmur. Abdomen: Soft and nontender. Extremities: The patient's left arm has what appears be an AV fistula. It is working well. The patient's left knee incision is slightly erythematous superiorly. LAB AND X-RAY: CBC for today shows a white count of 13,300, hemoglobin 7.6, and platelet count 252,000. Blood cultures are negative. ASSESSMENT AND PLAN: Possibly, the patient has a little bit of cellulitis wound infection in the knee. It has not responded yet to cefepime. Therefore, I am discontinuing cefepime and putting the patient on vancomycin at a dose of 1 g intravenous after each dialysis. COMORBIDITIES: Include she has end-stage renal disease. She is on dialysis. She also is diabetic and is morbidly obese. cc: MD Kaushik Garber MD
[2017-03-25] MEDS ORDERED: HEPARIN IV PRN (08:31)
[2017-03-25] MEDS ORDERED: NS 2,000 ML MISC PRN (08:31)
[2017-03-25] MEDS ORDERED: TIGHT: 0.2 ML/HR MISC PRN (08:31)
[2017-03-25] MEDS: ASPIRIN PO SCH ×2 (10:49→13:39)
[2017-03-25] MEDS: RENVELA POWDER PACKET PO SCH ×4 (10:49→16:46)
[2017-03-25] MEDS: CENTRUM SILVER PO SCH ×2 (10:50→13:43)
[2017-03-25] MEDS: LACTULOSE PO SCH ×3 (10:50→16:44)
[2017-03-25] MEDS: LEVEMIR SUBQ SCH ×2 (10:51→13:42)
[2017-03-25] MEDS: LASIX PO SCH ×2 (10:51→13:40)
[2017-03-25] MEDS: NEPHROCAPS PO SCH ×2 (10:52→13:36)
[2017-03-25] MEDS: NORVASC PO SCH ×2 (10:52→13:39)
[2017-03-25] MEDS: TRADJENTA PO SCH ×2 (10:53→13:34)
--- NOTE | 2017-03-25 12:15 | PROGRESS NOTE ---
DATE: 03/25/2017 SUBJECTIVE: The patient is sitting up in bed undergoing hemodialysis. She is complaining of a bloody nose. She states it has been going on for a couple of days. OBJECTIVE: Vital Signs: Temperature 97.9 degrees, pulse 67, respiratory rate 16, blood pressure 142/61. Intake 800 mL. Output not measured. General: This is a middle-aged female, resting in bed. She is awake, alert, no acute distress. HEENT: Normocephalic atraumatic. She does have epistaxis. It is just a steady slow drip from the right nare. Oral mucosa is moist. Otherwise, she does have some blood noted to the mouth. Neck: Supple. Trachea midline. Trace JVD. Cardiovascular: Regular rate and rhythm with a systolic murmur. Pulmonary: Equal excursion. She has a little bit of rhonchi bilaterally. She has no increased work of breathing. Abdomen: Soft, with positive bowel sounds. : Not inspected. She has minimal void with hemodialysis assist. Extremities: She has 1+ pretibial edema. There is no clubbing or cyanosis. Integumentary: Skin is warm and dry. LAB DATA: WBC of 13.3, hemoglobin 7.6. Sodium 131, potassium 4.9, CO2 24, creatinine 7.9, albumin 3.0. ASSESSMENT AND PLAN: 1. End-stage renal disease management. She is on a Saturday, Saturday, Saturday schedule. We will continue this in the hospital. We will dialyze her on a 2 K bath/UF to dry weight/4-hour treatment. 2. Anemia of chronic and acute. Patient has received multiple units of packed red blood cells while in the hospital. She was stable for couple of days after her last transfusion, but has slowly had a trend downward. She does currently have a nose bleed, although unclear if that is affecting her current hemoglobin level. Regardless, we will go ahead and transfuse 2 units packed red blood cells while she is on dialysis today. We will also consult Heme Onc. GI following. 3. Hypercapnic respiratory failure. She had been on BiPAP. She is being weaned. 4. Altered mental status, improving. 5. Electrolytes, acid-base balance. See #1 for plan. 6. Fluid volume. We will take her down to dry weight today. Dictated by RUKHSANA Elena for Trva Christine MD Patient seen, data reviewed, discussed with David Khoury on 03/25/17. I agree with the above assessment and plan of care. cc: MD Kaushik Pabon MD [facility]
--- NOTE | 2017-03-25 15:34 | PROGRESS NOTE ---
DATE: 03/25/2017 SUBJECTIVE: Patient was resting in bed. She is undergoing dialysis. I spoke her case with Dr. Christine in the Dialysis Suite as well. The patient denies any nausea, vomiting, vomiting blood, passing blood in the stools. She has been having epistaxis the last 2 days. Even while she was on dialysis, she had some small trickle down her nose of fresh blood. She is going to get blood transfusion today. OBJECTIVE: Vital signs: Temperature 96.2, pulse rate 72, respiratory rate 18, blood pressure 123/60, saturating 98% room air. General Appearance: Obese, lying in bed, in no acute distress. HEENT: Pale conjunctivae. No icterus. Positive bright red blood around her external nares. Neck: Supple. Abdomen: Obese, soft, nontender, nondistended. No guarding. Extremities: No cyanosis, clubbing. Neurologic: She is awake, alert, and oriented. LABS: Hemoglobin and hematocrit is 7.6 and 23.2. White count of 13.3, platelet count of 252,000, MCV of 92.8. Sodium 139, potassium 4.9, chloride 93, bicarb 24, anion gap of 14, BUN of 116, and creatinine of 7.9, glucose of 128. Calcium is 8.8, phosphorus 5.6, albumin of 3. Her chronic liver disease workup in the form of alpha-1 antitrypsin level, ceruloplasmin level, antimitochondrial antibody level, antismooth antibody done were all negative. Her hepatitis panel was nonreactive. IMPRESSION AND PLAN: 1. Anemia, multifactorial likely combination of kidney disease, epistaxis. Could be a gastrointestinal source. We will check Hemoccult x3. Her last esophagogastroduodenoscopy was on 12/28/2016, which showed gastritis. Colonoscopy at that time could not be completed as the patient did not drink the bowel preparation. We will transfuse as needed. At some point, she will need a colonoscopy, but she has to heal from her knee surgery first. At that time, we will schedule for colonoscopy as outpatient. 2. Chronic hypercapnic respiratory failure, improved. She is to continue the BiPAP at night. 3. Fatty liver disease. Negative chronic liver disease workup. The patient was counseled to lose weight, and she will need to have a liver enzymes. Follow up every 6 months. 4. End-stage renal disease followed by Dr. Christine. 5. Epistaxis, being monitored by the primary care team. We may need ENT if she continues to have ongoing epistaxis. 6. Status post left total knee arthroplasty being followed by Dr. Mccabe. 7. Gastrointestinal prophylaxis on proton-pump inhibitors. 8. The patient is on Xarelto for deep venous thrombosis prophylaxis. This may have to be held as the patient is having active epistaxis. The above plan was discussed with the patient and Dr. Christine, and all questions answered. cc: MD Kaushik Aviles MD Reginald D. Gladish, MD Robert S. Tapscott, MD Dr. Najjar Dr. Harris Dr. Soliman Katherine Takundwa, MD
--- NOTE | 2017-03-25 16:08 | PROGRESS NOTE ---
DATE: 03/25/2017 SUBJECTIVE: Patient reports feeling fine sitting in the chair. No fever or chills reported. OBJECTIVE: Vital Signs: Temperature 98.2 degrees, heart rate 84, respiratory rate 20, blood pressure 133/78, O2 saturation 100% on room air. General Examination: This is a 57-year-old, obese, female, lying in bed, in no acute distress. HEENT: Head is normocephalic, atraumatic. Anicteric sclerae, pale conjunctivae. Mucous membranes moist. Neck: Supple. No JVD noted. No carotid bruits. No lymphadenopathy. No thyromegaly. Cardiovascular: S1, S2 heard. No murmurs, gallops, or rubs. Regular rate and rhythm. Respiratory Examination: Clear bilaterally to auscultation. No work of breathing or using accessory muscles. Abdomen: Soft, nontender to palpation, bowel sounds present. No organomegaly. Extremities: No clubbing, cyanosis, or edema. Peripheral pulses present in both legs. Neurologic: There is a dressing covering the left leg. Neurological Examination: Patient is alert and oriented x3. Moves 4 extremities. LABORATORY DATA: White cell count 13.3, hemoglobin 7.6, hematocrit 23.2, platelets 252,000, with BMP that shows sodium 131 with a BUN 116, creatinine 7.9, blood sugar 128. ASSESSMENT AND PLAN: 1. Chronic hypercapnic respiratory failure. We have not checked an ABG from today but from yesterday pH was okay with pCO2 49. We will continue with same management. 2. Iron deficiency anemia. The patient has been transfused 2 units of blood while in dialysis as per Nephrology. We are going to check CBC tomorrow. 3. Encephalopathy resolved. 4. Liver cirrhosis stable. The patient has been followed by GI. 5. End-stage renal disease on dialysis. The patient is on usual dialysis as per Nephrology. 6. Status post left knee stable. Patient is okay to go to rehabilitation as per Orthopedics. 7. Deep vein thrombosis prophylaxis on Xarelto. 8. Leukocytosis. Dr. Martin is continuing this patient on vancomycin after dialysis because this patient has a slight wound infection in the knee that had some response to cefepime. Patient is afebrile. White cell count is a little bit elevated so we will talk to him. If tomorrow patient gets a bed in a rehabilitation facility, we will see for how long he is going to provide antibiotics. cc: Kaushik Galloway MD
[2017-03-25] MEDS ORDERED: VANCOMYCIN 1 GM/NS 1 GM/250 ML IVPB IV ONE (17:00)
[2017-03-25] MEDS ORDERED: VANCOMYCIN 1 GM/NS 1 GM/250 ML IVPB IV SCH (17:00)
[2017-03-26] MEDS: HUMULIN R SUBQ SCH ×2 (05:23→06:06)
[2017-03-26] MEDS: PROTONIX IV SCH (06:14)
[2017-03-26] MEDS: SYNTHROID PO SCH (06:14)
[2017-03-26] MEDS: XARELTO PO SCH (06:14)
[2017-03-26] MEDS: OXY IR PO PRN (06:14)
--- NOTE | 2017-03-26 06:39 | PROGRESS NOTE ---
DATE: 03/26/2017 SUBJECTIVE: Patient is a pleasant 57-year-old female who is 13 days status post left total knee arthroplasty. The patient is currently resting comfortably and has no complaints. She is much improved with regards to her altered mental status. OBJECTIVE: On physical exam, left lower extremity has some ecchymoses anteriorly. Has no obvious signs or symptoms of infection. Calf is soft. She has active dorsiflexion and plantar flexion. IMPRESSION: 1. Postoperative day #13 status post left total knee arthroplasty. 2. End-stage renal disease requiring dialysis. 3. Iron-deficiency anemia. 4. Encephalopathy improved. 5. Leukocytosis, undergoing evaluation Dr. Martin. PLAN: At this point, the patient will continue mobilizing with physical therapy. We will plan on discharging to rehab once medically cleared. cc: MD Kaushik Garcia MD
--- NOTE | 2017-03-26 08:24 | PROGRESS NOTE ---
DATE: 03/26/2017 PRESENT ILLNESS: The patient I am seeing now because of her elevated white count. I think her white count elevation could be due to the erythema involving the patient's left total knee arthroplasty incision. MEDICATIONS: The patient now is on vancomycin, to be given after each dialysis. PHYSICAL EXAMINATION: Vital Signs: Temperature is 98.4 degrees, pulse 68, respirations 20, blood pressure 162/78. General: This is a slightly obese but otherwise fairly healthy-appearing, middle-aged female. She is in no acute distress. Lungs: Clear to auscultation. Cardiovascular: Regular heart rate. Abdomen: Soft and nontender. Extremities: The left knee incision is intact. There is erythema. The patient has an AV fistula in the left arm which is working well. LAB AND X-RAY: There is no new lab or x-ray today. ASSESSMENT AND PLAN: The patient may have some cellulitis of the wound infection. My plan is to continue with vancomycin after each dialysis and repeat the CBC tomorrow. Comorbidities in this patient, she has end-stage renal disease and is on dialysis. She also is diabetic and she is obese. cc: MD Kaushik Garber MD
--- NOTE | 2017-03-26 09:33 | PROGRESS NOTE ---
DATE: 03/26/2017 SUBJECTIVE: She is awake and alert. She is appropriate and interactive. OBJECTIVE: Vital Signs: Blood pressure 154/62, heart rate 66, respirations 20, afebrile. Intake 1 L. Output 2 L. General: No acute distress. Skin: Warm and dry. Eyes: Conjunctivae are pink. Oropharynx: Moist. Neck: Veins are not distended. Cardiovascular: Heart is regular. No gallops. Lungs: Have equal breath sounds. No crackles. Abdomen: Soft, nontender. Bowel sounds present. Extremities: Have minimal edema. No clubbing or cyanosis. LABORATORY DATA: None today. IMPRESSION AND PLAN: 1. End-stage kidney disease. She will have her next routine dialysis tomorrow. 2. Nutrition. Eating better. 3. Status post left total knee arthroplasty. Physical therapy. 4. Anemia. No new data today. We consulted Hematology. cc: MD Kaushik Pabon MD
[2017-03-26] MEDS: LASIX PO SCH (09:57)
[2017-03-26] MEDS: CENTRUM SILVER PO SCH (09:57)
[2017-03-26] MEDS: NEPHROCAPS PO SCH (09:57)
[2017-03-26] MEDS: ICAR-C PO SCH (09:57)
[2017-03-26] MEDS: COLACE PO SCH (09:57)
[2017-03-26] MEDS: ASPIRIN PO SCH (09:57)
[2017-03-26] MEDS: LACTULOSE PO SCH ×2 (09:57→10:23)
[2017-03-26] MEDS: TRADJENTA PO SCH ×2 (09:58→10:04)
[2017-03-26] MEDS: NORVASC PO SCH (09:58)
[2017-03-26] MEDS: RENVELA POWDER PACKET PO SCH ×2 (09:58→10:08)
[2017-03-26] MEDS: LEVEMIR SUBQ SCH (09:59)
[2017-03-26] MEDS: PERIDEX MT SCH ×2 (09:59→10:04)
[2017-03-26 12:21] VITALS: BP 148/74
[2017-03-26 12:55] LABS: MANUAL DIFF NEEDED? NO
[2017-03-26 13:04] LABS: BASO% 0.4 % (0.0-0.8); EOS# 0.46 X1000 (0.0-0.7); EOS% 3.4 % (0.0-10.0); HEMATOCRIT 30.8 % (37.0-47.0); HEMOGLOBIN 10.4 g/dL (12.0-16.0); IMM GRAN# 0.17 X1000 (0.0-0.04); IMM GRAN% 1.3 % (0.0-0.5); LYMPH# 0.87 X1000 (1.2-3.4); LYMPH% 6.4 % (20.5-51.1); MCH 31.2 PG (27-31); MCHC 33.8 g/dL (33-37); MCV 92.5 FL (81-99); MONO# 0.79 X1000 (0.11-0.59); MONO% 5.8 % (1.7-9.3); MPV 9.5 FL (7.4-10.4); NEUT% 82.7 % (42.2-75.2); PLT 246 X1000 (130-400); RBC 3.33 XMIL (4.2-5.4)
[2017-03-26 13:32] LABS: IRON SATURATION 30 %; TIBC 262 ug/dL; TOTAL IRON 79 ug/dL (49-151); UNBOUND IRON 183 ug/dL (112-346)
--- NOTE | 2017-03-26 13:32 | DISCHARGE SUMMARY ---
ADMISSION DATE: 03/13/2017 DISCHARGE DATE: 03/26/2017 CONSULTATIONS: 1. Dr. Mccabe with orthopedics. 2. Dr. Christine with nephrology. 3. Dr. Jewell with neurology. 4. Dr. Chiang with gastroenterology. 5. Dr. Carranza with pulmonology. 6. Dr. Martin with infectious disease. PERTINENT PROCEDURES: 1. Knee x-ray showed no complication. 2. Bone and soft tissue of the left knee arthroplasty showed degenerative joint disease, osteoarthritis. 3. Chest, abdomen and pelvis CT showed diffuse bilateral interstitial thickening suggesting pulmonary edema, cardiomegaly and moderate size pericardial effusion suggestive of very subtle nodular liver contour which may indicate cirrhosis, mildly prominent spleen, renal atrophy that has worsened during the interval, possible constipation, . 4. Head CT shows stable chronic changes. No evidence of acute intracranial pathology. 5. Abdominal ultrasound showed possible cirrhosis, bilateral renal atrophy which worsened since 12/09/2013, possibility of medical renal disease suspected, splenomegaly. 6. Echocardiogram with limited views showed an EF of 60% to 65%. 7. Brain MRI showed moderate diffuse brain atrophy and suggestion of mild white matter micro angiopathy, but no definite acute intracranial pathology. DISCHARGE DIAGNOSES: 1. Chronic hypercapnic respiratory failure, improved. Patient is now on room air. 2. Iron deficiency anemia status post 2 units of paced red blood cells. 3. Encephalopathy, resolved. 4. Liver cirrhosis, stable, followed by gastroenterology. The patient counseled to lose weight and will need to have follow up liver enzymes every 6 months. 5. End-stage renal disease on hemodialysis . 6. Status post left total knee arthroplasty performed by Dr. Mccabe. The patient will be discharged to rehabilitation. 7. Cellulitis wound infection of the left total knee arthroplasty with leukocytosis. The patient will continue with vancomycin during hemodialysis days Saturday, Saturday, Saturday. 8. Pulmonary edema, improved. 9. Diabetes mellitus type 2. Continue Levemir. 10. Pericardial effusion, stable. 11. Hypertension, controlled. 12. Constipation. Continue bowel regimen. 13. Epistaxis, resolved. HOSPITAL COURSE: Briefly, Ms. Jiang is a 57-year-old female who carries a past medical history of degenerative osteoarthritis of the left knee end-stage renal disease requiring hemodialysis Saturday, Saturday, Saturday, chronic anemia, diabetes mellitus type 2, hypertension, peripheral neuropathy. She was admitted by Dr. Lua for chronic history of worsening pain and discomfort over the left knee. X-ray revealed degenerative osteoarthritis. He recommended to proceed with a left total knee arthroplasty. Postop day 1, her hemoglobin and hematocrit had dropped to 5 and 17. She required 2 units of PRBC's. She also underwent hemodialysis during her hospitalization. On the second day postop, her hemoglobin and hematocrit again dropped to 6 and 21. She was given 2 more units of PRBC's. Her hemoglobin and hematocrit stabilized to 8 and 27. By postop day #5 her vital signs were stable. Prior to discharge she was afebrile, tolerating a regular diet. Her wounds looked good. There were no signs and symptoms of infection. She was slow to mobilize with physical therapy, and it was felt that she would benefit from inpatient rehabilitation. She was agreeable and this was arranged by Store Loss Prevention Manager. She was actually discharged by Dr. Mccabe, and the patient underwent her normal scheduled hemodialysis before being discharged. While Dr. Posada was doing her assessment, while the patient was in dialysis, she was noted to be lethargic. She was also noted to be febrile with a temperature of 100.4 degrees , as well as having asterixis. They felt it was a combination of toxic and metabolic encephalopathy. They discontinued several of her medications. They did perform a head CT that was unremarkable. Her ammonia level was normal. They consulted neurology and did neuro checks. Her discharge was initially held. They did chest, abdomen, pelvis CT to look for any underlying infection. They obtained cultures. Her CT did show pulmonary edema that was addressed during her dialysis session. It did show pericardial effusion. They did an echo. It did not show any tamponade. Again the CT of the chest, abdomen and pelvis did not reveal any obvious source of infection, but she was started on empiric antibiotic therapy. However, it did show nodular liver. They did an abdominal ultrasound and consulted GI. GI thought that her global encephalopathy was related to toxic metabolic, as well as infectious etiology. Brain MRI show marked diffuse brain atrophy suggestive of mild white matter micro angiopathy, but no definite acute intracranial pathology. She did develop an acute hypercapnic respiratory failure and was placed on BiPAP followed by Dr. Carranza. She was continued on IV antibiotics, bronchodilators. Her respiratory status improved. Her global encephalopathy improved. She has a persistent elevated white count. All blood cultures have been negative. Still no obvious signs of infection. Dr. Martin felt that it could be due to erythema involving the patient's left total knee arthroplasty incision. So his plan is to treat her for cellulitis with vancomycin after each dialysis session. Per GI , on her continued anemia they feel it is multifactorial, combination of her kidney disease. She did have Hemoccult- positive stool and they suggest outpatient EGD once she has healed from her knee surgery. We are also awaiting recommendations from hematology as consulted by nephrology today, and the patient will be discharged to rehabilitation. We will continue with her regular scheduled hemodialysis on Saturday, Saturday, Saturday. VITAL SIGNS: Temperature is 98.1 degrees, heart rate 72, respirations 22, blood pressure 148/74, O2 is 100% on room air. H/H 1030 at time of discharge. DISCHARGE DIET: Diabetic. DISCHARGE MEDICATIONS: As per Dr. Howard. Please see MAR. FOLLOWUP: Ms. Jiang is being discharged to rehabilitation. She will follow up with Dr. Ramsey Martin in 3-4 weeks. She will follow up with Dr. Chiang for outpatient EGD and colonoscopy. Continue on her regular scheduled hemodialysis on Saturday, Saturday, Saturday. She will return to the ED for any worsening of symptoms. DISCHARGE TIME: Greater than 35 minutes. Dictated by RUKHSANA Coker for Kaushik Galloway MD Addendum: Patient seen and examined by myself. Agree with RUKHSANA note. It reflects my assessment and plan. Patient admitted to hospital for a knee replacement but she developed sepsis. Patient started on broad spectrum antibiotics. No obvious source of infection. Clinically she is doing much better and encephalopathy resolved. Patient is being discharged in stable condition. Will continue with Vancomycin as per Dr. Martin recommendation. For anemia workup she will be seen as an outpatient by GI cc: Kaushik Galloway MD [facility]
[2017-03-26 13:35] LABS: FERRITIN 1011 ng/mL (13-150); VITAMIN D 25 HYDROXY 15.8 NG/DL
--- NOTE | 2017-03-27 03:24 | PROGRESS NOTE ---
DATE: 03/26/2017 ADDENDUM: The patient is to be going to a rehab facility today. I have asked Dr. Christine to give the patient 1 g of vancomycin after each dialysis for 3 weeks. I plan to see the patient back in the office in 3 weeks. I will examine her to see how her knee is doing and also repeat her CBC to see if her white count is coming down. cc: MD Kaushik Garber MD
--- NOTE | 2017-03-27 21:43 | CONSULTATION ---
DATE OF CONSULTATION: 03/26/2017 REASON FOR CONSULTATION: Consultation is requested for anemia. REQUESTING PHYSICIAN: Hospitalist service. HISTORY OF PRESENT ILLNESS: Ms. Jiang is a 57-year-old female who is known to us as we are currently are following the patient for a history of left breast cancer, status post mastectomy from July 2009. The patient also has a known history of anemia that is likely secondary to end-stage renal disease that we also follow her for. The patient has currently been admitted to the hospital in order to undergo a left total knee arthroplasty which was completed on 03/12/2017. The patient has been in the hospital since that time recovering from her surgery. The patient's hospital stay was extended due to experiencing some respiratory failure as well as encephalopathy and wound infection. We have currently been consulted due to the patient having continued anemia despite several blood transfusions. Currently, the patient is in her hospital room in no acute distress. PAST MEDICAL HISTORY: 1. COPD, emphysema. 2. Depression. 3. Diabetes. 4. Coronary artery disease. 5. End-stage renal disease, currently on hemodialysis. 6. Anemia. 7. Breast cancer. 8. Ulcerative colitis/Crohn's disease. 9. Hypertension. 10. Hepatitis. 11. Osteoarthritis. PAST SURGICAL HISTORY: 1. Total left knee replacement completed 03/12/2017. 2. Carpal tunnel surgery. 3. Status post cholecystectomy. 4. Hysterectomy. 5. Mastectomy in 2009. SOCIAL HISTORY: Patient does use alcohol on occasion. She is a nonsmoker. She is currently and she does not use any tobacco products. FAMILY HISTORY: The patient denies any coronary artery disease or renal disease in her family history. REVIEW OF SYSTEMS: A 12 point review of systems has been completed and negative except for that expressed in HPI. PHYSICAL EXAMINATION: Vital Signs: Temperature 98.3 degrees, heart rate 66, respirations 20, blood pressure 154/62, O2 saturation 100% on room air. General: This is a female sitting up in her hospital chair with a friend at bedside. She does not appear to be in any acute distress. Head: Normocephalic, atraumatic. Eyes: Pupils equal, round, reactive. Ears, nose, throat, neck, and mouth: Oral mucosa appears to be normal. Trachea is midline. Gross auditory acuity is intact. Cardiovascular: S1-S2 heard. Respiratory: Chest is clear to auscultation bilaterally. Normal respiratory effort. Gastrointestinal: Abdomen is obese, but soft, nontender, nondistended with positive bowel sounds. Musculoskeletal: Patient is status post left total knee arthroplasty. Her wound appears to be healing well at this time. She has some mild erythema, but no warmth noted. Extremities: Patient does have some swelling of that left extremity. Neurologic: Patient is alert and oriented x3. No focal motor deficits noted. LABORATORIES AND STUDIES: Hemoglobin from 03/25/2017 is 7.6 and hematocrit is 23.2, white blood cells 13.30, platelet count 252,000. Also from 03/25/2017 is sodium 131, potassium 4.9, chloride 93, CO2 24, BUN 116, creatinine 7.9, glucose 128. ASSESSMENT AND PLAN: 1. Anemia, likely multifactorial. Patient does have a history of iron deficiency anemia. She also has end-stage renal disease, which can be contributing to her anemia. The patient also reports that there is suspicion she may have a gastrointestinal bleed, that they have been trying to work up for a couple of months. We will go ahead at this time and check her vitamin studies, including iron, vitamin B12 and vitamin D and folate. We will replete as needed. If she were found to be iron deficient, definitely Hemoccult stool cards would be appropriate. The patient denies any melenic stools. 2. History of breast cancer. No evidence of recurrence. 3. Status post total left knee arthroplasty with a wound infection. Appears to be improving. Continue to follow with Dr. Mccabe and also Dr. Martin as scheduled. Thank you for consulting us on Ms. Jiang. We will continue to follow along and adjust our treatment plan per hospital course. Dictated by ECHO Teran for Alma Delia Kaufman MD cc: MD Kaushik Evans MD I have seen and examined the patient and agree with the above A/P. Alma Delia HOWE
== END 2017-03-26 15:50 ==
LOC: SURHOLD 01:37 → 4N 11:00 → ICU 03-18 18:32 → 4N 03-23 10:32
PROVIDERS: ADMIT Internal Medicine; ATTEND Orthopaedic Surgery Adult Reconstructive Orthopaedic Surgery